=== PATIENT | female | born 1985 | race Caucasian/White ===

== ENCOUNTER 2022-09-01 15:04 | Outpatient (OUT) | payer OTHER, SELFPAY ==
[2022-09-01 15:33] LABS: Basophils Percent Auto 0.2 % (0.2-2.0); Eosinophils Absolute Auto 0.2 10^3/uL (0.0-0.7); Eosinophils Percent Auto 1.7 % (0.9-7.0); Hematocrit 41.4 % (36.0-48.0); Hemoglobin 13.9 g/dL (12.0-16.0); Immature Granulocytes Abs Auto 0.02 10^3/uL (0.00-0.03); Immature Granulocytes Pct Auto 0.2 % (0.0-0.5); Lymphocytes Absolute Auto 2.2 10^3/uL (1.2-3.8); Lymphocytes Percent Auto 23.6 % (20.5-60.0); Mean Corpuscular HGB Conc 33.6 g/dL (29.9-35.2); Mean Corpuscular Hemoglobin 27.9 pg (26.7-34.0); Mean Corpuscular Volume 83.1 fL (81.0-99.0); Mean Platelet Volume 9.6 fL (9.5-13.5); Monocytes Absolute Auto 0.4 10^3/uL (0.3-0.8); Monocytes Percent Auto 4.2 % (1.7-12.0); Neutrophils Absolute Auto 6.5 10^3/uL (1.4-6.5); Neutrophils Percent Auto 70.1 % (43.0-75.0); Platelet Count 330 10^3/uL (150-450); Red Blood Count 4.98 10^6/uL (4.20-5.40); White Blood Count 9.2 10^3/uL (4.0-11.0)
== END 2022-09-01 15:05 | disposition home or self-care (01) ==
LOC: LAB 15:05
PROVIDERS: PCP Nurse Practitioner; Visit Provider Nurse Practitioner
DX: D50.9 Iron deficiency anemia, unspecified (principal)
CPT/HCPCS: 36415; 82728; 83540; 85025

== ENCOUNTER 2022-11-22 20:25 | Outpatient (REF) | payer OTHER, SELFPAY ==
[2022-11-25 10:10] LABS: Age Gdln ACOG Testing Note (.); HPV Aptima Negative (Negative); IGP, Aptima HPV, rfx 16/18,45 Note (.)
== END 2022-11-22 20:26 | disposition home or self-care (01) ==
LOC: LAB 20:25
PROVIDERS: PCP Nurse Practitioner; Visit Provider Obstetrics & Gynecology
DX: Z01.419 Encounter for gynecological examination (general) (routine) without abnormal findings (principal)
CPT/HCPCS: 87624; G0145

== ENCOUNTER 2022-12-01 09:54 | Outpatient (OUT) | payer OTHER, SELFPAY ==
[2022-12-01 12:35] LABS: Basophils Percent Auto 0.1 % (0.2-2.0); Eosinophils Absolute Auto 0.1 10^3/uL (0.0-0.7); Eosinophils Percent Auto 1.7 % (0.9-7.0); Hematocrit 41.6 % (36.0-48.0); Hemoglobin 14.2 g/dL (12.0-16.0); Immature Granulocytes Abs Auto 0.02 10^3/uL (0.00-0.03); Immature Granulocytes Pct Auto 0.2 % (0.0-0.5); Lymphocytes Absolute Auto 1.9 10^3/uL (1.2-3.8); Lymphocytes Percent Auto 23.3 % (20.5-60.0); Mean Corpuscular HGB Conc 34.1 g/dL (29.9-35.2); Mean Corpuscular Hemoglobin 29.8 pg (26.7-34.0); Mean Corpuscular Volume 87.2 fL (81.0-99.0); Mean Platelet Volume 9.9 fL (9.5-13.5); Monocytes Absolute Auto 0.5 10^3/uL (0.3-0.8); Monocytes Percent Auto 5.4 % (1.7-12.0); Neutrophils Absolute Auto 5.7 10^3/uL (1.4-6.5); Neutrophils Percent Auto 69.3 % (43.0-75.0); Platelet Count 288 10^3/uL (150-450); Red Blood Count 4.77 10^6/uL (4.20-5.40); Red Cell Distribution Width 12.8 % (11.0-15.0); White Blood Count 8.3 10^3/uL (4.0-11.0)
[2022-12-01 12:53] LABS: Percent Iron Saturation 29.1 %
[2022-12-01 13:02] LABS: Thyroid Stimulating Hormone 0.549 uIU/mL (0.358-3.740)
== END 2022-12-01 09:55 | disposition home or self-care (01) ==
LOC: LAB 09:55
PROVIDERS: PCP Nurse Practitioner; Visit Provider Obstetrics & Gynecology
DX: N93.9 Abnormal uterine and vaginal bleeding, unspecified (principal)
CPT/HCPCS: 36415; 82728; 83540; 83550; 84443; 85025

== ENCOUNTER 2023-02-04 15:40 | Outpatient (OUT) | payer OTHER, SELFPAY ==
[2023-02-04 16:30] LABS: Free T4 0.97 ng/dL (0.76-1.46)
== END 2023-02-04 15:41 | disposition home or self-care (01) ==
LOC: LAB 15:40
PROVIDERS: PCP Nurse Practitioner; Visit Provider Obstetrics & Gynecology
DX: R79.89 Other specified abnormal findings of blood chemistry (principal)
CPT/HCPCS: 36415; 84439

== ENCOUNTER 2023-11-07 13:34 | Outpatient (REF) | payer OTHER, SELFPAY ==
--- OUTSIDE RECORDS SUMMARY | 2023-11-10 13:57 | XMS_ITS | CCD ---
Author Organization [facility] Care Team Providers Care Auto Cleaner Name Role Phone PHONG OSEI Attending Unavailable PHONG OSEI Consulting Unavailable PHONG OSEI Admitting Unavailable REQUEST, NONE LISTED Primary Care Unavaila ble AICHHOLZ, MAINTAINABILITY ENGINEER DANII Admitting Unavailable AICHHOLZ, MAINTAINABILITY ENGINEER DANII Attending Unavailable AICHHOLZ, MAINTAINABILITY ENGINEER DANII Consulting Unavailable AICHHOLZ, MAINTAINABILITY ENGINEER DANII Primary Care Unavailable AICHHOLZ, MAINTAINABILITY ENGINEER DANII Admitting Unavailable AICHHOLZ, MAINTAINABILITY ENGINEER DANII Attending Unavailable AICHHOLZ, MAINTAINABILITY ENGINEER DANII Consulting Unavailable AICHHOLZ, MAINTAINABILITY ENGINEER DANII Primary Care Unavailable AICHHOLZ, MAINTAINABILITY ENGINEER DANII Attending Unavailable AICHHOLZ, MAINTAINABILITY ENGINEER DANII Consulting Unavailable AICHHOLZ, MAINTAINABILITY ENGINEER DANII Primary Care Unavailable AICHHOLZ, MAINTAINABILITY ENGINEER DANII Admitting Unavailable AMILCAR STILL Attending Unavailable AMILCAR STILL Consulting Unavailable AMILCAR STILL Admitting Unavailable REQUEST, NONE LISTED Primary Care Unavaila ble Amilcar Still Attending Provider Danii Daly Primary Care Provider Danii Daly Referring Provider Amilcar Still Attending Provider [phone] Danii Daly Primary Care Provider Danii Daly Referring Provider [phone] AMILCAR STILL Attending Unavailable AMILCAR STILL Attending Unavailable Danii Daly Primary Care Provider [phone] Amilcar Still Attending Provider [phone] Amilcar Still Attending Unavailable Danii Daly Primary Care Unavailable Guy Amilcar Admitting Unavailable Amilcar Still Attending Unavailable Danii Daly Primary Care Unavailable Guy, Amilcar Admitting Unavailable Guy, Amilcar Admitting Unavailable Guy, Amilcar Attending Unavailable Danii Daly Primary Care Unavailable Danii Daly Referring Unavailable Problems Active Problems Problem Classification Problem Date Documented Da te Episodic/Chronic Deficiency and other anemia (4 sources) Anemia, unspecified; Translations: [ANEMIA UNSPECIFIED] Onset: 05-30-2022 Episodic Other female genital disorders (1 source) Abnormal uterine and vaginal bleeding, unspecified; Translations: [Abnormal uterine and vaginal bleeding, unspecified] Onset: 12-17-2022 Chronic Unclassified (1 source) Unspecified lump in the left breast, overlapping quadrants; Translations: [Unspecified lump in the left breast, overlapping quadrants] Onset: 12-10-2022 Past or Other Problems Problem Classification Problem Date Documented Date Episodic/Chronic Administrative/social admission (4 sources) Encounter for pre-employment examination; Translations: [ENCOUNTER FOR PRE-EMPLOYMENT EXAM] Onset: 02-03-2022 Episodic Immunizations and screening for infectious disease (1 source) Encounter for screening for human papillomavirus (HPV); Translations: [ENC SCREENING HUMAN PAPILLOMAVIRUS] Onset: 11-19-2021 Episodic Other screening for suspected conditions (not mental disorders or infectious disease) (4 sources) Encounter for screening for malignant neoplasm of cervix; Translations: [ENC SCREENING MALIG NEOPLASM CERV] Onset: 11-18-2021 Episodic Results Test Name Value Interpretation Reference Range Facility US transvaginalon 12-17-2022 US transvaginal [facility] [place] [address] Ultrasound Report Signed Patient: Briana Mason MR#: [id number] : 1985 Acct:[id number] Age/Sex: 37 / F ADM Date: 12/17/22 Loc: Room: [facility] Dr: Amilcar Still Ordering Provider: Amilcar Still DO Date of Service: 12/17/22 US/US transvaginal: N93.9 ([id number]) US/US pelvic complete: N93.9 Copies to: Amilcar Still DO TRANSABDOMINAL AND TRANSVAGINAL PELVIC ULTRASOUND HISTORY: Heavy bleeding during menstruation FINDINGS: The uterus measures 11.0 x 4.6 x 6.2 cm uterus is elongated and retroverted.. No uterine lesion identified. The endometrium has a total combined thickness of 13mm. The RIGHT ovary measures 3.3 x 1.7 x 1.5 cm LEFT ovary measures 3.0 x 3.3 x 2.2 cm Bilateral ovarian blood flow identified. No free fluid identified. There is no adnexal mass identified. Nonspecific hypoechoic tissue adjacent to the LEFT ovary. US/US pelvic complete IMPRESSION: Unremarkable transabdominal and transvaginal pelvic ultrasound Impression dictated by: Norman Concepcion M.D.12/17/2022 5:29 PM Dictation Location: [place] [address] Tech: Ana Hernesto Transcribed By: [facility] 12/17/221728 Dictated By: Norman Concepcion DO 12/17/221725 Signed By: 12/17/221728 Normal [facility] MM diagnostic mammo BI w/CAD on 12-10-2022 MM diagnostic mammo BI w/CAD [facility] [place] [address] Ultrasound Report Signed Patient: Briana Mason MR#: [id number] : 1985 Acct:[id number] Age/Sex: 37 / F ADM Date: 12/10/22 Loc: [place] Room: Type: [facility] Attending Dr: Amilcar Still Ordering Provider: Amilcar Still DO Date of Service: 12/10/22 MM/MM diagnostic mammo BI w/CAD: SEE ORDER ([id number]) US/US breast LT complete: SEE ORDER Copies to: Amilcar Still DO CLINICAL DATA: Lump left breast. BilateralDIAGNOSTIC MAMMOGRAM - WITH TOMOSYNTHESIS AND CAD , leftLIMITED BREAST ULTRASOUND COMPARISON:Baseline study Tomosynthesis imaging was obtained using low-dose digital technique. This examination was reviewed with the aid of CAD. Additional ultrasound imaging was also obtained. Mammogram: The breasts are composed of scattered fibroglandular densities. No mammographic abnormality is seen involving the area of lump at the 2:00 position of the left breast. Focal asymmetry is seen at the approximately 12:00 position of the left breast, middle depth which partially compresses on the spot compression view. Ultrasound: In the area palpable lump at the 2:00 position of the left breast approximately 4 to 5 cm from nipple, no solid mass or cyst is noted. In the area of focal asymmetry at the 12:00 position of the left breast approximately 6 cm from nipple, no solid mass or cyst is noted. Incidentally note is made of a intramammary lymph node at the 5:00 position of the left breast. US/US breast LT complete IMPRESSION: NO MAMMOGRAPHIC OR ULTRASOUND EVIDENCE OF MALIGNANCY. THE PATIENT'S PALPABLE LUMP SHOULD BE HANDLED ON A CLINICAL BASIS. ROUTINE FOLLOW-UP IS RECOMMENDED IN ONE YEAR. RESULT CODE: 1 Negative DENSITY CODE: 2 (approximately 25-50% glandular) FOLLOW UP: 1YR The false-negative rate of mammography is approximately 10-percent. Management of a palpable abnormality must be based on clinical grounds. Impression dictated by: Martin Conn Jr., D.O.12/10/2022 8:46 AM Dictation Location: [facility] Tech: Jing Braden Transcribed By: RAJ 12/10/22845 Dictated By: Martin Conn Jr, DO 12/10/2244 Signed By: 12/10/22845 Normal [facility] OCC BLD IMMUNO SCREENon 05-09 OCCULT BLOOD Negative Normal NEGATIVE [facility] Comment on above: Performed By: #### H EPBSRF #### [facility] [address] [address] [address] Yanely Nuñez FERRITINon 05-28-2022 Ferritin [Mass/Vol] 5.0 ng/mL Critically low 6.2-137.[address] [facility] Comment on above: Performed By: #### I NICHOLE, VITB12, FERR #### [facility] [address] [place], [place] [address] Dr. Yanely Nuñez IRONon 05-28-2022 Iron [Mass/Vol] 14.0 ug/dL Critically low 50.0-170.0 [facility] Comment on above: Performed By: #### I NICHOLE VITB12, FERR #### [facility] [address] [place] [address] Dr. Yanely Nuñez VITAMIN B12on 05-28-2022 Cobalamin (Vitamin B12) [Mass/Vol] 929.0 pg/mL Normal 193.0-986.0 [facility] Comment on above: Performed By: #### I NICHOLE VITB12, FERR #### [facility] [address] [place] [address] Dr. Yanely Nuñez CBC AUTO DIFFon 05-27-2022 BASO # 0.0 103/ul Normal 0.0-0.1 [facility] Comment on above: Performed By: #### C BC #### [facility] [address] [place] [address] Dr. Yanely Nuñez Basophils/100 WBC (Bld) 0.1 % Critically low 0.2-2.0 [facility] Comment on above: Performed By: #### C BC #### [facility] [address] [place] [address] Dr. Yanely Nuñez EO # 0.1 103/ul Normal 0.0-0.7 [facility] Comment on above: Performed By: #### C BC #### [facility] [address] [place] [address] Dr. Yanely Nuñez Eosinophils/100 WBC (Bld) 2.0 % Normal 0.9-7.0 [facility] Comment on above: Performed By: #### C BC #### [facility] [address] [place] [address] Dr. Yanely Nuñez Erythrocyte distribution width (RBC) [Ratio] 17.1 % Critically high 11.0-15.0 [facility] Comment on above: Performed By: #### C BC #### [facility] [address] [place] [address] Dr. Yanely Nuñez Hematocrit (Bld) [Volume fraction] 32.1 % Critically low 36.0-48.0 [facility] Comment on above: Performed By: #### C BC #### [facility] [address] [place] [address] Dr. Yanely Nuñez Hemoglobin (Bld) [Mass/Vol] 9.3 g/dL Critically low 12.0-16.0 [facility] Comment on above: Performed By: #### C BC #### [facility] [address] [place] [address] Dr. Yanely Nuñez IG # 0.02 10e3/ul Normal 0.00-0.03 [facility] Comment on above: Performed By: #### C BC #### [facility] [address] [place] [address] Dr. Yanely Nuñez IG % 0.3 % Normal 0.0-0.5 [facility] Comment on above: Performed By: #### C BC #### [facility] [address] [place] [address] Dr. Yanely Nuñez LYMPH # 1.5 103/ul Normal 1.2-3.8 [facility] Comment on above: Performed By: #### C BC #### [facility] [address] [place] [address] Dr. Yanely Nuñez Lymphocytes/100 WBC (Bld) 22.5 % Normal 20.5-60.0 [facility] Comment on above: Performed By: #### C BC #### [facility] [address] [place] [address] Dr. Yanely Nuñez MANUAL DIFF REQ NO Normal [facility] Comment on above: Performed By: #### C BC #### [facility] [address] [place] [address] Dr. Yanely Nuñez MCH (RBC) [Entitic mass] 20.3 pg Critically low 26.7-34.0 [facility] Comment on above: Performed By: #### C BC #### [facility] [address] [place] [address] Dr. Yanely Nuñez MCHC (RBC) [Mass/Vol] 29.0 g/dL Critically low 29.9-35.2 [facility] Comment on above: Performed By: #### C BC #### [facility] [address] [place] [address] Dr. Yanely Nuñez MCV (RBC) [Entitic vol] 70.1 fL Critically low 81.0-99.0 [facility] Comment on above: Performed By: #### C BC #### [facility] [address] [place] [address] Dr. Yanely Nuñez MONO # 0.5 103/ul Normal 0.3-0.8 [facility] Comment on above: Performed By: #### C BC #### [facility] [address] [address] [address] Yanely Nuñez Monocytes/100 WBC (Bld) 7.0 % Normal 1.7-12.0 [facility] Comment on above: Performed By: #### C BC #### [facility] [address] [place] [address] Dr. Yanely Nuñez NEUT # 4.7 103/ul Normal 1.4-6.5 [facility] Comment on above: Performed By: #### C BC #### [facility] [address] [place] [address] Dr. Yanely Nuñez Neutrophils/100 WBC (Bld) 68.1 % Normal 43.0-75.0 [facility] Comment on above: Performed By: #### C BC #### [facility] [address] [place] [address] Dr. Yanely Nuñez Platelet mean volume (Bld) [Entitic vol] 9.9 fL Normal 9.5-13.5 [facility] Comment on above: Performed By: #### C BC #### [facility] [address] [place] [address] Dr. Yanely Nuñez PLT 488 103/ul Critically high 150-450 [facility] Comment on above: Performed By: #### C BC #### [facility] [address] [place] [address] Dr. Yanely Nuñez RBC 4.58 106/ul Normal 4.20-5.40 [facility] Comment on above: Performed By: #### C BC #### [facility] [address] [place] [address] Dr. Yanely Nuñez WBC 6.9 103/ul Normal 4.0-11.0 [facility] Comment on above: Performed By: #### C BC #### [facility] [address] [place] [address] Dr. Yanely Nuñez GLYCOHEMOGLOBIN A1Con 2022 ADA RECOMMENDATION SEE BELOW Normal [facility] Comment on above: Result Comment: ADA RECOMMENDED LIMIT 4.0 - 6.0 ADA THERAPEUTIC TARGET < 7.0 ACTION SUGGESTED > 7.0 Performed By: #### A 1C #### [facility] [address] [place] [address] Dr. Yanely Nuñez Glucose [Mass/Vol] 114 mg/dL Normal [facility] Comment on above: Performed By: #### A 1C #### [facility] [address] [place] [address] Dr. Yanely Nuñez HbA1c (Bld) [Mass fraction] 5.6 % Normal 4.5-6.2 [facility] Comment on above: Performed By: #### A 1C #### [facility] [address] [place] [address] Dr. Yanely Nuñez LIPID PROFILEon 05-27-2022 CHOL-HDL RATIO NORM SEE BELOW Normal [facility] Comment on above: Result Comment: 3.3 - 4.4 LOW RISK 4.4 - 7.1 AVERAGE RISK 7.1 - 11.0 MODERATE RISK >11.0 HIGH RISK Performed By: #### C MP, LIPID, TSH #### [facility] [address] [place] [address] Dr. Yanely Nuñez Cholesterol [Mass/Vol] 207 mg/dL Critically high <=200 [facility] Comment on above: Performed By: #### C MP, LIPID, TSH #### [facility] [address] [address] [address] Yanely Nuñez Cholesterol in HDL [Mass/Vol] 54 mg/dL Normal 40-60 [facility] Comment on above: Performed By: #### C MP, LIPID, TSH #### [facility] [address] [address] [address] Yanely Nuñez Cholesterol in LDL [Mass/Vol] 141.0 mg/dL Normal [facility] Comment on above: Performed By: #### C MP, LIPID, TSH #### [facility] [address] [address] [address] Yanely Nuñez Cholesterol.total/Ch olesterol in HDL [Mass ratio] 3.8 {ratio} Normal [facility] Comment on above: Performed By: #### C MP, LIPID, TSH #### [facility] [address] [address] [address] Yanely Nuñez HDL NORMAL > or = 60 mg/dl - LO W CARDIOVASCULAR RISK <40 mg/dl - HIGH CARDIOVASCULAR RISK Normal [facility] Comment on above: Performed By: #### C MP, LIPID, TSH #### [facility] [address] [place] [address] Dr. Yanely Nuñez LDL CALC NORMAL SEE BELOW Normal [facility] Comment on above: Result Comment: <100 mg/dl OPTIMAL 100 - 129 mg/dl NEAR OR ABOVE OPTIMAL 130 - 159 mg/dl BORDERLINE HIGH 160 - 189 mg/dl HIGH >190 mg/dl VERY HIGH Performed By: #### C MP, LIPID, TSH #### [facility] [address] [address] [address] Yanely Nuñez Triglyceride [Mass/Vol] 60 mg/dL Normal <=150 [facility] Comment on above: Performed By: #### C MP, LIPID, TSH #### [facility] [address] [place] [address] Dr. Yanely Nuñez VLDL CALC 12.0 mg/dL Normal [facility] Comment on above: Performed By: #### C MP, LIPID, TSH #### [facility] [address] [address] [address] Yanely Nuñez PROF 14(COMP METB)on 023 Albumin [Mass/Vol] 4.0 g/dL Normal 3.4-5.0 [facility] Comment on above: Performed By: #### C MP, LIPID, TSH #### [facility] [address] [place] [address] Dr. Yanely Nuñez Albumin/Globulin [Mass ratio] 1.0 {ratio} Normal [facility] Comment on above: Performed By: #### C MP, LIPID, TSH #### [facility] [address] [address] [address] Yanely Nuñez ALP [Catalytic activity/Vol] 57 U/L Normal 46-116 [facility] Comment on above: Performed By: #### C MP, LIPID, TSH #### [facility] [address] [address] [address] Yanely Nuñez ALT [Catalytic activity/Vol] 111 U/L Critically high 14-59 [facility] Comment on above: Performed By: #### C MP, LIPID, TSH #### [facility] [address] [address] [address] Yanely Nuñez Anion gap [Moles/Vol] 13.1 mmol/L Normal [facility] Comment on above: Performed By: #### C MP, LIPID, TSH #### [facility] [address] [address] [address] Yanely Nuñez AST [Catalytic activity/Vol] 34 U/L Normal 15-37 [facility] Comment on above: Performed By: #### C MP, LIPID, TSH #### [facility] [address] [address] [address] Yanely Nuñez Bilirubin [Mass/Vol] 0.4 mg/dL Normal 0.2-1.0 [facility] Comment on above: Performed By: #### C MP, LIPID, TSH #### [facility] [address] [address] [address] Yanely Nuñez Calcium [Mass/Vol] 9.5 mg/dL Normal 8.5-10.1 [facility] Comment on above: Performed By: #### C MP, LIPID, TSH #### [facility] [address] [address] [address] Yanely Nuñez Chloride [Moles/Vol] 104 mmol/L Normal 98-107 [facility] Comment on above: Performed By: #### C MP, LIPID, TSH #### [facility] [address] [address] [address] Yanely Nuñez CO2 [Moles/Vol] 27.2 mmol/L Normal 21.0-32.0 [facility] Comment on above: Performed By: #### C MP, LIPID, TSH #### [facility] [address] [place] [address] Dr. Yanely Nuñez Creatinine [Mass/Vol] 0.76 mg/dL Normal 0.55-1.02 [facility] Comment on above: Performed By: #### C MP, LIPID, TSH #### [facility] [address] [address] [address] Yanely Nuñez EGFR-AF BANGLADESHI >60 Normal >=60 [facility] Comment on above: Performed By: #### C MP, LIPID, TSH #### [facility] [address] [place] [address] Dr. Yanely Nuñez EGFR-NON AF BANGLADESHI >60 Normal >=60 [facility] Comment on above: Performed By: #### C MP, LIPID, TSH #### [facility] [address] [place] [address] Dr. Yanely Nuñez Globulin (S) [Mass/Vol] 4.0 g/dL Normal [facility] Comment on above: Performed By: #### C MP, LIPID, TSH #### [facility] [address] [place] [address] Dr. Yanely Nuñez Glucose [Mass/Vol] 86 mg/dL Normal 74-106 [facility] Comment on above: Performed By: #### C MP, LIPID, TSH #### [facility] [address] [address] [address] Yanely Nuñez Potassium [Moles/Vol] 4.3 mmol/L Normal 3.5-5.1 [facility] Comment on above: Performed By: #### C MP, LIPID, TSH #### [facility] [address] [place] [address] Dr. Yanely Nuñez Protein [Mass/Vol] 8.0 g/dL Normal 6.4-8.2 [facility] Comment on above: Performed By: #### C MP, LIPID, TSH #### [facility] [address] [place] [address] Dr. Yanely Nuñez Sodium [Moles/Vol] 140 mmol/L Normal 136-145 [facility] Comment on above: Performed By: #### C MP, LIPID, TSH #### [facility] [address] [place] [address] Dr. Yanely Nuñez Urea nitrogen [Mass/Vol] 13.0 mg/dL Normal 7.0-18.0 [facility] Comment on above: Performed By: #### C MP, LIPID, TSH #### [facility] [address] [place] [address] Dr. Yanely Nuñez Urea nitrogen/Creatinine [Mass ratio] 17.1 mg/mg Normal [facility] Comment on above: Performed By: #### C MP, LIPID, TSH #### [facility] [address] [place] [address] Dr. Yanely Nuñez TSHon 05-27-2022 TSH 0.862 uIU/mL Normal 0.358-3.740 [facility] Comment on above: Performed By: #### C MP, LIPID, TSH #### [facility] [address] [place] [address] Dr. Yanely Nuñez QUANTIFERON TB GOLD PLUSon 1 QuantiFERON Criteria Comment [facility] Comment on above: Result Comment: Leoncio tiFERON-TB Gold Plus is a qualitative indirect test for M tuberculosis infection (including disease) and is intended for use in conjunction with risk assessment, radiography, and other medical and diagnostic evaluations. The QuantiFERON-TB Gold Plus result is determined by subtracting the Nil value from either TB antigen (Ag) value. The Mitogen tube serves as a control for the test. Performed By: #### H EPBSRF #### [facility] [address] [place] [address] Dr. Yanely Nuñez QuantiFERON Incubation Incubation performed. Normal [facility] Comment on above: Performed By: #### H EPBSRF #### [facility] [address] [place] [address] Dr. Yanely Nuñez QuantiFERON Mitogen Value >10.00 Normal [facility] Comment on above: Performed By: #### H EPBSRF #### [facility] [address] [address] [address] Yanely Nuñez QuantiFERON Nil Value 0.03 IU/mL Normal [facility] Comment on above: Performed By: #### H EPBSRF #### [facility] [address] [place] [address] Dr. Yanely Nuñez QuantiFERON TB1 Ag Value 0.04 IU/mL Normal [facility] Comment on above: Performed By: #### H EPBSRF #### [facility] [address] [address] [address] Yanely Nuñez QuantiFERON TB2 Ag Value 0.03 IU/mL Normal [facility] Comment on above: Performed By: #### H EPBSRF #### [facility] [address] [place] [address] Dr. Yanely Nuñez QuantiFERON-TB Gold Plus Negative Normal Negative [facility] Comment on above: Result Comment: No r esponse to M tuberculosis antigens detected. Infection with M tuberculosis is unlikely, but high risk individuals should be considered for additional testing (ATS/IDSA/CDC Clinical Practice Guidelines, 2017). The reference range is an Antigen minus Nil result of <0.35 IU/mL. Chemiluminescence immunoassay methodology Performed By: #### H EPBSRF #### [facility] [address] [place] [address] Dr. Yanely Nuñez HEPATITIS B SURFACE ANTIBODY , QUANTon 02-05-2022 Hepatitis B Surf AB Quant >1000.0 Normal Immunity>9.9 [facility] Comment on above: Result Comment: Stat us of Immunity Anti-HBs Level Inconsistent with Immunity 0.0 - 9.9 Consistent with Immunity >9.9 Performed By: #### H EPBSRF #### [facility] [address] [place] [address] Dr. Yanely Nuñez MMR IMMUNITYon 02-05-2022 Mumps Abs, IgG 56.4 AU/mL Normal Immune >10.9 [facility] Comment on above: Result Comment: Nega tive <9.0 Equivocal 9.0 - 10.9 Positive >10.9 A positive result generally indicates past exposure to Mumps virus or previous vaccination. Performed By: #### H EPBSRF #### [facility] [address] [place] [address] Dr. Yanely Nuñez Rubella Antibodies, IgG 2.90 index Normal Immune >0.99 [facility] Comment on above: Result Comment: Non- immune <0.90 Equivocal 0.90 - 0.99 Immune >0.99 Performed By: #### H EPBSRF #### [facility] [address] [place] [address] Dr. Yanely Nuñez Rubeola Ab, IgG 183.0 AU/mL Normal Immune >16.[address] [facility] Comment on above: Result Comment: Nega tive <13.5 Equivocal 13.5 - 16.4 Positive >16.4 Presence of antibodies to Rubeola is presumptive evidence of immunity except when acute infection is suspected. Performed By: #### H EPBSRF #### [facility] [address] [place] [address] Dr. Yanely Nuñez VARICELLA IGG ABon 2 Varicella Zoster IgG 483 index Normal Immune >165 [facility] Comment on above: Result Comment: Nega tive <135 Equivocal 135 - 165 Positive >165 A positive result generally indicates exposure to the pathogen or administration of specific immunoglobulins, but it is not indication of active infection or stage of disease. Performed By: #### H [id number] #### [facility] [address] [place] [address] Dr. Yanely Nuñez PAP ACOG PANEL 2: 30 to 65on 11-25-2021 . . Normal [facility] Comment on above: Result Comment: Perf ormed at: WB Performed By: #### [id number] #### [facility] [address] [place] [address] Dr. Yanely Nuñez Age Gdln ACOG Testing 30-65 [facility] Comment on above: Performed By: #### [id number] #### [facility] [address] [place] [address] Dr. Yanely Nuñez DIAGNOSIS: Comment Normal [facility] Comment on above: Result Comment: NEGA TIVE FOR INTRAEPITHELIAL LESION OR MALIGNANCY. Performed at: WB Performed By: #### [id number] #### [facility] [address] [place] [address] Dr. Yanely Nuñez HPV Aptima Negative Normal Negative [facility] Comment on above: Result Comment: This nucleic acid amplification test detects fourteen high-risk HPV types (16,18,31,33,35,39,45,51,52,56,58,59,66,68) without differentiation. Performed at: =G Performed By: #### [id number] #### [facility] [address] [address] [address] Yanely Nuñez Methodology: Comment Normal [facility] Comment on above: Result Comment: This liquid based ThinPrep(R) pap test was screened with the use of an image guided system. Performed at: WB Performed By: #### [id number] #### [facility] [address] [place] [address] Dr. Yanely Nuñez Note: Comment Normal [facility] Comment on above: Result Comment: The Pap smear is a screening test designed to aid in the detection of premalignant and malignant conditions of the uterine cervix. It is not a diagnostic procedure and should not be used as the sole means of detecting cervical cancer. Both false-positive and false-negative reports do occur. . Performed at: WB Performed By: #### [id number] #### [facility] [address] [place] [address] Dr. Yanely Nuñez Performed by: Comment Normal [facility] Comment on above: Result Comment: Darlin Cline, [employer] Management System Operator (ASCP) Performed at: WB Performed By: #### [id number] #### [facility] [address] [place] [address] Dr. Yanely Nuñez Specimen adequacy: Comment Normal [facility] Comment on above: Result Comment: Sati sfactory for evaluation. Endocervical and/or squamous metaplastic cells (endocervical component) are present. Performed at: WB Performed By: #### [id number] #### [facility] [address] [place] [address] Dr. Yanely Nuñez Encounters Encounter Date Encounter Type Care Provider Facility Start: 11-07-2023 End: 11-07-2023 ambulatory AMILCAR GUY Not Available Start: 11-07-2023 End: 11-07-2023 Departed Referred Danii Addy Work Phone: [facility] Path [facility] Start: 01-26-2023 End: 01-26-2023 ambulatory AMILCAR GUY Not Available Start: 12-17-2022 End: 12-17-2022 Patient encounter procedure Danii Addy Work Phone: [facility] Work Phone: Start: 12-17-2022 End: 12-17-2022 ambulatory Danii Valdez Salmat[place]abby Work Phone: [facility] Work Phone: Start: 12-10-2022 End: 12-10-2022 Patient encounter procedure Danii Urenagabby Work Phone: [facility] Work Phone: Start: 12-10-2022 End: 12-10-2022 ambulatory Danii Valdez [place] Work Phone: [facility] Work Phone: Start: 05-31-2022 Encounter for genera l adult medical examination without abnormal findings NAYELY DALY [facility] Start: 05-30-2022 End: 05-30-2022 ambulatory 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 Facility:[facility] Start: 05-28-2022 End: 05-29-2022 ambulatory NAYELY DALY Facility:[facility] Start: 05-27-2022 End: 05-28-2022 ambulatory NAYELY DALY Facility:[facility] Start: 05-27-2022 End: 05-28-2022 Encounter for general adult medical examination without abnormal findings NAYELY DALY Facility:[facility] Start: 02-03-2022 End: 02-04-2022 ambulatory PHONG SEA Facility:[facility] Start: 11-18-2021 End: 11-18-2021 ambulatory AMILCAR STILL Facility:[facility] Procedures Date Procedure Procedure Detail Performing Clinician Start: 12-17-2022 Pelvic echography Danii Daly Work Phone: Start: 12-17-2022 Transvaginal echography Danii Daly Work Phone: Start: 12-10-2022 Bilateral mammography L evelyn Daly Work Phone: Payers Date Payer Category Payer Unknown [id number] [id number] 1985 Unknown [id number] 2.16.84 [id number] 1985 Unknown [id number] 2.16.84 [id number] 1985 Unknown [id number] 2.16.84 [id number] 1985 Unknown [id number] 2.16.84 [id number] 1985 Unknown [id number] [id number] 1959 Private Health Insurance [id number] 1959 Private Health Insurance [id number] 1959 Self-pay Unknown [id number] 2.16.84 [id number] Unknown [id number] 2.16.8 [id number] Unknown [id number] 2.16.8 [id number] Unknown [id number] 2.16.8 [id number] Social History Date Type Detail Facility Tobacco smoking stat [facility] Unknown if ever smoked [facility] Work Phone: Start: 1985 Sex Assigned At Female F [facility] Evaluation note Note Date & Type Note Facility Evaluation note No assessment information availa chery [facility] Work Phone: Summary Purpose Family History No Family History Records FoundNo Family History Records FoundNo Family History Records Found Advance Directives No Advanced Directives Records Found Advance Directive Response Recorded Date/ Time Advance Directives No December 02, 2022 3:01pm Advance Directive Response Recorded Date/ Time Advance Directives No December 02, 2022 2:01pm Chief Complaint and Reason for Visit Chief Complaint Screening Chief Complaint Screening n93.9 Chief Complaint Unknown Additional Source Comments INFORMATION SOURCE (unrecogn ized section and content) DATE CREATED AUTHOR 06/04/2022 [facility] DATE CREATED AUTHOR AUTHOR'S ORGANIZ ATION 11/08/2023 [facility] EPIC DATE CREATED AUTHOR AUTHOR'S ORGANIZ ATION 11/10/2023 [facility] Care Teams (unrecognized sec tion and content) Team Status: Active Member Role Status Dates Danii Daly Primary Care Provider Active Team Status: Inactive Member Role Status Dates Amilcar Still Attending Provider Active Danii Daly Primary Care Provider, Referring Provi petty Active Team Status: Inactive Member Role Status Dates Danii Daly Primary Care Provider Active Amilcar Still Attending Provider Active Team Status: Inactive Member Role Status Dates Danii Daly Primary Care Provider Active Sta rt: November 07, 2023 End: November 07, 2023 Amilcar Still DO Attending Provider Active Start : November 07, 2023 End: November 07, 2023 Goals (unrecognized section and content) Goals may be documented in a n alternate sectionGoals may be documented in an alternate sectionGoals may be documented in an alternate section FOR RECORDS PERTAINING TO PATIENTS WHO ARE OR HAVE BEEN ENROLLED IN A CHEMICAL DEPENDENCY/SUBSTANCEABUSE PROGRAM, SOME INFORMATION MAY BE OMITTED. This clinical summary was aggregated from multiple sources. Caution should be exercised in using it in the provision of clinical care. This summary normalizes information from multiple sources, and as a consequence, information in this document may materially change the coding, format and clinical context of patient data. In addition, data may be omitted in some cases. CLINICAL DECISIONS SHOULD BE BASED ON THE PRIMARY CLINICAL RECORDS. [facility] [facility]. provides no warranty or guarantee of the accuracy or completeness of information in this document.
== END 2023-11-07 13:35 ==
LOC: LAB 13:34
PROVIDERS: PCP Nurse Practitioner; Visit Provider Obstetrics & Gynecology
DX: N92.0 Excessive and frequent menstruation with regular cycle (principal)
CPT/HCPCS: 88305

== ENCOUNTER 2023-11-14 11:09 | Outpatient (OUT) | payer OTHER, SELFPAY ==
--- OUTSIDE RECORDS SUMMARY | 2023-11-14 11:17 | XMS_ITS | CCD ---
Author Organization [facility] Care Team Providers Care Template Layout Worker Name Role Phone PHONG OSEI Attending Unavailable PHONG OSEI Consulting Unavailable PHONG OSEI Admitting Unavailable REQUEST, NONE LISTED Primary Care Unavaila ble AICHHOLZ, COMMODITY BUYER DANII Admitting Unavailable AICHHOLZ, COMMODITY BUYER DANII Attending Unavailable AICHHOLZ, COMMODITY BUYER DANII Consulting Unavailable AICHHOLZ, COMMODITY BUYER DANII Primary Care Unavailable AICHHOLZ, COMMODITY BUYER DANII Admitting Unavailable AICHHOLZ, COMMODITY BUYER DANII Attending Unavailable AICHHOLZ, COMMODITY BUYER DANII Consulting Unavailable AICHHOLZ, COMMODITY BUYER DANII Primary Care Unavailable AICHHOLZ, COMMODITY BUYER DANII Attending Unavailable AICHHOLZ, COMMODITY BUYER DANII Consulting Unavailable AICHHOLZ, COMMODITY BUYER DANII Primary Care Unavailable AICHHOLZ, COMMODITY BUYER DANII Admitting Unavailable AMILCAR STILL Attending Unavailable AMILCAR STILL Consulting Unavailable AMILCAR STILL Admitting Unavailable REQUEST, NONE LISTED Primary Care Unavaila ble Amilcar Still Attending Provider [phone] Danii Daly Primary Care Provider [phone] Danii Daly Referring Provider [phone] Amilcar Still Attending Provider [phone] Danii Daly Primary Care Provider Danii Daly Referring Provider AMILCAR STILL Attending Unavailable AMILCAR STILL Attending Unavailable Danii Daly Primary Care Provider DO Amilcar Still Attending Provider [phone] Amilcar Still Attending Unavailable Danii Daly Primary Care Unavailable Guy, Amilcar Admitting Unavailable Guy, Amilcar Attending Unavailable SalmatirsoLeila pierrea José Miguel Primary Care Unavailable Guy, Amilcar Admitting Unavailable Guy, Amilcar Admitting Unavailable Guy, Amilcar Attending Unavailable Salmatirsogabby Danii Valdez Primary Care Unavailable Leila Dalya José Miguel Referring Unavailable Problems Active Problems Problem Classification [...] Results Test Name Value Interpretation Reference Range [facility] 11-07-2023 L Specimen: [id number] Received: 11/08/23 Status: PATIENCE Alfredo Num: [id number] Spec Type: Surgical Subm Dr: Amilcar Still Tissues: A Endometrium - Biopsy (ENDOMETRIAL BX) Procedures: HE/2, Gross/Micro L4 Age/ Patient Sex Location Account Attending Physician Talha Gonzalez 38/F LABELL [id number] Amilcar Still SPEC NUM: [id number] RECD: 11/08/23 STATUS: PATIENCE ALFREDO NUM: [id number] SHARRI: 11/07/23- SUBM DR: Amiclar Still ENTERED: 11/08/[address] [facility] DR: Bhavya Best SPEC TYPE: Surgical DEPT: JUAN CARLOS MEEHAN ENTERED BY: [id number] RECV BY: [id number] ORDERED: HE/2, Gross/Micro L4 ORDERED: HE/2, Gross/Micro L4 Pathological Diagnosis Endometrial biopsy: -Multiple small strips of the slightly disordered proliferative endometrium of the early to mid phase type without hyperplasia or atypia identified Clinical Information Menorrhagia N92.0 Gross Description The specimen is received in formalin with the patient's name and endometrial biopsy and consists of multiple zhao-pink, mucoid, soft tissue fragments measuring 2.0 x 1.5 x 0.3 cm in aggregate. The specimen is filtered and entirely submitted in cassette A1. Microscopic Description Microscopic examinations are performed supporting the above interpretation -------- Specimen: [id number] Received: 11/08/23 Status: PATIENCE Alfredo Num: [id number] Spec Type: Surgical Subm Dr: Amilcar Still Tissues: A Endometrium - Biopsy (ENDOMETRIAL BX) Procedures: ARDEN/Burak, Gross/Micro L4 -------- Patient: Talha Gonzalez [id number] (Continued) -------- Specimen: [id number] Received: 11/08/23 (Continued) Signed (signature on file) Javon Nuñez MD 11/10/23 1053 -------- Specimen: [id number] Received: 11/08/23 Status: PATIENCE Alfredo Num: [id number] Spec Type: Surgical Subm Dr: Amilcar Still Tissues: A Endometrium - Biopsy (ENDOMETRIAL BX) Procedures: ARDEN/Allyssa Sumner/Cora L4 -------- Patient: Talha Gonzalez [id number] (Continued) -------- Specimen: [id number] Received: 11/08/23 (Continued) CPT Codes 16585 -------- -------- Specimen: [id number] Received: 11/08/23 Status: PATIENCE Juni Num: [id number] Spec Type: Surgical Subm Dr: Amilcar Still Tissues: A Endometrium - Biopsy (ENDOMETRIAL BX) Procedures: HE/Burak, Gross/Micro L4 -------- Patient: Talha Gonzalez [id number] (Continued) -------- Signed (signature on file) Javon Nuñez MD 11/10/23 1053 Normal [facility] US transvaginalon 12-17-2022 [place] [address] Ultrasound Report Signed Patient: Talha Gonzalez MR#: [id number] : 1985 Acct:[id number] Age/Sex: 37 / F ADM Date: 12/17/22 Loc: Room: Type: [facility] CLI Attending Dr: Amilcar Still Ordering Provider: Amilcar Still DO Date of Service: 12/17/22 US/US transvaginal: N93.9 ([id number]) US/US pelvic complete: N93.9 Copies to: Amilcar [...] Norman Concepcion M.D.12/17/2022 5:29 PM Dictation Location: [place] [address] Tech: Ana Eric Transcribed By: [facility] 12/17/221728 Dictated By: Norman Concepcion DO 12/17/221725 Signed By: 12/17/221728 Normal [facility] MM diagnostic mammo BI w/CAD on 12-10-2022 MM diagnostic mammo BI w/CAD [facility] [place] [address] Ultrasound Report Signed Patient: Talha Gonzalez MR#: [id number] : 1985 Acct:[id number] Age/Sex: 37 / F ADM Date: 12/10/22 Loc: [place] Room: Type: [facility] CLI Attending Dr: Amilcar Still Ordering Provider: Amilcar Still DO Date of Service: 12/10/22 MM/MM diagnostic mammo BI w/CAD: SEE ORDER ([id number]) US/US breast LT complete: SEE ORDER Copies [...] grounds. Impression dictated by: Martin Conn Jr., D.OJorge12/10/2022 8:46 AM Dictation Location: [facility] Tech: Jing Garciasa Sampson Transcribed By: RAJ 12/10/22845 Dictated By: Martin Conn Jr DO 12/10/2244 Signed By: 12/10/22845 Normal [facility] OCC BLD IMMUNO SCREENon 05-09 OCCULT BLOOD Negative Normal NEGATIVE [facility] Comment on above: Performed By: #### H EPBSRF #### [facility] [address] [place] [address] Dr. Yanely Nuñez FERRITINon 05-28-2022 Ferritin [Mass/Vol] 5.0 ng/mL Critically low 6.2-137.0 [facility] Comment on above: Performed By: #### I NICHOLE VITB12, FERR #### [facility] [address] [place] [address] Dr. Yanely Nuñez IRONon 05-28-2022 Iron [Mass/Vol] 14.0 ug/dL Critically low 50.0-170.0 [facility] Comment on above: Performed By: #### I NICHOLE VITB12, FERR #### [facility] [address] [place] [address] Dr. Yanely Nuñez VITAMIN B12on 05-28-2022 Cobalamin (Vitamin B12) [Mass/Vol] 929.0 pg/mL Normal 193.0-986.0 [facility] Comment on above: Performed By: #### I MICHEL VARELA2, FERR #### [facility] [address] [place] [address] Dr. Yanely Nuñez CBC AUTO DIFFon 05-27-2022 BASO # 0.0 103/ul Normal 0.0-0.1 [facility] Comment on above: Performed By: #### C BC #### [facility] [address] [place] [address] Dr. Yanely Nuñez Basophils/100 WBC (Bld) 0.1 % Critically low 0.2-2.0 [facility] Comment on above: Performed By: #### C BC #### [facility] [address] [place] [address] Dr. Yanely Nuñez EO # 0.1 103/ul Normal 0.0-0.7 [facility] Comment on above: Performed By: #### C BC #### [facility] [address] [place] [address] Dr. Yanely Nuñez Eosinophils/100 WBC (Bld) 2.0 % Normal 0.9-7.0 [facility] Comment on above: Performed By: #### C BC #### [facility] [address] [place] [address] Dr. Yanely Nuñez Erythrocyte distribution width (RBC) [Ratio] 17.1 % Critically high 11.0-15.0 [facility] Comment on above: Performed By: #### C BC #### [facility] [address] [place] [address] Dr. Yanely uNñez Hematocrit (Bld) [Volume fraction] 32.1 % Critically low 36.0-48.0 [facility] Comment on above: Performed By: #### C BC #### [facility] [address] [place] [address] Dr. Yanely Nuñez Hemoglobin (Bld) [Mass/Vol] 9.3 g/dL Critically low 12.0-16.0 [facility] Comment on above: Performed By: #### C BC #### [facility] [address] [place] [address] Dr. Yanely Nuñez IG # 0.02 10e3/ul Normal 0.00-0.03 [facility] Comment on above: Performed By: #### C BC #### [facility] [address] [place] [address] Dr. Yanely Nuñez IG % 0.3 % Normal 0.0-0.5 [facility] Comment on above: Performed By: #### C BC #### [facility] [address] [place] [address] Dr. Yanely Nuñez LYMPH # 1.5 103/ul Normal 1.2-3.8 [facility] Comment on above: Performed By: #### C BC #### [facility] [address] [place] [address] Dr. Yanely Nuñez Lymphocytes/100 WBC (Bld) 22.5 % Normal 20.5-60.0 [facility] Comment on above: Performed By: #### C BC #### [facility] [address] [place] [address] Dr. Yanely Nuñez MANUAL DIFF REQ NO Normal [facility] Comment on above: Performed By: #### C BC #### [facility] [address] [place] [address] Dr. Yanely Nuñez MCH (RBC) [Entitic mass] 20.3 pg Critically low 26.7-34.0 [facility] Comment on above: Performed By: #### C BC #### [facility] [address] [place] [address] [address] Yanely Nuñez MCHC (RBC) [Mass/Vol] 29.0 g/dL Critically low 29.9-35.2 [facility] Comment on above: Performed By: #### C BC #### [facility] [address] [place] [address] [address] Yanely Nuñez MCV (RBC) [Entitic vol] 70.1 fL Critically low 81.0-99.0 [facility] Comment on above: Performed By: #### C BC #### [facility] [address] [place] [address] [address] Yanely Nuñez MONO # 0.5 103/ul Normal 0.3-0.8 [facility] Comment on above: Performed By: #### C BC #### [facility] [address] [place] [address] [address] Yanely Nuñez Monocytes/100 WBC (Bld) 7.0 % Normal 1.7-12.0 [facility] Comment on above: Performed By: #### C BC #### [facility] [address] [place] [address] [address] Yanely Nuñez NEUT # 4.7 103/ul Normal 1.4-6.5 [facility] Comment on above: Performed By: #### C BC #### [facility] [address] [place] [address] [address] Yanely Nuñez Neutrophils/100 WBC (Bld) 68.1 % Normal 43.0-75.0 [facility] Comment on above: Performed By: #### C BC #### [facility] [address] [place] [address] [address] Yanely Nuñez Platelet mean volume (Bld) [Entitic vol] 9.9 fL Normal 9.5-13.5 [facility] Comment on above: Performed By: #### C BC #### [facility] [address] [place] [address] [address] Yanely Nuñez PLT 488 103/ul Critically high 150-450 [facility] Comment on above: Performed By: #### C BC #### [facility] [address] [place] [address] Dr. Yanely Nuñez RBC 4.58 106/ul Normal 4.20-5.40 [facility] Comment on above: Performed By: #### C BC #### [facility] [address] [place] [address] [address] Yanely Nuñez WBC 6.9 103/ul Normal 4.0-11.0 [facility] Comment on above: Performed By: #### C BC #### [facility] [address] [place] [address] Dr. Yanely Nuñez GLYCOHEMOGLOBIN A1Con 2022 ADA RECOMMENDATION SEE BELOW Normal [facility] Comment on above: Result Comment: ADA RECOMMENDED LIMIT 4.0 - 6.0 ADA THERAPEUTIC TARGET < 7.0 ACTION SUGGESTED > 7.0 Performed By: #### A 1C #### [facility] [address] [place] [address] Dr. Yanely Nuñez Glucose [Mass/Vol] 114 mg/dL Normal [facility] Comment on above: Performed By: #### A 1C #### [facility] [address] [place] [address] Dr. Yanely Nuñez HbA1c (Bld) [Mass fraction] 5.6 % Normal 4.5-6.2 [facility] Comment on above: Performed By: #### A 1C #### [facility] [address] [place] [address] Dr. Yanely Nuñez LIPID PROFILEon 05-27-2022 CHOL-HDL RATIO NORM SEE BELOW Normal [facility] Comment on above: Result Comment: 3.3 - 4.4 LOW RISK 4.4 - 7.1 AVERAGE RISK 7.1 - 11.0 MODERATE RISK >11.0 HIGH RISK Performed By: #### C MP, LIPID, TSH #### [facility] [address] [place] [address] Dr. Yanely Nuñez Cholesterol [Mass/Vol] 207 mg/dL Critically high <=200 [facility] Comment on above: Performed By: #### C MP, LIPID, TSH #### [facility] [address] [place] [address] [address] Yanely Nuñez Cholesterol in HDL [Mass/Vol] 54 mg/dL Normal 40-60 [facility] Comment on above: Performed By: #### C MP, LIPID, TSH #### [facility] [address] [place] [address] [address] Yanely Nuñez Cholesterol in LDL [Mass/Vol] 141.0 mg/dL Normal [facility] Comment on above: Performed By: #### C MP, LIPID, TSH #### [facility] [address] [place] [address] [address] Yanely Nuñez Cholesterol.total/Ch olesterol in HDL [Mass ratio] 3.8 {ratio} Normal [facility] Comment on above: Performed By: #### C MP, LIPID, TSH #### [facility] [address] [place] [address] [address] Yanely Nuñez HDL NORMAL > or = 60 mg/dl - LO W CARDIOVASCULAR RISK <40 mg/dl - HIGH CARDIOVASCULAR RISK Normal [facility] Comment on above: Performed By: #### C MP, LIPID, TSH #### [facility] [address] [place] [address] [address] Yanely Nuñez LDL CALC NORMAL SEE BELOW Normal [facility] Comment on above: Result Comment: <100 mg/dl OPTIMAL 100 - 129 mg/dl NEAR OR ABOVE OPTIMAL 130 - 159 mg/dl BORDERLINE HIGH 160 - 189 mg/dl HIGH >190 mg/dl VERY HIGH Performed By: #### C MP, LIPID, TSH #### [facility] [address] [place] [address] [address] Yanely Nuñez Triglyceride [Mass/Vol] 60 mg/dL Normal <=[address] [facility] Comment on above: Performed By: #### C MP, LIPID, TSH #### [facility] [address] [place] [address] [address] Yanely Nuñez VLDL CALC 12.0 mg/dL Normal [facility] Comment on above: Performed By: #### C MP, LIPID, TSH #### [facility] [address] [place] [address] [address] Yanely Nuñez PROF 14(COMP METB)on 023 Albumin [Mass/Vol] 4.0 g/dL Normal 3.4-5.0 [facility] Comment on above: Performed By: #### C MP, LIPID, TSH #### [facility] [address] [place] [address] [address] Yanely Nuñez Albumin/Globulin [Mass ratio] 1.0 {ratio} Normal [facility] Comment on above: Performed By: #### C MP, LIPID, TSH #### [facility] [address] [place] [address] [address] Yanely Nuñez ALP [Catalytic activity/Vol] 57 U/L Normal 46-116 [facility] Comment on above: Performed By: #### C MP, LIPID, TSH #### [facility] [address] [place] [address] [address] Yanely Nuñez ALT [Catalytic activity/Vol] 111 U/L Critically high 14-59 [facility] Comment on above: Performed By: #### C MP, LIPID, TSH #### [facility] [address] [place] [address] [address] Yanely Nuñez Anion gap [Moles/Vol] 13.1 mmol/L Normal [facility] Comment on above: Performed By: #### C MP, LIPID, TSH #### [facility] [address] [place] [address] [address] Yanely Nuñez AST [Catalytic activity/Vol] 34 U/L Normal 15-37 [facility] Comment on above: Performed By: #### C MP, LIPID, TSH #### [facility] [address] [place] [address] [address] Yanely Nuñez Bilirubin [Mass/Vol] 0.4 mg/dL Normal 0.2-1.0 [facility] Comment on above: Performed By: #### C MP, LIPID, TSH #### [facility] [address] [place] [address] [address] Yanely Nuñez Calcium [Mass/Vol] 9.5 mg/dL Normal 8.5-10.1 [facility] Comment on above: Performed By: #### C MP, LIPID, TSH #### [facility] [address] [place] [address] [address] Yanely Nuñez Chloride [Moles/Vol] 104 mmol/L Normal 98-[address] [facility] Comment on above: Performed By: #### C MP, LIPID, TSH #### [facility] [address] [place] [address] [address] Yanely Nuñez CO2 [Moles/Vol] 27.2 mmol/L Normal 21.0-32.0 [facility] Comment on above: Performed By: #### C MP, LIPID, TSH #### [facility] [address] [place] [address] [address] Yanely Nuñez Creatinine [Mass/Vol] 0.76 mg/dL Normal 0.55-1.02 [facility] Comment on above: Performed By: #### C MP, LIPID, TSH #### [facility] [address] [place] [address] Dr. Yanely Nuñez EGFR-AF CITIZEN [place] >60 Normal >=60 [facility] Comment on above: Performed By: #### C MP, LIPID, TSH #### [facility] [address] [place] [address] Dr. Yanely Nuñez EGFR-NON AF CITIZEN OF [place] >60 Normal >=60 [facility] Comment on above: Performed By: #### C MP, LIPID, TSH #### [facility] [address] [place] [address] Dr. Yanely Nuñez Globulin (S) [Mass/Vol] 4.0 g/dL Normal [facility] Comment on above: Performed By: #### C MP, LIPID, TSH #### [facility] [address] [place] [address] Dr. Yanely Nuñez Glucose [Mass/Vol] 86 mg/dL Normal 74-106 [facility] Comment on above: Performed By: #### C MP, LIPID, TSH #### [facility] [address] [place] [address] Dr. Yanely Nuñez Potassium [Moles/Vol] 4.3 mmol/L Normal 3.5-5.[address] [facility] Comment on above: Performed By: #### C MP, LIPID, TSH #### [facility] [address] [place] [address] [address] Yanely Nuñez Protein [Mass/Vol] 8.0 g/dL Normal 6.4-8.2 [facility] Comment on above: Performed By: #### C MP, LIPID, TSH #### [facility] [address] [place] [address] Dr. Yanely Nuñez Sodium [Moles/Vol] 140 mmol/L Normal 136-145 [facility] Comment on above: Performed By: #### C MP, LIPID, TSH #### [facility] [address] [place] [address] Dr. Yanely Nuñez Urea nitrogen [Mass/Vol] 13.0 mg/dL Normal 7.0-18.0 [facility] Comment on above: Performed By: #### C MP, LIPID, TSH #### [facility] [address] [place] [address] Dr. Yanely Nuñez Urea nitrogen/Creatinine [Mass ratio] 17.1 mg/mg Normal [facility] Comment on above: Performed By: #### C MP, LIPID, TSH #### [facility] [address] [place] [address] Dr. Yanely Nuñez TSHon 05-27-2022 TSH 0.862 uIU/mL Normal 0.358-3.740 [facility] Comment on above: Performed By: #### C MP, LIPID, TSH #### [facility] [address] [place] [address] Dr. Yanely Nuñez QUANTIFERON TB GOLD PLUSon 1 QuantiFERON Criteria Comment Normal [facility] Comment on above: Result Comment: Leoncio tiFERON-TB [...] test. Performed By: #### H EPBSRF #### [facility] [address] [place] [address] Dr. Yanely Nuñez QuantiFERON Incubation Incubation performed. Normal [facility] Comment on above: Performed By: #### H EPBSRF #### [facility] [address] [place] [address] Dr. Yanely Nuñez QuantiFERON Mitogen Value >10.[address] [facility] Comment on above: Performed By: #### H EPBSRF #### [facility] [address] [place] [address] [address] Yanely Nuñez QuantiFERON Nil Value 0.03 IU/mL Normal [facility] Comment on above: Performed By: #### H EPBSRF #### [facility] [address] [place] [address] Dr. Yanely Nuñez QuantiFERON TB1 Ag Value 0.04 IU/mL Normal [facility] Comment on above: Performed By: #### H EPBSRF #### [facility] [address] [place] [address] Dr. Yanely Nuñez QuantiFERON TB2 Ag Value 0.03 IU/mL Normal [facility] Comment on above: Performed By: #### H EPBSRF #### [facility] [address] [place] [address] Dr. Yanely Nuñez QuantiFERON-TB Gold Plus Negative Normal Negative [facility] Comment on above: Result Comment: No r esponse to M tuberculosis antigens detected. Infection with M tuberculosis is unlikely, but high risk individuals should be considered for additional testing (ATS/IDSA/CDC Clinical Practice Guidelines, 2017). The reference range is an Antigen minus Nil result of <0.35 IU/mL. Chemiluminescence immunoassay methodology Performed By: #### H EPBSRF #### [facility] [address] [place] [address] Dr. Yanely Nuñez HEPATITIS B SURFACE ANTIBODY , QUANTon 02-05-2022 Hepatitis B Surf AB Quant >1000.0 Normal Immunity>9.9 [facility] Comment on above: Result Comment: Stat us of Immunity Anti-HBs Level Inconsistent with Immunity 0.0 - 9.9 Consistent with Immunity >9.9 Performed By: #### H EPBSRF #### [facility] [address] [place] [address] Dr. Yaneyl Nuñez MMR IMMUNITYon 02-05-2022 Mumps Abs, IgG 56.4 AU/mL Normal Immune >10.9 [facility] Comment on above: Result Comment: Nega tive <9.0 Equivocal 9.0 - 10.9 Positive >10.9 A positive result generally indicates past exposure to Mumps virus or previous vaccination. Performed By: #### H EPBSRF #### [facility] [address] [place] [address] Dr. Yanely Nuñez Rubella Antibodies, IgG 2.90 index Normal Immune >0.99 [facility] Comment on above: Result Comment: Non- immune <0.90 Equivocal 0.90 - 0.99 Immune >0.99 Performed By: #### H EPBSRF #### [facility] [address] [place] [address] Dr. Yanely Nuñez Rubeola Ab, IgG 183.0 AU/mL Normal Immune >16.4 [facility] Comment on above: Result Comment: Nega tive <13.5 Equivocal 13.5 - 16.4 Positive >16.4 Presence of antibodies to Rubeola is presumptive evidence of immunity except when acute infection is suspected. Performed By: #### H EPBSRF #### [facility] [address] [place] [address] Dr. Yanely Nuñez VARICELLA IGG ABon Varicella Zoster IgG 483 index Normal Immune >165 [facility] Comment on above: Result Comment: Nega tive <135 Equivocal 135 - 165 Positive >165 A positive result generally indicates exposure to the pathogen or administration of specific immunoglobulins, but it is not indication of active infection or stage of disease. Performed By: #### H EPBSRF #### [facility] [address] [place] [address] Dr. Yanely Nuñez PAP ACOG PANEL 2: 30 to 65on 11-25-2021 . . Normal [facility] Comment on above: Result Comment: Perf ormed at: WB Performed By: #### [id number] #### [facility] [address] [place] [address] Dr. Yanely Nuñez Age Gdln ACOG Testing 30-[address] [facility] Comment on above: Performed By: #### [id number] #### [facility] [address] [place] [address] Dr. Yanely Nuñez DIAGNOSIS: Comment Normal [facility] Comment on above: Result Comment: NEGA TIVE FOR INTRAEPITHELIAL LESION OR MALIGNANCY. Performed at: WB Performed By: #### [id number] #### [facility] [address] [place] [address] Dr. Yanely Nuñez HPV Aptima Negative Normal Negative [facility] Comment on above: Result Comment: This nucleic acid amplification test detects fourteen high-risk HPV types (16,18,31,33,35,39,45,51,52,56,58,59,66,68) without differentiation. Performed at: =G Performed By: #### [id number] #### [facility] [address] [place] [address] Dr. Yanely Nuñez Methodology: Comment Normal [facility] Comment on above: Result Comment: This liquid based ThinPrep(R) pap test was screened with the use of an image guided system. Performed at: WB Performed By: #### [id number] #### [facility] [address] [place] [address] Dr. Yanely Nuñez Note: Comment Normal [facility] Comment on above: Result Comment: The Pap smear is a screening test designed to aid in the detection of premalignant and malignant conditions of the uterine cervix. It is not a diagnostic procedure and should not be used as the sole means of detecting cervical cancer. Both false-positive and false-negative reports do occur. . Performed at: WB Performed By: #### [id number] #### [facility] [address] [place] [address] Dr. Yanely Nuñez Performed by: Comment Normal [facility] Comment on above: Result Comment: Darlin Cline, Vacation Planner (ASCP) Performed at: WB Performed By: #### [id number] #### [facility] [address] [address] [address] Yanely Nuñez Specimen adequacy: Comment Normal [facility] Comment on above: Result Comment: Sati sfactory for evaluation. Endocervical and/or squamous metaplastic cells (endocervical component) are present. Performed at: WB Performed By: #### [id number] #### [facility] [address] [address] [address] Yanely Nuñez Encounters Encounter Date Encounter Type Care Provider Facility Start: 11-07-2023 End: 11-07-2023 ambulatory AMILCAR GUY Not Available Start: 11-07-2023 End: 11-07-2023 Departed Referred Danii Daly Work Phone: [facility] Start: 01-26-2023 End: 01-26-2023 ambulatory AMILCAR GUY Not Available Start: 12-17-2022 End: 12-17-2022 Patient encounter procedure Danii Daly Work Phone: [facility] Work Phone: Start: 12-17-2022 End: 12-17-2022 ambulatory Danii Daly Work Phone: [facility] Work Phone: Start: 12-10-2022 End: 12-10-2022 Patient encounter procedure Danii Daly Work Phone: [facility] Work Phone: Start: 12-10-2022 End: 12-10-2022 ambulatory Danii Daly Work Phone: [facility] Work Phone: Start: 05-31-2022 Encounter for genera l adult medical examination without abnormal findings NAYELY DALY [facility] Start: 05-30-2022 End: 05-30-2022 ambulatory NAYELY DALY Facility:[facility] Start: 05-28-2022 End: 05-29-2022 ambulatory NAYELY DALY Facility:[facility] Start: 05-27-2022 End: 05-28-2022 ambulatory NAYELY DALY Facility:[facility] Start: 05-27-2022 End: 05-28-2022 Encounter for general adult medical examination without abnormal findings NAYELY DALY Facility:[facility] Start: 02-03-2022 End: 02-04-2022 ambulatory PHONG OSEI Facility:[facility] Start: 11-18-2021 End: 11-18-2021 ambulatory AMILCAR STILL Facility:[facility] Procedures Date Procedure Procedure Detail Performing Clinician Start: 12-17-2022 Pelvic echography Danii Daly Work Phone: Start: 12-17-2022 Transvaginal echography Danii Daly Work Phone: Start: 12-10-2022 Bilateral mammography L evelyn Daly Work Phone: Payers Date Payer Category Payer Unknown [id number] 2.16.84 [id number] 1985 Unknown [id number] 2.16.84 [id number] 1985 Unknown [id number] 2.16.84 [id number] 1985 Unknown [id number] 2.16.84 [id number] 1985 Unknown [id number] 2.16.84 [id number] 1985 Unknown [id number] 2.16.840 [id number] 1959 Private Health Insurance [id number] 1959 Private Health Insurance [id number] 1959 Self-pay Unknown [id number] 2.16.84 [id number] Unknown [id number] 2.16.8 [id number] Unknown [id number] 2.16.8 [id number] Unknown [id number] 2.16.8 [id number] Social History Date Type Detail [facility] Work Phone: Start: 1985 Sex Assigned At Female F [facility] Evaluation note Note Date & Type Note Facility Evaluation note No assessment information availa ble [facility] Work Phone: Summary Purpose Family History No [...] DATE CREATED AUTHOR AUTHOR'S ORGANIZ ATION 11/08/2023 [facility] EPIC DATE CREATED AUTHOR AUTHOR'S ORGANIZ ATION 11/12/2023 [facility] Care Teams (unrecognized sec tion [...] BE BASED ON THE PRIMARY CLINICAL RECORDS. [facility] [employer] [facility] provides no warranty or guarantee of the accuracy or completeness of information in this document.
[2023-11-14 11:58] LABS: Basophils Percent Auto 0.3 % (0.2-2.0); Eosinophils Absolute Auto 0.3 10^3/uL (0.0-0.7); Eosinophils Percent Auto 4.5 % (0.9-7.0); Hematocrit 44.5 % (36.0-48.0); Hemoglobin 14.7 g/dL (12.0-16.0); Immature Granulocytes Abs Auto 0.02 10^3/uL (0.00-0.03); Immature Granulocytes Pct Auto 0.3 % (0.0-0.5); Lymphocytes Absolute Auto 1.9 10^3/uL (1.2-3.8); Lymphocytes Percent Auto 27.5 % (20.5-60.0); Mean Corpuscular Hemoglobin 29.3 pg (26.7-34.0); Mean Corpuscular Volume 88.6 fL (81.0-99.0); Mean Platelet Volume 9.6 fL (9.5-13.5); Monocytes Absolute Auto 0.5 10^3/uL (0.3-0.8); Monocytes Percent Auto 6.8 % (1.7-12.0); Neutrophils Absolute Auto 4.3 10^3/uL (1.4-6.5); Neutrophils Percent Auto 60.6 % (43.0-75.0); Platelet Count 327 10^3/uL (150-450); Red Blood Count 5.02 10^6/uL (4.20-5.40); Red Cell Distribution Width 12.6 % (11.0-15.0); White Blood Count 7.1 10^3/uL (4.0-11.0)
[2023-11-14 12:30] LABS: INR 0.98; Partial Thromboplastin Time 31.3 sec (22.3-36.2); Prothrombin Time 10.4 sec (9.0-11.6)
[2023-11-14 12:43] LABS: Alanine Aminotransferase 39 U/L (14-59); Albumin Globulin Ratio 1.2; Albumin Level 4.4 g/dL (3.4-5.0); Alkaline Phosphatase 61 U/L (46-116); Anion Gap 14.2; Aspartate Amino Transferase 22 U/L (15-37); BUN Creatinine Ratio 12.9; Bilirubin Direct 0.1 mg/dL (0.0-0.2); Bilirubin Total 0.3 mg/dL (0.2-1.0); Calcium 9.9 mg/dL (8.5-10.1); Carbon Dioxide 26.6 mmol/L (21.0-32.0); Chloride 101 mmol/L (98-107); Estimated GFR (African America >60 (>=60 mL/min/1.73m^2); Estimated GFR (Non-African Ame >60 (>=60 mL/min/1.73m^2); Globulin 3.7 g/dL; Glucose 105 mg/dL (74-106); Potassium 3.8 mmol/L (3.5-5.1); Sodium 138 mmol/L (136-145); Total Protein 8.1 g/dL (6.4-8.2)
== END 2023-11-14 11:10 | disposition home or self-care (01) ==
LOC: PST 11:11
PROVIDERS: PCP Nurse Practitioner; Visit Provider Obstetrics & Gynecology
DX: Z01.812 Encounter for preprocedural laboratory examination (principal); N92.0 Excessive and frequent menstruation with regular cycle; R10.2 Pelvic and perineal pain; N94.6 Dysmenorrhea, unspecified; N94.10 Unspecified dyspareunia
CPT/HCPCS: 80048; 80076; 85025; 85610; 85730; 86850; 86900; 86901

== ENCOUNTER 2023-12-14 16:03 | Outpatient (OUT) | payer OTHER, SELFPAY ==
--- OUTSIDE RECORDS SUMMARY | 2023-12-14 16:11 | XMS_ITS | CCD ---
Author Organization [facility] Care Team Providers Care Heater Room Helper Name Role Phone PHONG OSEI Attending Unavailable PHONG OSEI Consulting Unavailable PHONG OSEI Admitting Unavailable REQUEST, NONE LISTED Primary Care Unavaila ble AICHHOLZ, CAMPAIGN ANALYST DANII Admitting Unavailable AICHHOLZ, CAMPAIGN ANALYST DANII Attending Unavailable AICHHOLZ, CAMPAIGN ANALYST DANII Consulting Unavailable AICHHOLZ, CAMPAIGN ANALYST DANII Primary Care Unavailable AICHHOLZ, CAMPAIGN ANALYST DANII Admitting Unavailable AICHHOLZ, CAMPAIGN ANALYST DANII Attending Unavailable AICHHOLZ, CAMPAIGN ANALYST DANII Consulting Unavailable AICHHOLZ, CAMPAIGN ANALYST DANII Primary Care Unavailable AICHHOLZ, CAMPAIGN ANALYST DANII Attending Unavailable AICHHOLZ, CAMPAIGN ANALYST DANII Consulting Unavailable AICHHOLZ, CAMPAIGN ANALYST DANII Primary Care Unavailable AICHHOLZ, CAMPAIGN ANALYST DANII Admitting Unavailable AMILCAR STILL Attending Unavailable AMILCAR STILL Consulting Unavailable AMILCAR STILL Admitting Unavailable REQUEST, NONE LISTED Primary Care Unavaila ble Amilcar Still Attending Provider Danii Daly Primary Care Provider Danii Daly Referring Provider [phone] Amilcar Still Attending Provider Danii Daly Primary Care Provider [phone] Danii Daly Referring Provider Danii Daly Primary Care Provider DO Amilcar Still Attending Provider Amilcar Still Attending Unavailable Danii Daly Primary Care Unavailable Amilcar Still Admitting Unavailable Amilcar Still Attending Unavailable Danii Daly Primary Care Unavailable Amilcar Still Admitting Unavailable Amilcar Still Admitting Unavailable Amilcar Still Attending Unavailable Danii Daly Primary Care Unavailable Danii Daly Referring Unavailable Unavailable Primary Care Provider Unavailabl e AMILCAR STILL Attending Unavailable DANII DALY Attending Unavailable AMILCAR STILL Attending Unavailable John Alicia MD Primary Care Provider Addy PETIT, Danii Unavailable Medications Current Medications Medication Drug Class(es) Dates Sig (Normalized) Sig (Original) [id number] 200 actuat albuterol 0.09 mg/actuat metered dose inhaler (2 sources) beta2-Adrenergic Agonist Start: 11-21-2023 End: 12-21-2023 take 2 puff(s) by inhalation every six hours for wheezing albuterol HFA 90 mcg/act inhaler Indications: Acute bronchitis due to other specified organisms Inhale 2 puffs every 6 (six) hours if needed for wheezing or shortness of breath 18 g 11/21/2023 12/21/2023 Active amoxicillin 875 mg / clavulanate 125 mg oral tablet (2 sources) Penicillin-class Antibacterial Start: 11-21-2023 End: 12-01-2023 take 1 tablet by mouth in the morning amoxicillin-clavula pamela (Augmentin) 875-125 MG tablet Indications: Acute bronchitis due to other specified organisms Take 1 tablet (875 mg) by mouth in the morning and 1 tablet (875 mg) before bedtime. Do all this for 10 days. TAKE WITH FOOD. 20 tablet 11/21/2023 12/01/2023 Active ascorbic acid 250 mg chewable tablet (4 sources) Vitamin C ascorbic acid (Vitamin C) 250 MG chewable tablet Chew Active benzonatate 200 mg oral capsule (2 sources) Non-narcotic Antitussive Start: 11-21-2023 End: 11-28-2023 take 1 capsule by mouth three times daily as needed for cough benzonatate (Tessalon) 200 MG capsule Indications: Acute bronchitis due to other specified organisms Take 1 capsule (200 mg) by mouth 3 (three) times a day as needed for cough for up to 7 days Take with glass of water Do not crush or chew. 21 capsule 11/21/2023 11/28/2023 Active cholecalciferol 0.125 mg oral capsule (4 sources) Vitamin D cholecalciferol (Vitamin D-3) 125 MCG (5000 UT) capsule Active clobetasol propionate 0.5 mg/ml topical cream (2 sources) Corticosteroid Start: 11-19-2023 clobetasol (Temovate) 0.05 % cream 11/19/2023 Active ferrous sulfate 325 mg oral tablet (4 sources) Start: 02-08-2023 End: 02-08-2024 take 1 tablet by mouth in the morning ferrous sulfate (FerrouSul) 325 (65 Fe) MG tablet Indications: Iron deficiency anemia due to chronic blood loss Take 1 tablet (325 mg) by mouth in the morning and 1 tablet (325 mg) before bedtime. 60 tablet 11 02/08/2023 02/08/2024 Active loratadine 10 mg oral tablet (4 sources) take 1 tablet by mouth once daily loratadine (Claritin) 10 MG tablet Take 10 mg by mouth Daily Active Multiple Vitamins-Minerals (MULTI ADULT GUMMIES PO) (4 sources) Multiple Vitamins-Minerals (MULTI ADULT GUMMIES PO) Active predniSONE 20 mg oral tablet (2 sources) Start: 11-21-2023 End: 11-26-2023 take 1 tablet by mouth in the morning predniSONE (Deltasone) 20 MG tablet Indications: Acute bronchitis due to other specified organisms Take 1 tablet (20 mg) by mouth in the morning and 1 tablet (20 mg) in the evening. Take before meals. Do all this for 5 days. Take with food. 10 tablet 11/21/2023 11/26/2023 Active Problems Active Problems Problem Classification Problem Date Documented Da te Episodic/Chronic Acute bronchitis (4 sources) Acute infective bronchitis; Translations: [Acute bronchitis due to other specified organisms] Onset: 11-21-2023 11-21-2023 Episodic Deficiency and other anemia (4 sources) Anemia, unspecified; Translations: [ANEMIA UNSPECIFIED] Onset: 05-30-2022 Episodic Deficiency and other anemia (2 sources) Iron deficiency anemia; Translations: [Iron deficiency anemia, unspecified] Onset: 11-21-2023 11-21-2023 Episodic Other female genital disorders (1 source) [...] Test Name Value Interpretation Reference Range Facility ALL CBC WITH AUTO DIFFon BASOPHILS ABSOLUTE AUTO 0.0 [facility] Basophils/100 WBC (Bld) 0.3 % 0.2 - 2.0 % [facility] Eosinophils/100 WBC (Bld) 4.5 % 0.9 - 7.0 % [facility] Erythrocyte distribution width (RBC) [Ratio] 12.6 % 11.0 - 15.0 % [facility] Hematocrit (Bld) [Volume fraction] 44.5 % 36.0 - 48.0 % [facility] Hemoglobin (Bld) [Mass/Vol] 14.7 g/dL 12.0 - 16.0 g/dL [facility] IMMATURE GRANULOCYTES ABS AUTO 0.02 [facility] Immature granulocytes/100 WBC (Bld) 0.3 % 0.0 - 0.5 % [facility] LYMPHOCYTES ABSOLUTE AUTO 1.9 [facility] Lymphocytes/100 WBC (Bld) 27.5 % 20.5 - 60.0 % [facility] MCH (RBC) [Entitic mass] 29.3 pg 26.7 - 34.0 pg [facility] MCHC (RBC) [Mass/Vol] 33.0 g/dL 29.9 - 35.2 g/dL [facility] MCV (RBC) [Entitic vol] 88.6 fL 81.0 - 99.0 fL [facility] MONOCYTES ABSOLUTE AUTO 0.5 [facility] Monocytes/100 WBC (Bld) 6.8 % 1.7 - 12.0 % [facility] NEUTROPHILS ABSOLUTE AUTO 4.3 [facility] Neutrophils/100 WBC (Bld) 60.6 % 43.0 - 75.0 % [facility] Platelet mean volume (Bld) [Entitic vol] 9.6 fL 9.5 - [facility] PLT [address] [facility] RBC 5.02 [facility] WBC 7.1 [facility] 11-07-2023 L Specimen: [id number] Received: 11/08/23 Status: PATIENCE Alfredo Num: [id number] Spec Type: Surgical Subm Dr: Amilcar Still Tissues: A Endometrium - Biopsy (ENDOMETRIAL BX) Procedures: HE/2, Gross/Micro L4 Age/ Patient Sex Location Account Attending Physician Briana Mason 38/F LABELL [id number] Amilcar Still SPEC NUM: [id number] RECD: 11/08/23 STATUS: PATIENCE ALFREDO NUM: [id number] SHARRI: 11/07/23- SUBM DR: Amilcar Still ENTERED: 11/08/[address] [facility] [address]: Estephania,Lab SPEC TYPE: Surgical DEPT: JUAN CARLOS MEEHAN ENTERED BY: [id number] RECV BY: [id number] ORDERED: HE/2, Gross/Micro L4 ORDERED: HE/2, Gross/Micro [...] performed supporting the above interpretation -------- Specimen: [id number] Received: 11/08/23 Status: PATIENCE Alfredo Num: [id number] Spec Type: Surgical Subm Dr: Amilcar Still Tissues: A Endometrium - Biopsy (ENDOMETRIAL BX) Procedures: Allyssa BURGOS/Cora L4 -------- Patient: Briana Mason [id number] (Continued) -------- Specimen: [id number] Received: 11/08/23 (Continued) Signed (signature on file) Javon Nuñez MD 11/10/23 1053 -------- Specimen: [id number] Received: 11/08/23 Status: PATIENCE Alfredo Num: [id number] Spec Type: Surgical Subm Dr: Amilcar Still Tissues: A Endometrium - Biopsy (ENDOMETRIAL BX) Procedures: HE/2Allyssa/Cora L4 -------- Patient: Briana Mason [id number] (Continued) -------- Specimen: [id number] Received: 11/08/23 (Continued) CPT Codes 55171 -------- -------- Specimen: [id number] Received: 11/08/23 Status: PATIENCE Alfredo Num: [id number] Spec Type: Surgical Subm Dr: Amilcar Still Tissues: A Endometrium - Biopsy (ENDOMETRIAL BX) Procedures: Allyssa/Micro L4 -------- Patient: Briana Mason [id number] (Continued) -------- Signed (signature on file) Marcus-Solitario Nuñez MD 11/10/23 1053 Normal [facility] US transvaginalon 12-17-2022 [place] [address] Ultrasound Report Signed Patient: Briana Mason MR#: [id number] : 1985 Acct:[id number] Age/Sex: 37 / F ADM Date: 12/17/22 Loc: Room: Type: [facility] Attending Dr: Amilcar Still Ordering Provider: Amilcar Still DO Date of Service: 12/17/22 US/US transvaginal: N93.9 ([id number]) US/US pelvic complete: N93.9 Copies to: Amilcar [...] Norman Concepcion M.D.12/17/2022 5:29 PM Dictation Location: [place] [address] Tech: Ana Eric Transcribed By: RAJ 12/17/221728 Dictated By: Norman Concepcion DO 12/17/221725 Signed By: 12/17/221728 Normal [facility] MM diagnostic mammo BI w/CAD on 12-10-2022 MM diagnostic mammo BI w/CAD [facility] [place] [address] [place] [address] Ultrasound Report Signed Patient: Briana Mason MR#: [id number] : 1985 Acct:[id number] Age/Sex: 37 / F ADM Date: 12/10/22 Loc: [place] Room: Type: [facility] Attending Dr: Amilcar Still Ordering Provider: Amilcar Still DO Date of Service: 12/10/22 MM/MM diagnostic mammo BI w/CAD: SEE ORDER ([id number]) US/US breast LT complete: SEE ORDER Copies [...] grounds. Impression dictated by: Martin Conn Jr., SharathOJorge12/10/2022 8:46 AM Dictation Location: [facility] Tech: Jing Pham; Kiarra Braden Transcribed By: RAJ 12/10/22845 Dictated By: Martin Conn Jr, DO 12/10/2244 Signed By: 12/10/22845 Normal [facility] OCC BLD IMMUNO SCREENon 05-09 OCCULT BLOOD Negative Normal NEGATIVE [facility] Comment on above: Performed By: #### H EPBSRF #### [facility] [address] [place] [address] Dr. Yanely Nuñez FERRITINon 05-28-2022 Ferritin [Mass/Vol] 5.0 ng/mL Critically low 6.2-137.0 [facility] Comment on above: Performed By: #### I NICHOLE, VITB12, FERR #### [facility] [address] [place] [address] Dr. Yanely Nuñez IRONon 05-28-2022 Iron [Mass/Vol] 14.0 ug/dL Critically low 50.0-170.0 [facility] Comment on above: Performed By: #### I NICHOLE, VITB12, FERR #### [facility] [address] [place] [address] Dr. Yanely Nuñez VITAMIN B12on 05-28-2022 Cobalamin (Vitamin B12) [Mass/Vol] 929.0 pg/mL Normal 193.0-986.0 [facility] Comment on above: Performed By: #### I NICHOLE, VITB12, FERR #### [facility] [address] [place] [address] Dr. Yanely Nuñez CBC AUTO DIFFon 05-27-2022 BASO # 0.0 103/ul Normal 0.0-0.1 [facility] Comment on above: Performed By: #### C BC #### [facility] [address] [place] [address] Dr. Yanely Nuñez Basophils/100 WBC (Bld) 0.1 % Critically low 0.2-2.0 [facility] Comment on above: Performed By: #### C BC #### [facility] [address] [place] [address] Dr. Yanely Nuñez EO # 0.1 103/ul Normal 0.0-0.7 [facility] Comment on above: Performed By: #### C BC #### [facility] [address] [place] [address] Dr. Yanely Nuñez Eosinophils/100 WBC (Bld) 2.0 % Normal 0.9-7.0 [facility] Comment on above: Performed By: #### C BC #### [facility] [address] [place] [address] Dr. Yanely Nuñez Erythrocyte distribution width (RBC) [Ratio] 17.1 % Critically high 11.0-15.0 [facility] Comment on above: Performed By: #### C BC #### [facility] [address] [place] [address] Dr. Yanely Nuñez Hematocrit (Bld) [Volume fraction] 32.1 % Critically low 36.0-48.0 [facility] Comment on above: Performed By: #### C BC #### [facility] [address] [place] [address] Dr. Yanely Nuñez Hemoglobin (Bld) [Mass/Vol] 9.3 g/dL Critically low 12.0-16.0 [facility] Comment on above: Performed By: #### C BC #### [facility] [address] [place] [address] Dr. Yanely Nuñez IG # 0.02 10e3/ul Normal 0.00-0.[address] [facility] Comment on above: Performed By: #### C BC #### [facility] [address] [place] [address] Dr. Yanely Nuñez IG % 0.3 % Normal 0.0-0.5 [facility] Comment on above: Performed By: #### C BC #### [facility] [address] [place] [address] Dr. Yanely Nuñez LYMPH # 1.5 103/ul Normal 1.2-3.[address] [facility] Comment on above: Performed By: #### C BC #### [facility] [address] [place] [address] Dr. Yanely Nuñez Lymphocytes/100 WBC (Bld) 22.5 % Normal 20.5-60.0 [facility] Comment on above: Performed By: #### C BC #### [facility] [address] [place] [address] Dr. Yanely Nuñez MANUAL DIFF REQ NO Normal [facility] Comment on above: Performed By: #### C BC #### [facility] [address] [place] [address] Dr. Yanely Nuñez MCH (RBC) [Entitic mass] 20.3 pg Critically low 26.7-34.0 [facility] Comment on above: Performed By: #### C BC #### [facility] [address] [place] [address] Dr. Yanely Nuñez MCHC (RBC) [Mass/Vol] 29.0 g/dL Critically low 29.9-35.[address] [facility] Comment on above: Performed By: #### C BC #### [facility] [address] [place] [address] Dr. Yanely Nuñez MCV (RBC) [Entitic vol] 70.1 fL Critically low 81.0-99.0 [facility] Comment on above: Performed By: #### C BC #### [facility] [address] [place] [address] Dr. Yanely Nuñez MONO # 0.5 103/ul Normal 0.3-0.8 [facility] Comment on above: Performed By: #### C BC #### [facility] [address] [place] [address] [address] Yanely Nuñez Monocytes/100 WBC (Bld) 7.0 % Normal 1.7-12.0 [facility] Comment on above: Performed By: #### C BC #### [facility] [address] [place] [address] Dr. Yanely Nuñez NEUT # 4.7 103/ul Normal 1.4-6.5 [facility] Comment on above: Performed By: #### C BC #### [facility] [address] [place] [address] Dr. Yanely Nuñez Neutrophils/100 WBC (Bld) 68.1 % Normal 43.0-75.0 [facility] Comment on above: Performed By: #### C BC #### [facility] [address] [place] [address] Dr. Yanely Nuñez Platelet mean volume (Bld) [Entitic vol] 9.9 fL Normal 9.5-13.[address] [facility] Comment on above: Performed By: #### C BC #### [facility] [address] [place] [address] Dr. Yanely Nuñez PLT 488 103/ul Critically high 150-450 [facility] Comment on above: Performed By: #### C BC #### [facility] [address] [place] [address] Dr. Yanely Nuñez RBC 4.58 106/ul Normal 4.20-5.[address] [facility] Comment on above: Performed By: #### C BC #### [facility] [address] [place] [address] Dr. Yanely Nuñez WBC 6.9 103/ul Normal 4.0-11.0 [facility] Comment on above: Performed By: #### C BC #### [facility] [address] [place] [address] Dr. Yanely Nuñez GLYCOHEMOGLOBIN A1Con 2022 ADA RECOMMENDATION SEE BELOW Normal [facility] Comment on above: Result Comment: ADA RECOMMENDED LIMIT 4.0 - 6.0 ADA THERAPEUTIC TARGET < 7.0 ACTION SUGGESTED > 7.0 Performed By: #### A 1C #### [facility] [address] [place] [address] [address] Yanely Nuñez Glucose [Mass/Vol] 114 mg/dL Normal [facility] Comment on above: Performed By: #### A 1C #### [facility] [address] [place] [address] Dr. Yanely Nuñez HbA1c (Bld) [Mass fraction] 5.6 % Normal 4.5-6.2 [facility] Comment on above: Performed By: #### A 1C #### [facility] [address] [place] [address] Dr. Yanely Nuñez LIPID PROFILEon 05-27-2022 CHOL-HDL RATIO NORM SEE BELOW Normal [facility] Comment on above: Result Comment: 3.3 - 4.4 LOW RISK 4.4 - 7.1 AVERAGE RISK 7.1 - 11.0 MODERATE RISK >11.0 HIGH RISK Performed By: #### C MP, LIPID, TSH #### [facility] [address] [place] [address] Dr. Yanely Nuñez Cholesterol [Mass/Vol] 207 mg/dL Critically high <=200 [facility] Comment on above: Performed By: #### C MP, LIPID, TSH #### [facility] [address] [place] [address] Dr. Yanley Nuñez Cholesterol in HDL [Mass/Vol] 54 mg/dL Normal 40-60 [facility] Comment on above: Performed By: #### C MP, LIPID, TSH #### [facility] [address] [place] [address] Dr. Yanely Nuñez Cholesterol in LDL [Mass/Vol] 141.0 mg/dL Normal [facility] Comment on above: Performed By: #### C MP, LIPID, TSH #### [facility] [address] [place] [address] Dr. Yanely Nuñez Cholesterol.total/Ch olesterol in HDL [Mass ratio] 3.8 {ratio} Normal [facility] Comment on above: Performed By: #### C MP, LIPID, TSH #### [facility] [address] [place] [address] Dr. Yanely Nuñez HDL NORMAL > or = 60 mg/dl - LO W CARDIOVASCULAR RISK <40 mg/dl - HIGH CARDIOVASCULAR RISK Normal [facility] Comment on above: Performed By: #### C MP, LIPID, TSH #### [facility] [address] [place] [address] [address] Yanely Nuñez LDL CALC NORMAL SEE BELOW Normal [facility] Comment on above: Result Comment: <100 mg/dl OPTIMAL 100 - 129 mg/dl NEAR OR ABOVE OPTIMAL 130 - 159 mg/dl BORDERLINE HIGH 160 - 189 mg/dl HIGH >190 mg/dl VERY HIGH Performed By: #### C MP, LIPID, TSH #### [facility] [address] [place] [address] [address] Yanely Nuñez Triglyceride [Mass/Vol] 60 mg/dL Normal <=150 [facility] Comment on above: Performed By: #### C MP, LIPID, TSH #### [facility] [address] [place] [address] [address] Yanely Nuñez VLDL CALC 12.0 mg/dL Normal [facility] Comment on above: Performed By: #### C MP, LIPID, TSH #### [facility] [address] [place] [address] [address] Yanely Nuñez PROF 14(COMP METB)on 023 Albumin [Mass/Vol] 4.0 g/dL Normal 3.4-5.0 [facility] Comment on above: Performed By: #### C MP, LIPID, TSH #### [facility] [address] [place] [address] [address] Yanely Nuñez Albumin/Globulin [Mass ratio] 1.0 {ratio} Normal [facility] Comment on above: Performed By: #### C MP, LIPID, TSH #### [facility] [address] [place] [address] [address] Yanely Nuñez ALP [Catalytic activity/Vol] 57 U/L Normal 46-116 [facility] Comment on above: Performed By: #### C MP, LIPID, TSH #### [facility] [address] [place] [address] [address] Yanely Nuñez ALT [Catalytic activity/Vol] 111 U/L Critically high 14-59 [facility] Comment on above: Performed By: #### C MP, LIPID, TSH #### [facility] [address] [place] [address] [address] Yanely Nuñez Anion gap [Moles/Vol] 13.1 mmol/L Normal [facility] Comment on above: Performed By: #### C MP, LIPID, TSH #### [facility] [address] [place] [address] [address] Yanely Nuñez AST [Catalytic activity/Vol] 34 U/L Normal 15-37 [facility] Comment on above: Performed By: #### C MP, LIPID, TSH #### [facility] [address] [place] [address] Dr. Yanely Nuñez Bilirubin [Mass/Vol] 0.4 mg/dL Normal 0.2-1.0 [facility] Comment on above: Performed By: #### C MP, LIPID, TSH #### [facility] [address] [place] [address] Dr. Yanely Nuñez Calcium [Mass/Vol] 9.5 mg/dL Normal 8.5-10.1 [facility] Comment on above: Performed By: #### C MP, LIPID, TSH #### [facility] [address] [place] [address] Dr. Yanely Nuñez Chloride [Moles/Vol] 104 mmol/L Normal 98-107 [facility] Comment on above: Performed By: #### C MP, LIPID, TSH #### [facility] [address] [place] [address] Dr. Yanely Nuñez CO2 [Moles/Vol] 27.2 mmol/L Normal 21.0-32.0 [facility] Comment on above: Performed By: #### C MP, LIPID, TSH #### [facility] [address] [place] [address] Dr. Yanely Nuñez Creatinine [Mass/Vol] 0.76 mg/dL Normal 0.55-1.02 [facility] Comment on above: Performed By: #### C MP, LIPID, TSH #### [facility] [address] [place] [address] Dr. Yanely Nuñez EGFR-AF CITIZEN [place] >60 Normal >=60 [facility] Comment on above: Performed By: #### C MP, LIPID, TSH #### [facility] [address] [place] [address] Dr. Yanely Nuñez EGFR-NON AF CITIZEN [place] >60 Normal >=60 [facility] Comment on above: Performed By: #### C MP, LIPID, TSH #### [facility] [address] [place] [address] Dr. Yanely Nuñez Globulin (S) [Mass/Vol] 4.0 g/dL Normal [facility] Comment on above: Performed By: #### C MP, LIPID, TSH #### [facility] [address] [place] [address] Dr. Yanely Nuñez Glucose [Mass/Vol] 86 mg/dL Normal 74-106 [facility] Comment on above: Performed By: #### C MP, LIPID, TSH #### [facility] [address] [place] [address] Dr. Yanely Nuñez Potassium [Moles/Vol] 4.3 mmol/L Normal 3.5-5.1 [facility] Comment on above: Performed By: #### C MP, LIPID, TSH #### [facility] [address] [place] [address] Dr. Yanely Nuñez Protein [Mass/Vol] 8.0 g/dL Normal 6.4-8.2 [facility] Comment on above: Performed By: #### C MP, LIPID, TSH #### [facility] [address] [place] [address] Dr. Yanely Nuñez Sodium [Moles/Vol] 140 mmol/L Normal 136-145 [facility] Comment on above: Performed By: #### C MP, LIPID, TSH #### [facility] [address] [place] [address] Dr. Yanely Nuñez Urea nitrogen [Mass/Vol] 13.0 mg/dL Normal 7.0-18.0 [facility] Comment on above: Performed By: #### C MP, LIPID, TSH #### [facility] [address] [address] [address] Yanely Nuñez Urea nitrogen/Creatinine [Mass ratio] 17.1 mg/mg Normal [facility] Comment on above: Performed By: #### C MP, LIPID, TSH #### [facility] [address] [place] [address] Dr. Yanely Nuñez TSHon 05-27-2022 TSH 0.862 uIU/mL Normal 0.358-3.740 [facility] Comment on above: Performed By: #### C MP, LIPID, TSH #### [facility] [address] [address] [address] Yanely Nuñez QUANTIFERON TB GOLD PLUSon 1 QuantiFERON Criteria Comment Normal [facility] Comment on above: Result Comment: Leoncio tiFERON-TB [...] test. Performed By: #### H EPBSRF #### [facility] [address] [place] [address] Dr. Yanely Nuñez QuantiFERON Incubation Incubation performed. Normal [facility] Comment on above: Performed By: #### H EPBSRF #### [facility] [address] [place] [address] Dr. Yanely Nuñez QuantiFERON Mitogen Value >10.00 Normal [facility] Comment on above: Performed By: #### H EPBSRF #### [facility] [address] [place] [address] Dr. Yanely Nuñez QuantiFERON Nil Value 0.03 IU/mL Normal [facility] Comment on above: Performed By: #### H EPBSRF #### [facility] [address] [place] [address] Dr. Yanely Nuñez QuantiFERON TB1 Ag Value 0.04 IU/mL Normal [facility] Comment on above: Performed By: #### H EPBSRF #### [facility] [address] [place] [address] Dr. Yanely Nuñez QuantiFERON TB2 Ag Value 0.03 IU/mL Normal [facility] Comment on above: Performed By: #### H EPBSRF #### [facility] [address] [place] [address] Dr. Yanely Nuñez QuantiFERON-TB Gold Plus Negative Normal Negative [facility] Comment on above: Result Comment: No r esponse to M tuberculosis antigens detected. Infection with M tuberculosis is unlikely, but high risk individuals should be considered for additional testing (ATS/IDSA/CDC Clinical Practice Guidelines, 2017). The reference range is an Antigen minus Nil result of <0.35 IU/mL. Chemiluminescence immunoassay methodology Performed By: #### H EPBSRF #### [facility] [address] [place] [address] Dr. Yanely Nuñez HEPATITIS B SURFACE ANTIBODY , QUANTon 02-05-2022 Hepatitis B Surf AB Quant >1000.0 Normal Immunity>9.[address] [facility] Comment on above: Result Comment: Stat us of Immunity Anti-HBs Level Inconsistent with Immunity 0.0 - 9.9 Consistent with Immunity >9.9 Performed By: #### H EPBSRF #### [facility] [address] [place] [address] Dr. Yanely Nuñez MMR IMMUNITYon 02-05-2022 Mumps Abs, IgG 56.4 AU/mL Normal Immune >10.9 [facility] Comment on above: Result Comment: Nega tive <9.0 Equivocal 9.0 - 10.9 Positive >10.9 A positive result generally indicates past exposure to Mumps virus or previous vaccination. Performed By: #### H EPBSRF #### [facility] [address] [place] [address] Dr. Yanely Nuñez Rubella Antibodies, IgG 2.90 index Normal Immune >0.[address] [facility] Comment on above: Result Comment: Non- immune <0.90 Equivocal 0.90 - 0.99 Immune >0.99 Performed By: #### H EPBSRF #### [facility] [address] [place] [address] Dr. Yanely Nuñez Rubeola Ab, IgG 183.0 AU/mL Normal Immune >16.4 [facility] Comment on above: Result Comment: Nega tive <13.5 Equivocal 13.5 - 16.4 Positive >16.4 Presence of antibodies to Rubeola is presumptive evidence of immunity except when acute infection is suspected. Performed By: #### H EPBSRF #### [facility] [address] [place] [address] Dr. Yanely Nuñez VARICELLA IGG ABon 2 Varicella Zoster IgG 483 index Normal Immune >165 [facility] Comment on above: Result Comment: Nega tive <135 Equivocal 135 - 165 Positive >165 A positive result generally indicates exposure to the pathogen or administration of specific immunoglobulins, but it is not indication of active infection or stage of disease. Performed By: #### H EPBSRF #### [facility] [address] [place] [address] Dr. Yanely Nuñez PAP ACOG PANEL 2: 30 to 65on 11-25-2021 . . Normal [facility] Comment on above: Result Comment: Perf ormed at: WB Performed By: #### [id number] #### [facility] [address] [place] [address] Dr. Yanely Nuñez Age Gdln ACOG Testing 30-65 [facility] Comment on above: Performed By: #### [id number] #### [facility] [address] [place] [address] Dr. Yanely Nuñez DIAGNOSIS: Comment Normal [facility] Comment on above: Result Comment: NEGA TIVE FOR INTRAEPITHELIAL LESION OR MALIGNANCY. Performed at: WB Performed By: #### [id number] #### [facility] [address] [place] [address] Dr. Yanely Nuñez HPV Aptima Negative Normal Negative [facility] Comment on above: Result Comment: This nucleic acid amplification test detects fourteen high-risk HPV types (16,18,31,33,35,39,45,51,52,56,58,59,66,68) without differentiation. Performed at: =G Performed By: #### [id number] #### [facility] [address] [place] [address] Dr. Yanely Nuñez Methodology: Comment [facility] Comment on above: Result Comment: This liquid based ThinPrep(R) pap test was screened with the use of an image guided system. Performed at: WB Performed By: #### [id number] #### [facility] [address] [place] [address] Dr. Yanely Nuñez Note: Comment Normal [facility] Comment on above: Result Comment: The Pap smear is a screening test designed to aid in the detection of premalignant and malignant conditions of the uterine cervix. It is not a diagnostic procedure and should not be used as the sole means of detecting cervical cancer. Both false-positive and false-negative reports do occur. . Performed at: WB Performed By: #### [id number] #### [facility] [address] [place] [address] Dr. Yanely Nuñez Performed by: Comment Normal [facility] Comment on above: Result Comment: Darlin Cline, [employer] Teacher (ASCP) Performed at: WB Performed By: #### [id number] #### [facility] [address] [place] [address] Dr. Yanely Nuñez Specimen adequacy: Comment Normal [facility] Comment on above: Result Comment: Sati sfactory for evaluation. Endocervical and/or squamous metaplastic cells (endocervical component) are present. Performed at: WB Performed By: #### [id number] #### [facility] [address] [place] [address] Dr. Yanely Nuñez Vital Signs Date Time Vital Sign Value Performing Clinician Faci lity 11-21-2023 19:00-0400 Body height 162.6 cm Danii Daly CERTIFIED LACTATION EDUCATOR Work Phone: [facility] 11-21-2023 19:00-0400 Body mass index (BMI) [Ratio] 29.9 kg/m2 Danii Daly CERTIFIED LACTATION EDUCATOR Work Phone: [facility] 11-21-2023 19:00-0400 Body temperature 99.7 [degF] Danii Urenaraisaz CERTIFIED LACTATION EDUCATOR Work Phone: [facility] 11-21-2023 19:00-0400 Body weight 79.02 kg Danii Urenaholz CERTIFIED LACTATION EDUCATOR Work Phone: [facility] 11-21-2023 19:00-0400 Diastolic blood pressure 76 mm[Hg] Danii Salmahholz CERTIFIED LACTATION EDUCATOR Work Phone: [facility] 11-21-2023 19:00-0400 Heart rate 110 /min Danii Ayannaholz CERTIFIED LACTATION EDUCATOR Work Phone: [facility] 11-21-2023 19:00-0400 Respiratory rate 19 /min Danii Ayannaholz CERTIFIED LACTATION EDUCATOR Work Phone: [facility] 11-21-2023 19:00-0400 SaO2% (BldA) [Mass fraction] 96 % Danii Ayannaholz CERTIFIED LACTATION EDUCATOR Work Phone: [facility] 11-21-2023 19:00-0400 Systolic blood pressure 132 mm[Hg] Danii Urenaholz CERTIFIED LACTATION EDUCATOR Work Phone: [facility] Encounters Encounter Date Encounter Type Care Provider Facility Start: 11-21-2023 End: 11-21-2023 Office outpatient visit 15 minutes Danii Urenagabby CERTIFIED LACTATION EDUCATOR Work Phone: [facility] Comment on above: Acute bronchitis due to other specified organisms (Primary Dx) Start: 11-21-2023 End: 11-21-2023 ambulatory DANII ADDY Not Available Start: 11-21-2023 End: 11-21-2023 Bamboo flowsheet Danii Veroz CERTIFIED LACTATION EDUCATOR Work Phone: [facility] Start: 11-21-2023 End: 11-21-2023 Bamboo flowsheet Danii Ayannaholz CERTIFIED LACTATION EDUCATOR Work Phone: [facility] Start: 11-14-2023 End: 11-14-2023 Clinisync Result Encounter Generic External Data Provider [facility] Unsolicited Start: 11-14-2023 End: 11-14-2023 Clinisync Result Encounter Generic External Data Provider [facility] Unsolicited Start: 11-07-2023 End: 11-07-2023 ambulatory Danii Valdez Salmatirsogabby Work Phone: [facility] Work Phone: Start: 11-07-2023 End: 11-07-2023 Departed Referred Danii Salmatirsogabby Work Phone: [facility] Start: 01-26-2023 End: 01-26-2023 ambulatory AMILCAR VALDESO Not Available Start: 12-17-2022 End: 12-17-2022 Patient encounter procedure Danii Daly Work Phone: [facility] Work Phone: Start: 12-17-2022 End: 12-17-2022 ambulatory Danii Valdez Salmatirsogabby Work Phone: [facility] Work Phone: Start: 12-10-2022 End: 12-10-2022 Patient encounter procedure Danii Daly Work Phone: [facility] Work Phone: Start: 12-10-2022 End: 12-10-2022 ambulatory Danii Valdez Salmatirsoraisaderick Work Phone: [facility] Work Phone: Start: 05-31-2022 Encounter for genera l adult medical examination without abnormal findings NAYELY DALY [facility] Start: 05-30-2022 End: 05-30-2022 ambulatory CAMPAIGN ANALYST DANII DALY Facility:[facility] Start: 05-28-2022 End: 05-29-2022 ambulatory CAMPAIGN ANALYST DANII DALY Facility:[facility] Start: 05-27-2022 End: 05-28-2022 ambulatory NAYELY DALY Facility:[facility] Start: 05-27-2022 End: 05-28-2022 Encounter for general adult medical examination without abnormal findings CAMPAIGN ANALYST DANII ADDY Facility:[facility] Start: 02-03-2022 End: 02-04-2022 ambulatory PHONG OSEI Facility:[facility] Start: 11-18-2021 End: 11-18-2021 ambulatory AMILCAR STILL Facility:[facility] Procedures Date Procedure Procedure Detail Performing Clinician Start: 11-14-2023 ALL CBC WITH AUTO DIFF Amilcar Cheko DO Work Phone: Start: 12-17-2022 Pelvic echography Danii Urenagabby Work Phone: Start: 12-17-2022 Transvaginal echography Danii Addy Work Phone: Start: 12-10-2022 Bilateral mammography L evleyn Urenagabby Work Phone: Plan of Treatment Date Care Activity Detail Author Start: 11-24-2023 End: 11-24-2023 Patient encounter procedure 11/24/2023 1:00 PM EDT Procedure Visit [facility] Amilcar Still, DO [address] [place] [address] [place] [address] [facility] Start: 11-21-2023 End: 11-21-2023 Patient encounter procedure 11/21/2023 7:00 PM EDT Office Visit [facility] [address] [place] [id number] Danii Daly, DAMASO [address] [place] [address] Arrived [facility] Comment on above: Arrived Start: 10-09-2023 Influenza vaccination Influenza Vacc ine (#1) [facility] Start: 06-23-2015 Screening for malign ant neoplasm of cervix [facility] Start: 2006 Screening for malign ant neoplasm of cervix Pap Smear [facility] Payers Date Payer Category Payer [facility] Care O (unspecified) [id number] 1985 Unknown [id number] 2.16.84 [id number] 1985 Unknown [id number] 2.16.84 [id number] 1985 Unknown [id number] 2.16.84 [id number] 1985 Unknown [id number] 2.16.84 [id number] 1985 Unknown [id number] 1985 Unknown [id number] 1985 Unknown [id number] [id number] 1959 Private Health Insurance [id number] 1959 Private Health Insurance [id number] 1959 Self-pay Unknown [id number] 2.16.84 [id number] Unknown [id number] Unknown [id number] Unknown [id number] Social History Date Type Detail Facility Tobacco smoking stat [facility] Unknown if ever smoked [facility] Work Phone: Start: 1985 Sex Assigned At Female [facility] Tobacco smoking stat [facility] Tobacco smoking consumption unknown [facility] Start: 11-15-2022 Gender identity Identifies as female gender (finding) [facility] Start: 11-15-2022 Sexual orientation Heterosexual (finding) [facility] History of Present illness Narrative 11-21-2023 Danii Daly NP - 11/21/2023 8:01 PM EDKELVIN MULLER - 11/21/2023 7:00 PM EDEunice Daly NP - 11/21/2023 7:00 PM EDT Note Date & Type Note Facility 11-21-2023 History of Presen t illness Narrative Associated Problem(s): Acute bronchitis due to other specified organisms Atb, steroids, inhaler, tessalon Tested neg for covid Fluids, rest, fu if not better Pt started noticing symptoms on th, including cough and cold chills, headaches. Pt has been having barky cough, tightness in the chest, night swets, sob, burning when coughing, pt has crackling when breathing. 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 Briana Mason is a 38 y.o. female presents with chief complaint of No chief complaint on file. HPI: Child had pneumonia about 2 weeks ago, remainder of family ill Child and pt both tested neg for COVID URI This is a new problem. The current episode started in the past 7 days. The problem has been gradually worsening. The maximum temperature recorded prior to her arrival was 100.4 - 100.9 F. Associated symptoms include congestion, coughing, headaches (from cough) and rhinorrhea. Pertinent negatives include no abdominal pain, chest pain, diarrhea, dysuria, ear pain, joint swelling, nausea, neck pain, plugged ear sensation, rash, sinus pain, sneezing, sore throat, swollen glands, vomiting or wheezing. SUBJECTIVE: MEDICATIONS: Current Outpatient Medications Medication Instructions ascorbic acid (Vitamin C) 250 MG chewable tablet Oral cholecalciferol (Vitamin D-3) 125 MCG (5000 UT) capsule ferrous sulfate (FERROUSUL) 325 mg, Oral, 2 times daily loratadine (CLARITIN) 10 mg, Oral, Daily Multiple Vitamins-Minerals (MULTI ADULT GUMMIES PO) ALLERGIES: No Known Allergies REVIEW OF SYMPTOMS: Review of Systems Constitutional: Negative for appetite change, chills and fever. HENT: Positive for congestion and rhinorrhea. Negative for ear pain, sinus pain, sneezing and sore throat. Eyes: Negative for pain, discharge, redness and visual disturbance. Respiratory: Positive for cough. Negative for shortness of breath and wheezing. Cardiovascular: Negative for chest pain, palpitations and leg swelling. Gastrointestinal: Negative for abdominal pain, blood in stool, constipation, diarrhea, nausea and vomiting. Genitourinary: Negative for difficulty urinating, dysuria and frequency. Musculoskeletal: Negative for arthralgias, back pain, joint swelling, myalgias and neck pain. Skin: Negative for rash and wound. Neurological: Positive for headaches (from cough). Negative for dizziness, tremors, seizures and syncope. Psychiatric/Behavioral: Negative for behavioral problems, self-injury and suicidal ideas. The patient is not nervous/anxious. Hematological: Does not bruise/bleed easily. Endocrine: Negative for polydipsia, polyphagia and polyuria. Allergic/Immunologic: Negative for environmental allergies and food allergies. PAST MEDICAL HISTORY Past Medical History: Diagnosis Date Asthma (CMS/HCC) Past Surgical History: Procedure Laterality Date BREAST CYST EXCISION Right SECTION, LOW TRANSVERSE 11/26/2012 SECTION, LOW TRANSVERSE 09/22/2015 SECTION, LOW TRANSVERSE 01/20/2018 DENTAL SURGERY family history includes Cancer in her father, paternal grandfather, and paternal grandmother; Diabetes in her maternal grandfather and maternal grandmother. OBJECTIVE: Visit Vitals BP 132/76 (BP Location: Left arm, Patient Position: Sitting, BP Cuff Size: Adult long) Pulse 110 Temp 99.7 F (Temporal) Resp 19 Ht 5' 4 Wt 174 lb 3.2 oz SpO2 96% BMI 29.90 kg/m BSA 1.89 m Physical Exam Vitals and nursing note reviewed. Constitutional: General: She is not in acute distress. Appearance: Normal appearance. She is ill-appearing (mild). HENT: Head: Normocephalic and atraumatic. Right Ear: Tympanic membrane, ear canal and external ear normal. Left Ear: Tympanic membrane, ear canal and external ear normal. Nose: Congestion present. No rhinorrhea. Mouth/Throat: Mouth: Mucous membranes are moist. Pharynx: No oropharyngeal exudate or posterior oropharyngeal erythema. Eyes: Extraocular Movements: Extraocular movements intact. Conjunctiva/sclera: Conjunctivae normal. Cardiovascular: Rate and Rhythm: Normal rate and regular rhythm. Pulses: Normal pulses. Heart sounds: Normal heart sounds. Pulmonary: Effort: Pulmonary effort is normal. No respiratory distress. Breath sounds: Rhonchi present. Comments: Freq coughing Abdominal: General: Bowel sounds are normal. There is no distension. Palpations: Abdomen is soft. There is no mass. Tenderness: There is no abdominal tenderness. Musculoskeletal: General: Normal range of motion. Cervical back: Normal range of motion and neck supple. Right lower leg: No edema. Left lower leg: No edema. Lymphadenopathy: Cervical: No cervical adenopathy. Skin: General: Skin is warm and dry. Capillary Refill: Capillary refill takes 2 to 3 seconds. Findings: No rash. Neurological: General: No focal deficit present. Mental Status: She is alert and oriented to person, place, and time. Psychiatric: Mood and Affect: Mood normal. Behavior: Behavior normal. Thought Content: Thought content normal. Judgment: Judgment normal. ASSESSMENT AND PLAN: No follow-ups on file. Problem List Items Addressed This Visit Acute bronchitis due to other specified organisms - Primary Atb, steroids, inhaler, tessalon Tested neg for covid Fluids, rest, fu if not better Relevant Medications amoxicillin-clavulanate (Augmentin) 875-125 MG tablet predniSONE (Deltasone) 20 MG tablet albuterol HFA 90 mcg/act inhaler benzonatate (Tessalon) 200 MG capsule documented in this encounter [facility] Evaluation note Note Date & Type Note Facility Evaluation note No assessment information [facility] Work Phone: Evaluation note Note Date & Type Note Facility Evaluation note Diagnosis Acute bronchitis due to other specified organisms- Primary documented in this encounter [facility] Summary Purpose Family History No Family History Records FoundNo Family History Records FoundNo Family History Records Found Advance Directives Advance Directive Response Recorded Date/ Time Advance [...] pital DATE CREATED AUTHOR AUTHOR'S ORGANIZ ATION 11/12/2023 [facility] DATE CREATED AUTHOR AUTHOR'S ORGANIZ ATION 11/23/2023 [facility] d[facility] Special[facility] EPIC Care Teams (unrecognized sec tion and content) [...] November 07, 2023 End: November 07, 2023 Heater Room Helper Relationship Specialty Start Date End Date John Alicia MD [address] [place] [phone] PCP - General Family Medicine 11/21/23 Danii Daly NP [address] [place] [phone] Nurse Practitioner Family Medicine 11/21/23 Heater Room Helper Relationship Specialty Start Date End Date John Alicia MD [address] [place] [phone] PCP - General Family Medicine 11/21/23 Daini Daly NP [address] [place] [phone] Nurse Practitioner Family Medicine 11/21/23 Goals (unrecognized section and content) Goals may [...] BE BASED ON THE PRIMARY CLINICAL RECORDS. [facility]. provides no warranty or guarantee of the accuracy or completeness of information in this document.
== END 2023-12-14 16:04 | disposition home or self-care (01) ==
LOC: LAB 16:03
PROVIDERS: PCP Nurse Practitioner; Visit Provider Obstetrics & Gynecology
DX: Z01.810 Encounter for preprocedural cardiovascular examination (principal); N92.0 Excessive and frequent menstruation with regular cycle; R10.2 Pelvic and perineal pain; N94.6 Dysmenorrhea, unspecified
CPT/HCPCS: 36415; 86850; 86900; 86901

== ENCOUNTER 2023-12-20 11:40 | Inpatient (IN) | payer OTHER, SELFPAY ==
[2023-11-14 11:47] VITALS: BP 135/84; PULSE 84; TEMP 36.3; O2SAT 99; BMI 29.9
[2023-12-20] VITALS (14 sets, daily range): BP systolic 111–148; BP diastolic 57–92; PULSE 67–100; TEMP 36.5–36.8; O2SAT 81–99; BMI 29.6
--- OUTSIDE RECORDS SUMMARY | 2023-12-20 06:14 | XMS_ITS | CCD ---
Author Organization [facility] Care Team Providers Care Shuttlecock Assembler Name Role Phone PHONG OSEI Attending Unavailable PHONG OSEI Consulting Unavailable PHONG OSEI Admitting Unavailable REQUEST, NONE LISTED Primary Care Unavaila ble AICHHOLZ, HAND WOOD SANDER DANII Admitting Unavailable AICHHOLZ, HAND WOOD SANDER DANII Attending Unavailable AICHHOLZ, HAND WOOD SANDER DANII Consulting Unavailable AICHHOLZ, HAND WOOD SANDER DANII Primary Care Unavailable AICHHOLZ, HAND WOOD SANDER DANII Admitting Unavailable AICHHOLZ, HAND WOOD SANDER DANII Attending Unavailable AICHHOLZ, HAND WOOD SANDER DANII Consulting Unavailable AICHHOLZ, HAND WOOD SANDER DANII Primary Care Unavailable AICHHOLZ, HAND WOOD SANDER DANII Attending Unavailable AICHHOLZ, HAND WOOD SANDER DANII Consulting Unavailable AICHHOLZ, HAND WOOD SANDER DANII Primary Care Unavailable AICHHOLZ, HAND WOOD SANDER DAINI Admitting Unavailable AMILCAR STILL Attending Unavailable AMILCAR STILL Consulting Unavailable AMILCAR STILL Admitting Unavailable REQUEST, NONE LISTED Primary Care Unavaila ble Amilcar Still Attending Provider [phone] Danii Daly Primary Care Provider [phone] Danii Daly Referring Provider [phone] Amilcar Still Attending Provider Danii Daly Primary Care Provider Danii Daly Referring Provider Danii Daly Primary [...] Unavailable John Alicia MD Primary Care Provider [phone] Addy PETIT, Danii Unavailable Medications Current Medications Medication Drug Class(es) Dates Sig (Normalized) Sig (Original) [id number] 200 actuat albuterol 0.09 mg/actuat metered dose inhaler (3 sources) beta2-Adrenergic Agonist Start: 11-21-2023 End: 12-21-2023 [...] Active ascorbic acid 250 mg chewable tablet (5 sources) Vitamin C ascorbic acid (Vitamin C) [...] 11/28/2023 Active cholecalciferol 0.125 mg oral capsule (5 sources) Vitamin D cholecalciferol (Vitamin D-3) 125 MCG (5000 UT) capsule Active clobetasol propionate 0.5 mg/ml topical cream (3 sources) Corticosteroid Start: 11-19-2023 clobetasol (Temovate) 0.05 % cream 11/19/2023 Active ferrous sulfate 325 mg oral tablet (5 sources) Start: 02-08-2023 End: 02-08-2024 take 1 tablet by mouth in the morning ferrous sulfate (FerrouSul) 325 (65 Fe) MG tablet Indications: Iron deficiency anemia due to chronic blood loss Take 1 tablet (325 mg) by mouth in the morning and 1 tablet (325 mg) before bedtime. 60 tablet 11 02/08/2023 02/08/2024 Active loratadine 10 mg oral tablet (5 sources) take 1 tablet by mouth once daily loratadine (Claritin) 10 MG tablet Take 10 mg by mouth Daily Active Multiple Vitamins-Minerals (MULTI ADULT GUMMIES PO) (5 sources) Multiple Vitamins-Minerals (MULTI ADULT GUMMIES PO) [...] Date Documented Da te Episodic/Chronic Acute bronchitis (5 sources) Acute infective bronchitis; Translations: [Acute bronchitis due to other specified organisms] Onset: 11-21-2023 11-21-2023 Episodic Deficiency and other anemia (4 sources) Anemia, unspecified; Translations: [ANEMIA UNSPECIFIED] Onset: 05-30-2022 Episodic Deficiency and other anemia (3 sources) Iron deficiency anemia; Translations: [Iron deficiency [...] Name Value Interpretation Reference Range Facility ALL TYPE AND SCREENon 2023 ABO and Rh group Nom (Bld) Blood group O Rh(D) negative [facility] , [facility] ALL CBC WITH AUTO DIFFon BASOPHILS ABSOLUTE AUTO 0.0 [facility] Basophils/100 WBC (Bld) 0.3 % 0.2 - 2.0 % [facility] Eosinophils/100 WBC (Bld) 4.5 % 0.9 - 7.0 % [facility] Erythrocyte distribution width (RBC) [Ratio] 12.6 % 11.0 - 15.0 % [facility] Hematocrit (Bld) [Volume fraction] 44.5 % 36.0 - 48.0 % [facility] Hemoglobin (Bld) [Mass/Vol] 14.7 g/dL 12.0 - 16.0 g/dL [facility] IMMATURE GRANULOCYTES ABS AUTO 0.02 [facility] Immature granulocytes/100 WBC (Bld) 0.3 % 0.0 - 0.5 % [facility] LYMPHOCYTES ABSOLUTE AUTO 1.9 [facility] Lymphocytes/100 WBC (Bld) 27.5 % 20.5 - 60.0 % [facility] MCH (RBC) [Entitic mass] 29.3 pg 26.7 - 34.0 pg [facility] MCHC (RBC) [Mass/Vol] 33.0 g/dL 29.9 - 35.2 g/dL [facility] MCV (RBC) [Entitic vol] 88.6 fL 81.0 - 99.0 fL [facility] MONOCYTES ABSOLUTE AUTO 0.5 [facility] Monocytes/100 WBC (Bld) 6.8 % 1.7 - 12.0 % [facility] NEUTROPHILS ABSOLUTE AUTO 4.3 [facility] Neutrophils/100 WBC (Bld) 60.6 % 43.0 - 75.0 % [facility] Platelet mean volume (Bld) [Entitic vol] 9.6 fL 9.5 - 13.5 fL [facility] EO # 0.3 [facility] PLT 327 [facility] RBC 5.02 [facility] WBC 7.1 [facility] Apollo 11-07-2023 L Specimen: [id number] Received: 11/08/23 Status: PATIENCE Alfredo Num: [id number] Spec Type: Surgical Subm Dr: Amilcar Still Tissues: A Endometrium - Biopsy (ENDOMETRIAL BX) Procedures: HE/2, Gross/Micro L4 Age/ Patient Sex Location Account Attending Physician Briana Mason 38/F LABELL [id number] Amilcar Still SPEC NUM: [id number] RECD: 11/08/23 STATUS: PATIENCE ALFREDO NUM: [id number] SHARRI: 11/07/23- SUBM DR: Amilcar Still ENTERED: 11/08/[address] [facility] [address]: Estephania,Lab SPEC TYPE: Surgical DEPT: JUAN CARLOS MEEHAN ENTERED BY: [id number] RECV BY: [id number] ORDERED: HE/2, Gross/Micro L4 ORDERED: HE/2, Gross/Micro [...] performed supporting the above interpretation -------- Specimen: [id number] Received: 11/08/23 Status: PATIENCE Juni Num: [id number] Spec Type: Surgical Subm Dr: Amilcar Still Tissues: A Endometrium - Biopsy (ENDOMETRIAL BX) Procedures: /2, Allyssa/Micro L4 -------- Patient: Briana Mason [id number] (Continued) -------- Specimen: [id number] Received: 11/08/23 (Continued) Signed (signature on file) Javon Nuñez MD 11/10/23 1053 -------- Specimen: [id number] Received: 11/08/23 Status: PATIENCE Alfredo Num: [id number] Spec Type: Surgical Subm Dr: Amilcar Still Tissues: A Endometrium - Biopsy (ENDOMETRIAL BX) Procedures: HE/2, Gross/Micro L4 -------- Patient: Saad Masonelle Kristy [id number] (Continued) -------- Specimen: [id number] Received: 11/08/23 (Continued) CPT Codes 64642 -------- -------- Specimen: [id number] Received: 11/08/23 Status: PATIENCE Alfredo Num: [id number] Spec Type: Surgical Subm Dr: Amilcar Still Tissues: A Endometrium - Biopsy (ENDOMETRIAL BX) Procedures: HE/2, Gross/Micro L4 -------- Patient: Briana Mason [id number] (Continued) -------- Signed (signature on file) Marcus-Solitario Nuñez MD 11/10/23 1053 Normal [facility] US transvaginalon 12-17-2022 [place] [address] Ultrasound Report Signed Patient: Briana Mason MR#: [id number] : 1985 Acct:[id number] Age/Sex: 37 / F ADM Date: 12/17/22 Loc: Room: Type: [facility] Attending Dr: Amilcar Still Ordering Provider: Amilcar Still DO Date of Service: 12/17/22 US/US transvaginal: N93.9 ([id number]) US/US pelvic complete: N93.9 Copies to: Amilcar [...] Norman Concepcion M.D.12/17/2022 5:29 PM Dictation Location: [place] [address] Tech: Ana Eric Transcribed By: RAJ 12/17/221728 Dictated By: Norman Concepcion DO 12/17/221725 Signed By: 12/17/221728 Normal [facility] MM diagnostic mammo BI w/CAD on 12-10-2022 MM diagnostic mammo BI w/CAD [facility] [place] [address] Ultrasound Report Signed Patient: Briana Mason MR#: [id number] : 1985 Acct:[id number] Age/Sex: 37 / F ADM Date: 12/10/22 [place]: [facility] Room: Type: [facility] Attending Dr: Amilcar Still Ordering Provider: Amilcar Still DO Date of Service: 12/10/22 MM/MM diagnostic mammo BI w/CAD: SEE ORDER ([id number]) US/US breast LT complete: SEE ORDER Copies [...] grounds. Impression dictated by: Martin Conn Jr., Niko12/10/2022 8:46 AM Dictation Location: [facility] Tech: Jing Pham; Kiarra Braden Transcribed By: RAJ 12/10/22845 Dictated By: Martin Conn Jr, DO 12/10/2244 Signed By: 12/10/22845 Normal [facility] OCC BLD IMMUNO SCREENon 05-09 OCCULT BLOOD Negative Normal NEGATIVE [facility] Comment on above: Performed By: #### H EPBSRF #### [facility] [address] [place] [address] Dr. Yanely Nuñez FERRITINon 05-28-2022 Ferritin [Mass/Vol] 5.0 ng/mL Critically low 6.2-137.0 [facility] Comment on above: Performed By: #### I NICHOLE VITB12, FERR #### [facility] [address] [address] [address] Yanely Nuñez IRONon 05-28-2022 Iron [Mass/Vol] 14.0 ug/dL Critically low 50.0-170.0 [facility] Comment on above: Performed By: #### I NICHOLE VITB12, FERR #### [facility] [address] [address] [address] Yanely Nuñez VITAMIN B12on 05-28-2022 Cobalamin (Vitamin B12) [Mass/Vol] 929.0 pg/mL Normal 193.0-986.0 [facility] Comment on above: Performed By: #### I NICHOLE, VITB12, FERR #### [facility] [address] [place] [address] Dr. Yanely Nuñez CBC AUTO DIFFon 05-27-2022 BASO # 0.0 103/ul Normal 0.0-0.1 [facility] Comment on above: Performed By: #### C BC #### [facility] [address] [place] [address] Dr. Yanely Nuñez Basophils/100 WBC (Bld) 0.1 % Critically low 0.2-2.0 [facility] Comment on above: Performed By: #### C BC #### [facility] [address] [place] [address] Dr. Yanely Nuñez EO # 0.1 103/ul Normal 0.0-0.7 [facility] Comment on above: Performed By: #### C BC #### [facility] [address] [place] [address] Dr. Yanely Nuñez Eosinophils/100 WBC (Bld) 2.0 % Normal 0.9-7.0 [facility] Comment on above: Performed By: #### C BC #### [facility] [address] [place] [address] Dr. Yanely Nuñez Erythrocyte distribution width (RBC) [Ratio] 17.1 % Critically high 11.0-15.0 [facility] Comment on above: Performed By: #### C BC #### [facility] [address] [place] [address] Dr. Yanely Nuñez Hematocrit (Bld) [Volume fraction] 32.1 % Critically low 36.0-48.0 [facility] Comment on above: Performed By: #### C BC #### [facility] [address] [place] [address] Dr. Yanely Nuñez Hemoglobin (Bld) [Mass/Vol] 9.3 g/dL Critically low 12.0-16.0 [facility] Comment on above: Performed By: #### C BC #### [facility] [address] [place] [address] Dr. Yanely Nuñez IG # 0.02 10e3/ul Normal 0.00-0.03 [facility] Comment on above: Performed By: #### C BC #### [facility] [address] [place] [address] Dr. Yanely Nuñez IG % 0.3 % Normal 0.0-0.5 [facility] Comment on above: Performed By: #### C BC #### [facility] [address] [place] [address] Dr. Yanely Nuñez LYMPH # 1.5 103/ul Normal 1.2-3.8 [facility] Comment on above: Performed By: #### C BC #### [facility] [address] [place] [address] Dr. Yanely Nuñez Lymphocytes/100 WBC (Bld) 22.5 % Normal 20.5-60.0 [facility] Comment on above: Performed By: #### C BC #### [facility] [address] [place] [address] Dr. Yanely Nuñez MANUAL DIFF REQ NO Normal [facility] Comment on above: Performed By: #### C BC #### [facility] [address] [place] [address] Dr. Yanely Nuñez MCH (RBC) [Entitic mass] 20.3 pg Critically low 26.7-34.0 [facility] Comment on above: Performed By: #### C BC #### [facility] [address] [place] [address] Dr. Yanely Nuñez MCHC (RBC) [Mass/Vol] 29.0 g/dL Critically low 29.9-35.2 [facility] Comment on above: Performed By: #### C BC #### [facility] [address] [place] [address] Dr. Yanely Nuñez MCV (RBC) [Entitic vol] 70.1 fL Critically low 81.0-99.0 [facility] Comment on above: Performed By: #### C BC #### [facility] [address] [place] [address] Dr. Yanely Nuñez MONO # 0.5 103/ul Normal 0.3-0.8 [facility] Comment on above: Performed By: #### C BC #### [facility] [address] [place] [address] Dr. Yanely Nuñez Monocytes/100 WBC (Bld) 7.0 % Normal 1.7-12.0 [facility] Comment on above: Performed By: #### C BC #### [facility] [address] [place] [address] Dr. Yanely Nuñez NEUT # 4.7 103/ul Normal 1.4-6.5 [facility] Comment on above: Performed By: #### C BC #### [facility] [address] [place] [address] Dr. Yanely Nuñez Neutrophils/100 WBC (Bld) 68.1 % Normal 43.0-75.0 [facility] Comment on above: Performed By: #### C BC #### [facility] [address] [place] [address] Dr. Yanely Nuñez Platelet mean volume (Bld) [Entitic vol] 9.9 fL Normal 9.5-13.5 [facility] Comment on above: Performed By: #### C BC #### [facility] [address] [place] [address] Dr. Yanely Nuñez PLT 488 103/ul Critically high 150-450 [facility] Comment on above: Performed By: #### C BC #### [facility] [address] [place] [address] Dr. Yanely Nuñez RBC 4.58 106/ul Normal 4.20-5.40 [facility] Comment on above: Performed By: #### C BC #### [facility] [address] [place] [address] Dr. Yanely Nuñez WBC 6.9 103/ul Normal 4.0-11.0 [facility] Comment on above: Performed By: #### C BC #### [facility] [address] [place] [address] Dr. Yanely Nuñez GLYCOHEMOGLOBIN A1Con 2022 ADA RECOMMENDATION SEE BELOW Normal [facility] Comment on above: Result Comment: ADA RECOMMENDED LIMIT 4.0 - 6.0 ADA THERAPEUTIC TARGET < 7.0 ACTION SUGGESTED > 7.0 Performed By: #### A 1C #### [facility] [address] [address] [address] Yanely Nuñez Glucose [Mass/Vol] 114 mg/dL Normal [facility] Comment on above: Performed By: #### A 1C #### [facility] [address] [address] [address] Yanely Nuñez HbA1c (Bld) [Mass fraction] 5.6 % Normal 4.5-6.2 [facility] Comment on above: Performed By: #### A 1C #### [facility] [address] [place] [address] Dr. Yanely Nuñez LIPID PROFILEon 05-27-2022 CHOL-HDL RATIO NORM SEE BELOW Normal [facility] Comment on above: Result Comment: 3.3 - 4.4 LOW RISK 4.4 - 7.1 AVERAGE RISK 7.1 - 11.0 MODERATE RISK >11.0 HIGH RISK Performed By: #### C MP, LIPID, TSH #### [facility] [address] [address] [address] Yanely Nuñez Cholesterol [Mass/Vol] 207 mg/dL Critically high <=200 [facility] Comment on above: Performed By: #### C MP, LIPID, TSH #### [facility] [address] [address] [address] Yanely Nuñez Cholesterol in HDL [Mass/Vol] 54 mg/dL Normal 40-60 [facility] Comment on above: Performed By: #### C MP, LIPID, TSH #### [facility] [address] [address] [address] Yanely Nuñez Cholesterol in LDL [Mass/Vol] 141.0 mg/dL Normal [facility] Comment on above: Performed By: #### C MP, LIPID, TSH #### [facility] [address] [place] [address] Dr. Yanely Nuñez Cholesterol.total/Ch olesterol in HDL [Mass ratio] 3.8 {ratio} Normal [facility] Comment on above: Performed By: #### C MP, LIPID, TSH #### [facility] [address] [address] [address] Yanely Nuñez HDL NORMAL > or = 60 mg/dl - LO W CARDIOVASCULAR RISK <40 mg/dl - HIGH CARDIOVASCULAR RISK Normal [facility] Comment on above: Performed By: #### C MP, LIPID, TSH #### [facility] [address] [address] [address] Yanely Nuñez LDL CALC NORMAL SEE BELOW Normal [facility] Comment on above: Result Comment: <100 mg/dl OPTIMAL 100 - 129 mg/dl NEAR OR ABOVE OPTIMAL 130 - 159 mg/dl BORDERLINE HIGH 160 - 189 mg/dl HIGH >190 mg/dl VERY HIGH Performed By: #### C MP, LIPID, TSH #### [facility] [address] [address] [address] Yanely Nuñez Triglyceride [Mass/Vol] 60 mg/dL Normal <=150 [facility] Comment on above: Performed By: #### C MP, LIPID, TSH #### [facility] [address] [address] [address] Yanely Nuñez VLDL CALC 12.0 mg/dL Normal [facility] Comment on above: Performed By: #### C MP, LIPID, TSH #### [facility] [address] [address] [address] Yanely Nuñez PROF 14(COMP METB)on 023 Albumin [Mass/Vol] 4.0 g/dL Normal 3.4-5.0 [facility] Comment on above: Performed By: #### C MP, LIPID, TSH #### [facility] [address] [address] [address] Yanely Nuñez Albumin/Globulin [Mass ratio] 1.0 {ratio} Normal [facility] Comment on above: Performed By: #### C MP, LIPID, TSH #### [facility] [address] [address] [address] Yanely Nuñez ALP [Catalytic activity/Vol] 57 U/L Normal 46-116 [facility] Comment on above: Performed By: #### C MP, LIPID, TSH #### [facility] [address] [address] [address] Yanely Nuñez ALT [Catalytic activity/Vol] 111 U/L Critically high 14-59 [facility] Comment on above: Performed By: #### C MP, LIPID, TSH #### [facility] [address] [address] [address] Yanely Nuñez Anion gap [Moles/Vol] 13.1 mmol/L Normal [facility] Comment on above: Performed By: #### C MP, LIPID, TSH #### [facility] [address] [address] [address] Yanely Nuñez AST [Catalytic activity/Vol] 34 U/L Normal 15-37 [facility] Comment on above: Performed By: #### C MP, LIPID, TSH #### [facility] [address] [address] [address] Yanely Nuñez Bilirubin [Mass/Vol] 0.4 mg/dL Normal 0.2-1.0 [facility] Comment on above: Performed By: #### C MP, LIPID, TSH #### [facility] [address] [address] [address] Yanely Nuñez Calcium [Mass/Vol] 9.5 mg/dL Normal 8.5-10.1 [facility] Comment on above: Performed By: #### C MP, LIPID, TSH #### [facility] [address] [address] [address] Yanely Nuñez Chloride [Moles/Vol] 104 mmol/L Normal 98-107 [facility] Comment on above: Performed By: #### C MP, LIPID, TSH #### [facility] [address] [address] [address] Yanely Nuñez CO2 [Moles/Vol] 27.2 mmol/L Normal 21.0-32.0 [facility] Comment on above: Performed By: #### C MP, LIPID, TSH #### [facility] [address] [address] [address] Yanely Nuñez Creatinine [Mass/Vol] 0.76 mg/dL Normal 0.55-1.02 [facility] Comment on above: Performed By: #### C MP, LIPID, TSH #### [facility] [address] [address] [address] Yanely Nuñez EGFR-AF POLISH >60 Normal >=60 [facility] Comment on above: Performed By: #### C MP, LIPID, TSH #### [facility] [address] [address] [address] Yanely Nuñez EGFR-NON AF POLISH >60 Normal >=60 [facility] Comment on above: Performed By: #### C MP, LIPID, TSH #### [facility] [address] [address] [address] Yanely Nuñez Globulin (S) [Mass/Vol] 4.0 g/dL Normal [facility] Comment on above: Performed By: #### C MP, LIPID, TSH #### [facility] [address] [address] [address] Yanely Nuñez Glucose [Mass/Vol] 86 mg/dL Normal 74-106 [facility] Comment on above: Performed By: #### C MP, LIPID, TSH #### [facility] [address] [address] [address] Yanely Nuñez Potassium [Moles/Vol] 4.3 mmol/L Normal 3.5-5.1 [facility] Comment on above: Performed By: #### C MP, LIPID, TSH #### [facility] [address] [address] [address] Yanely Nuñez Protein [Mass/Vol] 8.0 g/dL Normal 6.4-8.2 [facility] Comment on above: Performed By: #### C MP, LIPID, TSH #### [facility] [address] [address] [address] Yanely Nuñez Sodium [Moles/Vol] 140 mmol/L Normal 136-145 [facility] Comment on above: Performed By: #### C MP, LIPID, TSH #### [facility] [address] [address] [address] Yanely Nuñez Urea nitrogen [Mass/Vol] 13.0 mg/dL Normal 7.0-18.0 [facility] Comment on above: Performed By: #### C MP, LIPID, TSH #### [facility] [address] [place] [address] Dr. Yanely Nuñez Urea nitrogen/Creatinine [Mass ratio] 17.1 mg/mg Normal [facility] Comment on above: Performed By: #### C MP, LIPID, TSH #### [facility] [address] [place] [address] Dr. Yanely Nuñez TSHon 05-27-2022 TSH 0.862 uIU/mL Normal 0.358-3.740 [facility] Comment on above: Performed By: #### C MP, LIPID, TSH #### [facility] [address] [place] [address] Dr. Yanely Nuñez QUANTIFERON TB GOLD PLUSon 1 QuantiFERON Criteria Comment Normal [facility] Comment on above: Result Comment: Leoncio [...] test. Performed By: #### H EPBSRF #### [facility] [address] [place] [address] Dr. Yanely Nuñez QuantiFERON Incubation Incubation performed. Normal [facility] Comment on above: Performed By: #### H EPBSRF #### [facility] [address] [place] [address] Dr. Yanely Nuñez QuantiFERON Mitogen Value >10.00 Normal [facility] Comment on above: Performed By: #### H EPBSRF #### [facility] [address] [place] [address] Dr. Yanely Nuñez QuantiFERON Nil Value 0.03 IU/mL [facility] Comment on above: Performed By: #### H EPBSRF #### [facility] [address] [place] [address] Dr. Yanely Nuñez QuantiFERON TB1 Ag Value 0.04 IU/mL Normal [facility] Comment on above: Performed By: #### H EPBSRF #### [facility] [address] [place] [address] Dr. Yanely Nuñez QuantiFERON TB2 Ag Value 0.03 IU/mL Normal [facility] Comment on above: Performed By: #### H EPBSRF #### [facility] [address] [place] [address] Dr. Yanely Nuñez QuantiFERON-TB Gold Plus Negative Normal Negative [facility] Comment on above: Result Comment: No r esponse to M tuberculosis antigens detected. Infection with M tuberculosis is unlikely, but high risk individuals should be considered for additional testing (ATS/IDSA/CDC Clinical Practice Guidelines, 2017). The reference range is an Antigen minus Nil result of <0.35 IU/mL. Chemiluminescence immunoassay methodology Performed By: #### H EPBSRF #### [facility] [address] [place] [address] Dr. Yanely Nuñez HEPATITIS B SURFACE ANTIBODY , QUANTon 02-05-2022 Hepatitis B Surf AB Quant >1000.0 Normal Immunity>9.9 The [facility] Comment on above: Result Comment: Stat us of Immunity Anti-HBs Level Inconsistent with Immunity 0.0 - 9.9 Consistent with Immunity >9.9 Performed By: #### H EPBSRF #### [facility] [address] [place] [address] Dr. Yanely Nuñez MMR IMMUNITYon 02-05-2022 Mumps Abs, IgG 56.4 AU/mL Normal Immune >10.[address] [facility] Comment on above: Result Comment: Nega tive <9.0 Equivocal 9.0 - 10.9 Positive >10.9 A positive result generally indicates past exposure to Mumps virus or previous vaccination. Performed By: #### H EPBSRF #### [facility] [address] [place] [address] Dr. Yanely Nuñez Rubella Antibodies, IgG 2.90 index Normal Immune >0.99 [facility] Comment on above: Result Comment: Non- immune <0.90 Equivocal 0.90 - 0.99 Immune >0.99 Performed By: #### H EPBSRF #### [facility] [address] [place] [address] Dr. Yanely Nuñez Rubeola Ab, IgG 183.0 AU/mL Normal Immune >16.4 The [facility] Comment on above: Result Comment: Nega tive <13.5 Equivocal 13.5 - 16.4 Positive >16.4 Presence of antibodies to Rubeola is presumptive evidence of immunity except when acute infection is suspected. Performed By: #### H EPBSRF #### [facility] [address] [place] [address] Dr. Yanely Nuñez VARICELLA IGG ABon 2 Varicella Zoster IgG 483 index Normal Immune >165 [facility] Comment on above: Result Comment: Nega tive <135 Equivocal 135 - 165 Positive >165 A positive result generally indicates exposure to the pathogen or administration of specific immunoglobulins, but it is not indication of active infection or stage of disease. Performed By: #### H EPBSRF #### [facility] [address] [place] [address] Dr. Yanely Nuñez PAP ACOG PANEL 2: 30 to 65on 11-25-2021 . . Normal [facility] Comment on above: Result Comment: Perf ormed at: WB Performed By: #### [id number] #### [facility] [address] [place] [address] Dr. Yanely Nuñez Age Gdln ACOG Testing Normal [facility] Comment on above: Performed By: #### [id number] #### [facility] [address] [place] [address] Dr. Yanely Nuñez DIAGNOSIS: Comment Normal [facility] Comment on above: Result Comment: NEGA TIVE FOR INTRAEPITHELIAL LESION OR MALIGNANCY. Performed at: WB Performed By: #### [id number] #### [facility] [address] [place] [address] Dr. Yanely Nuñez HPV Aptima Negative Normal Negative [facility] Comment on above: Result Comment: This nucleic acid amplification test detects fourteen high-risk HPV types (16,18,31,33,35,39,45,51,52,56,58,59,66,68) without differentiation. Performed at: =G Performed By: #### [id number] #### [facility] [address] [place] [address] Dr. Yanely Nuñez Methodology: Comment Normal [facility] Comment on above: Result Comment: This liquid based ThinPrep(R) pap test was screened with the use of an image guided system. Performed at: WB Performed By: #### [id number] #### [facility] [address] [place] [address] Dr. Yanely Nuñez Note: Comment Normal [facility] Comment on above: Result Comment: The Pap smear is a screening test designed to aid in the detection of premalignant and malignant conditions of the uterine cervix. It is not a diagnostic procedure and should not be used as the sole means of detecting cervical cancer. Both false-positive and false-negative reports do occur. . Performed at: WB Performed By: #### [id number] #### [facility] [address] [place] [address] Dr. Yanely Nuñez Performed by: Comment Normal [facility] Comment on above: Result Comment: Darlin Cline, Candy Dipper Hand (ASCP) Performed at: WB Performed By: #### [id number] #### [facility] [address] [place] [address] Dr. Yanely Nuñez Specimen adequacy: Comment Normal [facility] Comment on above: Result Comment: Sati sfactory for evaluation. Endocervical and/or squamous metaplastic cells (endocervical component) are present. Performed at: WB Performed By: #### [id number] #### [facility] [address] [place] [address] Dr. Yanely Nuñez Vital Signs Date Time Vital Sign Value Performing Clinician Yajaira bradley 11-21-2023 19:00-0400 Body height 162.6 cm Danii Daly NP Work Phone: [facility] 11-21-2023 19:00-0400 Body mass index (BMI) [Ratio] 29.9 kg/m2 Danii Marshbridget CAMERA TUNING ENGINEER Work Phone: [facility] 11-21-2023 19:00-0400 Body temperature 99.7 [degF] Danii Urenagabby CAMERA TUNING ENGINEER Work Phone: [facility] 11-21-2023 19:00-0400 Body weight 79.02 kg Danii Addy CAMERA TUNING ENGINEER Work Phone: [facility] 11-21-2023 19:00-0400 Diastolic blood pressure 76 mm[Hg] Danii Addy CAMERA TUNING ENGINEER Work Phone: [facility] 11-21-2023 19:00-0400 Heart rate 110 /min Danii Addy CAMERA TUNING ENGINEER Work Phone: [facility] 11-21-2023 19:00-0400 Respiratory rate 19 /min Danii Addy CAMERA TUNING ENGINEER Work Phone: [facility] 11-21-2023 19:00-0400 SaO2% (BldA) [Mass fraction] 96 % Danii Urenagabby CAMERA TUNING ENGINEER Work Phone: [facility] 11-21-2023 19:00-0400 Systolic blood pressure 132 mm[Hg] Danii Urenagabby CAMERA TUNING ENGINEER Work Phone: [facility] Encounters Encounter Date Encounter Type Care Provider Facility Start: 12-14-2023 End: 12-14-2023 Clinisync Result Encounter Amilcar Guy DO Work Phone: [facility] External Department Unsolicited Start: 12-14-2023 End: 12-14-2023 Clinisync Result Encounter Amilcar Guy DO Work Phone: [facility] External Department Unsolicited Start: 11-21-2023 End: 11-21-2023 Office outpatient visit 15 minutes Danii Addy CAMERA TUNING ENGINEER Work Phone: [facility] Comment on above: Acute bronchitis due to other specified organisms (Primary Dx) Start: 11-21-2023 End: 11-21-2023 ambulatory DANIINasrin DALY Not Available Start: 11-21-2023 End: 11-21-2023 Bamboo flowsheet Danii Addy CAMERA TUNING ENGINEER Work Phone: [facility] Start: 11-21-2023 End: 11-21-2023 Bamboo flowsheet Danii Addy CAMERA TUNING ENGINEER Work Phone: [facility] Start: 11-14-2023 End: 11-14-2023 Clinisync Result Encounter Generic External Data Provider [facility] Unsolicited Start: 11-14-2023 End: 11-14-2023 Clinisync Result Encounter Generic External Data Provider [facility] Unsolicited Start: 11-07-2023 End: 11-07-2023 ambulatory Danii Valdez Addy Work Phone: [facility] Work Phone: Start: 11-07-2023 End: 11-07-2023 Departed Referred Danii Addy Work Phone: [facility] [place] [facility] Start: 01-26-2023 End: 01-26-2023 ambulatory AMILCAR GUY Not Available Start: 12-17-2022 End: 12-17-2022 Patient encounter procedure Danii Addy Work Phone: [facility] [place] Work Phone: Start: 12-17-2022 End: 12-17-2022 ambulatory Danii Valdez Addy Work Phone: [facility] Work Phone: Start: 12-10-2022 End: 12-10-2022 Patient encounter procedure Danii Addy Work Phone: [facility] Work Phone: Start: 12-10-2022 End: 12-10-2022 ambulatory Danii Valdez Addy Work Phone: [facility] Work Phone: Start: 05-31-2022 Encounter for genera l adult medical examination without abnormal findings NAYELY DALY [facility] Start: 05-30-2022 End: 05-30-2022 ambulatory NAYELY DALY Facility:[facility] Start: 05-28-2022 End: 05-29-2022 ambulatory NAYELY DALY Facility:[facility] Start: 05-27-2022 End: 05-28-2022 ambulatory HAND WOOD SANDER DANII DALY Facility:[facility] Start: 05-27-2022 End: 05-28-2022 Encounter for general adult medical examination without abnormal findings NAYELY DALY Facility:[facility] Start: 02-03-2022 End: 02-04-2022 ambulatory PHONGKELSEY OSEI Facility:[facility] Start: 11-18-2021 End: 11-18-2021 ambulatory AMILCAR STILL Facility:[facility] Procedures Date Procedure Procedure Detail Performing Clinician Start: 12-14-2023 Antibody screen Amilcar F azio DO Work Phone: Start: 12-14-2023 ALL TYPE AND SCREEN Gen isreal External Data Provider Start: 11-14-2023 ALL CBC WITH AUTO DIFF Amilcar Still DO Work Phone: Start: 12-17-2022 Pelvic echography Danii Urenaraisaderick Work Phone: Start: 12-17-2022 Transvaginal echography Danii Urenaraisaderick Work Phone: Start: 12-10-2022 Bilateral mammography L evelyn Ayannariasaderick Work Phone: Plan of Treatment Date Care Activity Detail Author Start: 12-20-2023 End: 12-20-2023 Patient encounter procedure 12/20/2023 6:00 AM EST Procedure Visit [facility] Amilcar Still, [address] [place] [address] [facility] Start: 11-24-2023 End: 11-24-2023 Patient encounter procedure 11/24/2023 1:00 PM EDT Procedure Visit [facility] Amilcar Still, DO [address] [place] [address] [place] [address] [facility] Start: 11-21-2023 End: 11-21-2023 Patient encounter procedure 11/21/2023 7:00 PM EDT Office Visit [facility] [address] [place] [address] Danii Daly, DAMASO [address] [place] [phone] Arrived [facility] Comment on above: Arrived Start: 10-09-2023 Influenza vaccination Influenza Vacc ine (#1) [facility] Start: 06-23-2015 Screening for malign ant neoplasm of cervix [facility] Start: 2006 Screening for malign ant neoplasm of cervix Pap Smear [facility] Payers Date Payer Category Payer [facility] Care [facility] (unspecified) [id number] 1985 Unknown [id number] 2.16.84 [id number] 1985 Unknown [id number] 2.16.84 [id number] 1985 Unknown [id number] 2.16.84 [id number] 1985 Unknown [id number] 2.16.84 [id number] 1985 Unknown [id number] 1985 Unknown [id number] 1985 Unknown [id number] [id number] .[id number] 1959 Private Health Insurance [id number] 1959 Private Health Insurance [id number] 1959 Self-pay Unknown [id number] 2.16.84 [id number] Unknown [id number] Unknown [id number] Unknown [id number] Social History Date Type Detail Facility Tobacco smoking stat [facility] Unknown if ever smoked [facility] Work Phone: Start: 1985 Sex Assigned At Female [facility] Tobacco smoking stat [place] [facility] Tobacco smoking consumption unknown [facility] Start: 11-15-2022 Gender identity Identifies as female gender (finding) [facility] Start: 11-15-2022 Sexual orientation Heterosexual (finding) [facility] History of Present illness Narrative 11-21-2023 [...] not better Pt started noticing symptoms on thurs, including cough and cold chills, headaches. Pt has been having barky cough, tightness in the chest, night swets, sob, burning when coughing, pt has crackling when breathing. 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 and suggested bronchitis [...] 200 MG capsule documented in this encounter [facility] Evaluation note Note Date & Type Note Facility Evaluation note [facility]: Evaluation note Note Date [...] CREATED AUTHOR AUTHOR'S ORGANIZ ATION 11/12/2023 [facility] DATE CREATED AUTHOR AUTHOR'S ORGANIZ ATION 11/23/2023 [facility] Care Teams (unrecognized sec tion and content) [...] November 07, 2023 End: November 07, 2023 Shuttlecock Assembler Relationship Specialty Start Date End Date John Alicia MD [address] [place] [phone] PCP - General Family Medicine 11/21/23 Danii Daly NP [address] [place] [phone] Nurse Practitioner Family Medicine 11/21/23 Shuttlecock Assembler Relationship Specialty Start Date End Date John Alicia MD [address] [place] [phone] PCP - General Family Medicine 11/21/23 Danii Daly NP [address] [place] [phone] Nurse Practitioner Family Medicine 11/21/23 Shuttlecock Assembler Relationship Specialty Start Date End Date John Alicia MD [address] [place] [phone] PCP - General Family Medicine 11/21/23 Danii Daly NP [address] [place] [phone] Nurse Practitioner Family Medicine 11/21/23 Goals (unrecognized [...] BE BASED ON THE PRIMARY CLINICAL RECORDS. [facility]. provides no warranty or guarantee of the accuracy or completeness of information in this document.
[2023-12-20 06:22] LABS: Basophils Percent Auto 0.1 % (0.2-2.0); Eosinophils Absolute Auto 0.2 10^3/uL (0.0-0.7); Hematocrit 39.5 % (36.0-48.0); Hemoglobin 13.3 g/dL (12.0-16.0); Immature Granulocytes Abs Auto 0.02 10^3/uL (0.00-0.03); Immature Granulocytes Pct Auto 0.3 % (0.0-0.5); Lymphocytes Absolute Auto 1.9 10^3/uL (1.2-3.8); Lymphocytes Percent Auto 26.5 % (20.5-60.0); Mean Corpuscular HGB Conc 33.7 g/dL (29.9-35.2); Mean Corpuscular Volume 86.2 fL (81.0-99.0); Mean Platelet Volume 9.5 fL (9.5-13.5); Monocytes Absolute Auto 0.5 10^3/uL (0.3-0.8); Monocytes Percent Auto 6.5 % (1.7-12.0); Neutrophils Absolute Auto 4.5 10^3/uL (1.4-6.5); Neutrophils Percent Auto 63.6 % (43.0-75.0); Platelet Count 316 10^3/uL (150-450); Red Blood Count 4.58 10^6/uL (4.20-5.40); Red Cell Distribution Width 12.8 % (11.0-15.0)
[2023-12-20 06:41] LABS: HCG Quantitative <1 mIU/mL
[2023-12-20] MEDS: LACTATED RINGER'S SOLUTION 1,000 ML 50 ML IV ×2 (06:49→09:04)
[2023-12-20] MEDS: SCOPOLAMINE 1 MG/3 DAYS TRANSDERM PATCH 1 PATCH TD (06:52)
[2023-12-20] MEDS: CEFAZOLIN SODIUM 1 GM/50 ML D5W PREMIX IV (07:37)
--- NOTE | 2023-12-20 10:45 | PM.ONB ---
Brief Operative Note Date of procedure: 12/20/23 Pre-op diagnosis general: menorrhagia, dysmenorrhea, dyspareunia Post-op diagnosis: same as pre-op Procedure: NAME OF PROCEDURE: ? Robotic assisted laparoscopic hysterectomy with cystoscopy, bilateral salpingectomy converted to total abdominal hysterectomy conversion was based on the significant amount of scar tissue of the uterus to the anterior abdominal wall and well as significant amount of scar tissue of the bladder to the uterus and anterior wall PROCEDURE:? The patient was taken back to the operating room, where she was prepped and draped in the normal sterile fashion after being placed in the dorsal lithotomy position.? Patient?s anesthesia was found to be adequate.? Surgical timeout was performed using two patient identifiers.? SCDs were on and in place.? Two grams of Ancef were given prior to the surgery.? Sterile Mo catheter was inserted.? Standard size VCare was secured to the uterine cervix and the surgeon changed gloves.? Attention then was turned to the patient's abdomen, where a supraumbilical incision was then made.? Two S retractors were used to identify the patient?s fascia.? The fascia was then tented up using Bessy clamps and the patient?s fascia was incised sharply.? Patient?s abdomen was identified and entered bluntly.? The patient had the trocar placed and a pneumoperitoneum was obtained.? Approximately 4 liters of CO2 gas was used.? The camera was then placed through the trocar.? At this time, two robot trocars were placed in the patient?s left and right side, two hand widths from the midline, and this was placed under direct visualization.? The patient?s tube on the right side was tented up and the vessel sealer was then used to come across the mesosalpinx, and this was carried down to the uterine ovarian ligament. A Pfannenstiel skin incision was then made 2 cm above the symphysis and pubis and carried down to underlying rectus fascia using a Bovie. The fascia was incised in the midline and extended bilaterally using Funes scissors. Two Bessy clamps were placed on the superior aspect of the fascia and dissected off the underlying rectus muscle. The same was performed on the inferior aspect as well. The muscle was then in the midline. The peritoneum was identified and entered bluntly. Peritoneum was then extended superiorly and inferiorly with good visualization of the bladder. An O'Rtmdocdn-I-Ydsqib retractor was placed into the patient's abdomen. The bowel was packed away with moist laparotomy sponges and the bladder blade was inserted. A Leahey tenaculum was placed on the patient's uterus and used for retraction. The ligasure apparatus was used to come across the uterine ovarian ligament and this was carried down serially through the broad ligament and across the round ligament. The bladder flap was then created using the Metzenbaum scissors, and the bladder was easily dissected off the patient's lower uterine segment. A curved Jose was placed across the uterine artery on the right side which was clamped, transected, and suture ligated using #0 Monocryl. This was performed on the contralateral side as well. The bladder was further dissected and a Zeppelin clamp was then placed across the uterosacral and cardinal ligaments. This was transected and suture ligated using #0 Monocryl. This was performed on the contralateral side as well. The uterus was then amputated using Estuardo scissors. The patient's cuff was closed using #0 PDS in a running locked fashion and this was transfixed to the ipsilateral uterosacral and cardinal ligaments. Excellent hemostasis was assured. The patient's abdomen wascopiously irrigated using warm saline. Cystoscopy was performed. Bladder was intact. Efflux was noted from both ostia. Cystoscope was removed.After excellent hemostasis was assured, all instruments were removed from the patient's abdomen. The patient's peritoneum was closed using 3-0 Vicryl in a running fashion. The patient's fascia was closed using #0 Vicryl in a running fashion. The patient's skin was closed using 4-0 vicryl on a mary needle. The patient tolerated the procedure well. Sponge, lap, and needle counts were correct times two. Patient taken to the Recovery Room in stable condition Anesthesia: JUDY Surgeon: Piter Still Die Maker Trim: [address] Estimated blood loss (mL): 300 Pathology: other (uterus cervix and tubes) Condition: stable Disposition: PACU Urinary Catheter Management Urinary Catheter Management Urethral: Cath placed during this visit: no
[2023-12-20] MEDS: LACTATED RINGER'S SOLUTION 1,000 ML 125 ML IV ×2 (12:40→21:06)
[2023-12-20] MEDS: CEFAZOLIN SODIUM/DEXTROSE,ISO 2 GM/50 ML PIGGYBACK IV ×2 (14:00→20:09)
[2023-12-20] MEDS: ONDANSETRON PF 4 MG/2 ML VIAL IV ×2 (14:57→21:07)
[2023-12-20] MEDS: KETOROLAC TROMETHAMINE 30 MG/ML VIAL IVP ×2 (14:57→23:15)
[2023-12-20] MEDS: OXYCODONE HCL/ACETAMINOPHEN 5MG/325MG 2 TAB PO (18:13)
[2023-12-20] MEDS: SIMETHICONE 80 MG TAB.CHEW PO (20:05)
[2023-12-20] MEDS: IBUPROFEN 400 MG TABLET 800 MG PO (20:08)
[2023-12-20] MEDS: TEMAZEPAM 15 MG CAPSULE 30 MG PO (21:07)
[2023-12-20] MEDS: PROMETHAZINE HCL 25 MG in 0.9 % SODIUM CHLORIDE 50 ML 204 MG IV (21:07)
[2023-12-20] MEDS: HYDROMORPHONE HCL 0.5 MG/0.5 ML SYRINGE IV (21:07)
[2023-12-21] VITALS (7 sets, daily range): BP systolic 112–160; BP diastolic 72–95; PULSE 76–882; TEMP 36.6–36.8; O2SAT 95–97
[2023-12-21] MEDS: OXYCODONE HCL/ACETAMINOPHEN 5MG/325MG 2 TAB PO (04:15)
[2023-12-21 06:58] LABS: Basophils Percent Auto 0.1 % (0.2-2.0); Eosinophils Percent Auto 0.2 % (0.9-7.0); Hematocrit 33.5 % (36.0-48.0); Hemoglobin 11.2 g/dL (12.0-16.0); Immature Granulocytes Abs Auto 0.03 10^3/uL (0.00-0.03); Immature Granulocytes Pct Auto 0.3 % (0.0-0.5); Lymphocytes Percent Auto 17.7 % (20.5-60.0); Mean Corpuscular HGB Conc 33.4 g/dL (29.9-35.2); Mean Corpuscular Hemoglobin 29.2 pg (26.7-34.0); Mean Corpuscular Volume 87.2 fL (81.0-99.0); Mean Platelet Volume 9.8 fL (9.5-13.5); Monocytes Absolute Auto 0.9 10^3/uL (0.3-0.8); Monocytes Percent Auto 7.8 % (1.7-12.0); Neutrophils Absolute Auto 8.4 10^3/uL (1.4-6.5); Neutrophils Percent Auto 73.9 % (43.0-75.0); Platelet Count 320 10^3/uL (150-450); Red Blood Count 3.84 10^6/uL (4.20-5.40); Red Cell Distribution Width 13.3 % (11.0-15.0); White Blood Count 11.3 10^3/uL (4.0-11.0)
[2023-12-21] MEDS: ENOXAPARIN SODIUM 40 MG/0.4 ML SYRINGE SUBQ (08:34)
[2023-12-21] MEDS: MAGNESIUM HYDROXIDE 2,400 MG/10 ML ORAL.SUSP 2400 MG PO (08:34)
[2023-12-21] MEDS: DOCUSATE SODIUM 100 MG CAPSULE PO ×2 (08:34→22:44)
[2023-12-21] MEDS: OXYCODONE HCL/ACETAMINOPHEN 5MG/325MG 1 TAB PO ×2 (10:11→17:39)
--- NOTE | 2023-12-21 10:43 | PM.GYNPN2 ---
PORTFOLIO MANAGER - PN: Subj Post-Op Subjective: patient reports feeling better, patient has no complaints, patient desires discharge, pain is well controlled and patient is tolerating oral intake Exam Narrative Exam Narrative: denies flatus, denies n.v.df..c. denies cp sob ct Constitutional Vital Signs, click to edit/add: Last Vital Signs Temp 97.8 F 12/21/23 08:38 Pulse 80 12/21/23 08:38 Resp 16 12/21/23 08:38 BP 126/76 12/21/23 08:38 Pulse Ox 95 12/21/23 08:38 O2 Del Method Room Air 12/21/23 08:38 Documenting provider has reviewed patient's vital signs: yes Common normals: no apparent distress Respiratory Common normals: normal respiratory effort and clear to auscultation bilaterally Cardio Common normals: regular rate and regular rhythm GI Common normals: Normal to inspection, nondistended, normoactive bowel sounds present Extremity Common normals: no calf tenderness Results Labs Labs: Short CBC 12/21/23 Range/Units 06:36 WBC 11.3 H (4.0-11.0) 10^3/uL Hgb 11.2 L (12.0-16.0) g/dL Hct 33.5 L (36.0-48.0) % Plt Count 320 (150-450) 10^3/uL PORTFOLIO MANAGER - A/P Postoperative Procedures: Procedures Operation Date: 12/20/23 07:30 Actual Procedure Side Surgeon p Attempted Davinci Assisted Laparoscopic Hysterectomy converted to total abdominal hysterectomy, bilateral salpingectomy ,Cysto Not Applicable Piter Still DO Postoperative day: 1 Postoperative status PORTFOLIO MANAGER: doing well Post-operative plan PORTFOLIO MANAGER: routine post-op care and discharge Fall Risk Details Muhammad fall scale risk level: Low Fall Risk Current medications: Current Medications Docusate Sodium (Docusate Sodium 100 Mg Capsule) 100 mg PO BID PRN PRN Reason: Constipation Last Admin: 12/21/23 08:34 Dose: 100 mg Enoxaparin Sodium (Enoxaparin Sodium 40 Mg/0.4 Ml Syringe) 40 mg SUBQ Q24H MAGDALENA Last Admin: 12/21/23 08:34 Dose: 40 mg Hydromorphone HCl (Hydromorphone Hcl 0.5 Mg/0.5 Ml Syringe) 0.5 mg IV Q6H PRN PRN Reason: Pain Scale 7-10 Last Admin: 12/20/23 21:07 Dose: 0.5 mg Lactated Ringer's (Lactated Ringers) 1,000 mls @ 125 mls/hr IV .Q8H MAGDALENA Last Admin: 12/21/23 05:32 Dose: Not Given Promethazine HCl 25 mg/ Sodium (Chloride) 51 mls @ 204 mls/hr IV Q6H PRN PRN Reason: Nausea And Vomiting Last Infusion: 12/20/23 21:22 Dose: Infused Ibuprofen (Ibuprofen 400 Mg Tablet) 800 mg PO Q6H PRN PRN Reason: Pain Last Admin: 12/20/23 20:08 Dose: 800 mg Ketorolac Tromethamine (Ketorolac Tromethamine 30 Mg/Ml Vial) 30 mg IVP Q6H PRN PRN Reason: Pain Last Admin: 12/20/23 23:15 Dose: 30 mg Ondansetron HCl (Ondansetron Pf 4 Mg/2 Ml Vial) 4 mg IV Q6H PRN PRN Reason: Nausea Last Admin: 12/20/23 21:07 Dose: 4 mg Oxycodone/Acetaminophen (Oxycodone Hcl/Acetaminophen 5mg/325mg) 1 tab PO Q6H PRN PRN Reason: Pain Last Admin: 12/21/23 10:11 Dose: 1 tab Oxycodone/Acetaminophen (Oxycodone Hcl/Acetaminophen 5mg/325mg) 2 tab PO Q6H PRN PRN Reason: Pain Last Admin: 12/21/23 04:15 Dose: 2 tab Simethicone (Simethicone 80 Mg Tab.Chew) 80 mg PO PCHS PRN PRN Reason: Abdominal Distention Last Admin: 12/20/23 20:05 Dose: 80 mg Temazepam (Temazepam 15 Mg Capsule) 30 mg PO QHS PRN PRN Reason: Sleep Last Admin: 12/20/23 21:07 Dose: 30 mg Time Spent With Patient Time: Total time spent is greater than 50% in coordination of care (as documented) at patient's floor/unit and/or counseling patient: Time with patient: less than 15 minutes Urinary Catheter Management Urinary Catheter Management Urethral: Cath placed during this visit: yes, but has since been removed by the nurse Removal date: 12/21/23 Removal time: 05:21
[2023-12-21] MEDS: IBUPROFEN 400 MG TABLET 800 MG PO (14:38)
[2023-12-21] MEDS: KETOROLAC TROMETHAMINE 30 MG/ML VIAL IVP (22:43)
[2023-12-21] MEDS: ONDANSETRON PF 4 MG/2 ML VIAL IV (22:44)
[2023-12-22 00:40] VITALS: BP 119/72; PULSE 81; TEMP 36.7; O2SAT 95
[2023-12-22 04:00] VITALS: BP 121/76; PULSE 79; TEMP 36.8; O2SAT 94
[2023-12-22] MEDS: OXYCODONE HCL/ACETAMINOPHEN 5MG/325MG 2 TAB PO (04:08)
--- OUTSIDE RECORDS SUMMARY | 2023-12-22 07:30 | XMS_ITS | CCD ---
Author Organization [facility] Care Team Providers Care Applied Psychology Teacher Name Role Phone PHONG OSEI Attending Unavailable PHONG OSEI Consulting Unavailable PHONG OSEI Admitting Unavailable REQUEST, NONE LISTED Primary Care Unavaila ble AICHHOLZ, MOVIE CRITIC DANII Admitting Unavailable AICHHOLZ, MOVIE CRITIC DANII Attending Unavailable AICHHOLZ, MOVIE CRITIC DANII Consulting Unavailable AICHHOLZ, MOVIE CRITIC DANII Primary Care Unavailable AICHHOLZ, MOVIE CRITIC DANII Admitting Unavailable AICHHOLZ, MOVIE CRITIC DANII Attending Unavailable AICHHOLZ, MOVIE CRITIC DANII Consulting Unavailable AICHHOLZ, MOVIE CRITIC DANII Primary Care Unavailable AICHHOLZ, MOVIE CRITIC DANII Attending Unavailable AICHHOLZ, MOVIE CRITIC DANII Consulting Unavailable AICHHOLZ, MOVIE CRITIC DANII Primary Care Unavailable AICHHOLZ, MOVIE CRITIC DANII Admitting Unavailable AMILCAR STILL Attending Unavailable AMILCAR STILL Consulting Unavailable AMILCAR STILL Admitting Unavailable REQUEST, NONE LISTED Primary Care Unavaila ble Amilcar Still Attending Provider Danii Daly Primary Care Provider Danii Daly Referring Provider [phone] Amilcar Still Attending Provider Danii Daly Primary Care Provider [phone] Danii Daly Referring Provider Danii Daly Primary Care Provider [phone] DO Amilcar Still Attending Provider Amilcar Still [...] Unavailable John Alicia MD Primary Care Provider [phone] Addy PETIT, Danii Unavailable Medications Current Medications Medication Drug Class(es) Dates Sig (Normalized) Sig (Original) [id number] 200 actuat albuterol 0.09 mg/actuat metered dose [...] Nom (Bld) Blood group O Rh(D) negative [facility] , [facility] ALL CBC WITH AUTO DIFFon BASOPHILS ABSOLUTE AUTO 0.0 [facility] Basophils/100 WBC (Bld) 0.3 % 0.2 - 2.0 % [facility] Eosinophils/100 WBC (Bld) 4.5 % 0.9 - 7.0 % [facility] Erythrocyte distribution width (RBC) [Ratio] 12.6 % 11.0 - 15.0 % [facility] Hematocrit (Bld) [Volume fraction] 44.5 % 36.0 - 48.0 % [facility] Hemoglobin (Bld) [Mass/Vol] 14.7 g/dL 12.0 - 16.0 g/dL [facility] IMMATURE GRANULOCYTES ABS AUTO 0.02 [facility] Immature granulocytes/100 WBC (Bld) 0.3 % 0.0 - 0.5 % [facility] LYMPHOCYTES ABSOLUTE AUTO 1.9 [facility] Lymphocytes/100 WBC (Bld) 27.5 % 20.5 - 60.0 % [facility] MCH (RBC) [Entitic mass] 29.3 pg 26.7 - 34.0 pg [facility] MCHC (RBC) [Mass/Vol] 33.0 g/dL 29.9 - 35.2 g/dL [facility] MCV (RBC) [Entitic vol] 88.6 fL 81.0 - 99.0 fL [facility] MONOCYTES ABSOLUTE AUTO 0.5 [facility] Monocytes/100 WBC (Bld) 6.8 % 1.7 - 12.0 % [facility] NEUTROPHILS ABSOLUTE AUTO 4.3 [facility] Neutrophils/100 WBC (Bld) 60.6 % 43.0 - 75.0 % [facility] Platelet mean volume (Bld) [Entitic vol] 9.6 fL 9.5 - 13.5 fL [facility] EO # 0.3 [facility] PLT 327 [facility] RBC 5.02 [facility] WBC 7.1 [facility] Apollo 11-07-2023 L Specimen: [id number] Received: 11/08/23 Status: PATIENCE Alfredo Num: [id number] Spec Type: Surgical Subm Dr: Amilcar Still Tissues: A Endometrium - Biopsy (ENDOMETRIAL BX) Procedures: HE/2, Gross/Micro L4 Age/ Patient Sex Location Account Attending Physician Briana Mason 38/F LABELL [id number] Amilcar Still SPEC NUM: [id number] RECD: 11/08/23 STATUS: PATIENCE ALFREDO NUM: [id number] SHARRI: 11/07/23- SUBM DR: Amilcar Still ENTERED: 11/08/[address] [facility] [address]: Estephania,Lab SPEC TYPE: Surgical DEPT: JUAN CARLOS MEEHAN ENTERED BY: [id number] RECV BY: [id number] ORDERED: HE/2, Gross/Micro L4 ORDERED: HE/2, Gross/Micro [...] performed supporting the above interpretation -------- Specimen: [id number] Received: 11/08/23 Status: PATIENCE Juni Num: [id number] Spec Type: Surgical Subm Dr: Amilcar Still Tissues: A Endometrium - Biopsy (ENDOMETRIAL BX) Procedures: /2, Allyssa/Micro L4 -------- Patient: Briana Mason [id number] (Continued) -------- Specimen: [id number] Received: 11/08/23 (Continued) Signed (signature on file) Javon Nuñez MD 11/10/23 1053 -------- Specimen: [id number] Received: 11/08/23 Status: PATIENCE Alfredo Num: [id number] Spec Type: Surgical Subm Dr: Amilcar Still Tissues: A Endometrium - Biopsy (ENDOMETRIAL BX) Procedures: HE/2, Gross/Micro L4 -------- Patient: Saad Masonelle Kristy [id number] (Continued) -------- Specimen: [id number] Received: 11/08/23 (Continued) CPT Codes 62660 -------- -------- Specimen: [id number] Received: 11/08/23 Status: PATIENCE Alfredo Num: [id number] Spec Type: Surgical Subm Dr: Amilcar Still Tissues: A Endometrium - Biopsy (ENDOMETRIAL BX) Procedures: HE/2, Gross/Micro L4 -------- Patient: Briana Mason [id number] (Continued) -------- Signed (signature on file) Marcus-Solitario Nuñez MD 11/10/23 1053 Normal [facility] US transvaginalon 12-17-2022 [place] [address] Ultrasound Report Signed Patient: Briana Mason MR#: [id number] : 1985 Acct:[id number] Age/Sex: 37 / F ADM Date: 12/17/22 Loc: Room: Type: [facility] Attending Dr: Amilcar Still Ordering Provider: Amilcar Still DO Date of Service: 12/17/22 US/US transvaginal: N93.9 ([id number]) US/US pelvic complete: N93.9 Copies to: Amilcar [...] Norman Concepcion M.D.12/17/2022 5:29 PM Dictation Location: [place] [address] Tech: Ana Eric Transcribed By: RAJ 12/17/221728 Dictated By: Norman Concepcion DO 12/17/221725 Signed By: 12/17/221728 Normal [facility] MM diagnostic mammo BI w/CAD on 12-10-2022 MM diagnostic mammo BI w/CAD [facility] [place] [address] Ultrasound Report Signed Patient: Briana Mason MR#: [id number] : 1985 Acct:[id number] Age/Sex: 37 / F ADM Date: 12/10/22 Loc: [place] Room: Type: [facility] Attending Dr: Amilcar Still Ordering Provider: Amilcar Still DO Date of Service: 12/10/22 MM/MM diagnostic mammo BI w/CAD: SEE ORDER ([id number]) US/US breast LT complete: SEE ORDER Copies [...] Conn Jr., Niko12/10/2022 8:46 AM Dictation Location: [facility] Tech: Jing Pham; Kiarra Braden Transcribed By: RAJ 12/10/22845 Dictated By: Martin Conn Jr, DO 12/10/2244 Signed By: 12/10/22845 Normal [facility] OCC BLD IMMUNO SCREENon 05-09 OCCULT BLOOD Negative Normal NEGATIVE [facility] Comment on above: Performed By: #### H EPBSRF #### [facility] [address] [place] [address] Dr. Yanely Nuñez FERRITINon 05-28-2022 Ferritin [Mass/Vol] 5.0 ng/mL Critically low 6.2-137.0 [facility] Comment on above: Performed By: #### I NICHOLE VITB12, FERR #### [facility] [address] [place] [address] [address] Yanely Nuñez IRONon 05-28-2022 Iron [Mass/Vol] 14.0 ug/dL Critically low 50.0-170.0 [facility] Comment on above: Performed By: #### I NICHOLE VITB12, FERR #### [facility] [address] [place] [address] [address] Yanely Nuñez VITAMIN B12on 05-28-2022 Cobalamin (Vitamin B12) [Mass/Vol] 929.0 pg/mL Normal 193.0-986.0 [facility] Comment on above: Performed By: #### I NICHOLE, VITB12, FERR #### [facility] [address] [place] [address] Dr. Yanely Nuñez CBC AUTO DIFFon 05-27-2022 BASO # 0.0 103/ul Normal 0.0-0.1 [facility] Comment on above: Performed By: #### C BC #### [facility] [address] [place] [address] Dr. Yanely Nuñez Basophils/100 WBC (Bld) 0.1 % Critically low 0.2-2.0 [facility] Comment on above: Performed By: #### C BC #### [facility] [address] [place] [address] Dr. Yanely Nuñez EO # 0.1 103/ul Normal 0.0-0.7 [facility] Comment on above: Performed By: #### C BC #### [facility] [address] [place] [address] Dr. Yanely Nuñez Eosinophils/100 WBC (Bld) 2.0 % Normal 0.9-7.0 [facility] Comment on above: Performed By: #### C BC #### [facility] [address] [place] [address] Dr. Yanely Nuñez Erythrocyte distribution width (RBC) [Ratio] 17.1 % Critically high 11.0-15.0 [facility] Comment on above: Performed By: #### C BC #### [facility] [address] [place] [address] Dr. Yanely Nuñez Hematocrit (Bld) [Volume fraction] 32.1 % Critically low 36.0-48.0 [facility] Comment on above: Performed By: #### C BC #### [facility] [address] [place] [address] Dr. Yanely Nuñez Hemoglobin (Bld) [Mass/Vol] 9.3 g/dL Critically low 12.0-16.0 [facility] Comment on above: Performed By: #### C BC #### [facility] [address] [place] [address] Dr. Yanely Nuñez IG # 0.02 10e3/ul Normal 0.00-0.03 [facility] Comment on above: Performed By: #### C BC #### [facility] [address] [place] [address] Dr. Yanely Nuñez IG % 0.3 % Normal 0.0-0.5 [facility] Comment on above: Performed By: #### C BC #### [facility] [address] [place] [address] Dr. Yanely Nuñez LYMPH # 1.5 103/ul Normal 1.2-3.8 [facility] Comment on above: Performed By: #### C BC #### [facility] [address] [place] [address] Dr. Yanely Nuñez Lymphocytes/100 WBC (Bld) 22.5 % Normal 20.5-60.0 [facility] Comment on above: Performed By: #### C BC #### [facility] [address] [place] [address] Dr. Yanely Nuñez MANUAL DIFF REQ NO Normal [facility] Comment on above: Performed By: #### C BC #### [facility] [address] [place] [address] Dr. Yanely Nuñez MCH (RBC) [Entitic mass] 20.3 pg Critically low 26.7-34.0 [facility] Comment on above: Performed By: #### C BC #### [facility] [address] [place] [address] Dr. Yanely Nuñez MCHC (RBC) [Mass/Vol] 29.0 g/dL Critically low 29.9-35.2 [facility] Comment on above: Performed By: #### C BC #### [facility] [address] [place] [address] Dr. Yanely Nuñez MCV (RBC) [Entitic vol] 70.1 fL Critically low 81.0-99.0 [facility] Comment on above: Performed By: #### C BC #### [facility] [address] [place] [address] Dr. Yanely Nuñez MONO # 0.5 103/ul Normal 0.3-0.8 [facility] Comment on above: Performed By: #### C BC #### [facility] [address] [place] [address] Dr. Yanely Nuñez Monocytes/100 WBC (Bld) 7.0 % Normal 1.7-12.0 [facility] Comment on above: Performed By: #### C BC #### [facility] [address] [place] [address] Dr. Yanely Nuñez NEUT # 4.7 103/ul Normal 1.4-6.5 [facility] Comment on above: Performed By: #### C BC #### [facility] [address] [place] [address] Dr. Yanely Nuñez Neutrophils/100 WBC (Bld) 68.1 % Normal 43.0-75.0 [facility] Comment on above: Performed By: #### C BC #### [facility] [address] [place] [address] Dr. Yanely Nuñez Platelet mean volume (Bld) [Entitic vol] 9.9 fL Normal 9.5-13.[address] [facility] Comment on above: Performed By: #### C BC #### [facility] [address] [place] [address] Dr. Yanely Nuñez PLT 488 103/ul Critically high 150-450 [facility] Comment on above: Performed By: #### C BC #### [facility] [address] [place] [address] Dr. Yanely Nuñez RBC 4.58 106/ul Normal 4.20-5.[address] [facility] Comment on above: Performed By: #### C BC #### [facility] [address] [place] [address] Dr. Yanely Nuñze WBC 6.9 103/ul Normal 4.0-11.0 [facility] Comment on above: Performed By: #### C BC #### [facility] [address] [place] [address] Dr. Yanely Nuñez GLYCOHEMOGLOBIN A1Con 2022 ADA RECOMMENDATION SEE BELOW Normal [facility] Comment on above: Result Comment: ADA RECOMMENDED LIMIT 4.0 - 6.0 ADA THERAPEUTIC TARGET < 7.0 ACTION SUGGESTED > 7.0 Performed By: #### A 1C #### [facility] [address] [place] [address] [address] Yanely Nuñez Glucose [Mass/Vol] 114 mg/dL Normal [facility] Comment on above: Performed By: #### A 1C #### [facility] [address] [place] [address] [address] Yanely Nuñez HbA1c (Bld) [Mass fraction] 5.6 % Normal 4.5-6.2 [facility] Comment on above: Performed By: #### A 1C #### [facility] [address] [place] [address] Dr. Yanely Nuñez LIPID PROFILEon 05-27-2022 CHOL-HDL RATIO NORM SEE BELOW Normal [facility] Comment on above: Result Comment: 3.3 - 4.4 LOW RISK 4.4 - 7.1 AVERAGE RISK 7.1 - 11.0 MODERATE RISK >11.0 HIGH RISK Performed By: #### C MP, LIPID, TSH #### [facility] [address] [place] [address] [address] Yanely Nñuez Cholesterol [Mass/Vol] 207 mg/dL Critically high <=200 [facility] Comment on above: Performed By: #### C MP, LIPID, TSH #### [facility] [address] [place] [address] [address] Yanely Nuñez Cholesterol in HDL [Mass/Vol] 54 mg/dL Normal 40-60 [facility] Comment on above: Performed By: #### C MP, LIPID, TSH #### [facility] [address] [place] [address] [address] Yanely Nuñez Cholesterol in LDL [Mass/Vol] 141.0 mg/dL Normal [facility] Comment on above: Performed By: #### C MP, LIPID, TSH #### [facility] [address] [place] [address] Dr. Yanely Nuñez Cholesterol.total/Ch olesterol in HDL [Mass ratio] 3.8 {ratio} Normal [facility] Comment on above: Performed By: #### C MP, LIPID, TSH #### [facility] [address] [place] [address] [address] Yanely Nuñez HDL NORMAL > or = 60 mg/dl - LO W CARDIOVASCULAR RISK <40 mg/dl - HIGH CARDIOVASCULAR RISK Normal [facility] Comment on above: Performed By: #### C MP, LIPID, TSH #### [facility] [address] [place] [address] [address] Yanely Nuñez LDL CALC NORMAL SEE BELOW Normal [facility] Comment on above: Result Comment: <100 mg/dl OPTIMAL 100 - 129 mg/dl NEAR OR ABOVE OPTIMAL 130 - 159 mg/dl BORDERLINE HIGH 160 - 189 mg/dl HIGH >190 mg/dl VERY HIGH Performed By: #### C MP, LIPID, TSH #### [facility] [address] [place] [address] [address] Yanely Nuñez Triglyceride [Mass/Vol] 60 mg/dL Normal <=150 [facility] Comment on above: Performed By: #### C MP, LIPID, TSH #### [facility] [address] [place] [address] [address] Yanely Nuñez VLDL CALC 12.0 mg/dL Normal [facility] Comment on above: Performed By: #### C MP, LIPID, TSH #### [facility] [address] [address] [address] Yanely Nuñez PROF 14(COMP METB)on 023 Albumin [Mass/Vol] 4.0 g/dL Normal 3.4-5.0 [facility] Comment on above: Performed By: #### C MP, LIPID, TSH #### [facility] [address] [place] [address] [address] Yanely Nuñez Albumin/Globulin [Mass ratio] 1.0 {ratio} Normal [facility] Comment on above: Performed By: #### C MP, LIPID, TSH #### [facility] [address] [place] [address] [address] Yanely Nuñez ALP [Catalytic activity/Vol] 57 U/L Normal 46-116 [facility] Comment on above: Performed By: #### C MP, LIPID, TSH #### [facility] [address] [place] [address] [address] Yanely Nuñez ALT [Catalytic activity/Vol] 111 U/L Critically high 14-59 [facility] Comment on above: Performed By: #### C MP, LIPID, TSH #### [facility] [address] [place] [address] [address] Yanely Nuñez Anion gap [Moles/Vol] 13.1 mmol/L Normal [facility] Comment on above: Performed By: #### C MP, LIPID, TSH #### [facility] [address] [place] [address] [address] Yanely Nuñez AST [Catalytic activity/Vol] 34 U/L Normal 15-37 [facility] Comment on above: Performed By: #### C MP, LIPID, TSH #### [facility] [address] [place] [address] [address] Yanely Nuñez Bilirubin [Mass/Vol] 0.4 mg/dL Normal 0.2-1.0 [facility] Comment on above: Performed By: #### C MP, LIPID, TSH #### [facility] [address] [place] [address] [address] Yanely Nuñez Calcium [Mass/Vol] 9.5 mg/dL Normal 8.5-10.1 [facility] Comment on above: Performed By: #### C MP, LIPID, TSH #### [facility] [address] [place] [address] [address] Yanely Nuñez Chloride [Moles/Vol] 104 mmol/L Normal 98-107 [facility] Comment on above: Performed By: #### C MP, LIPID, TSH #### [facility] [address] [address] [address] Yanely Nuñez CO2 [Moles/Vol] 27.2 mmol/L Normal 21.0-32.0 [facility] Comment on above: Performed By: #### C MP, LIPID, TSH #### [facility] [address] [place] [address] [address] Yanely Nuñez Creatinine [Mass/Vol] 0.76 mg/dL Normal 0.55-1.02 [facility] Comment on above: Performed By: #### C MP, LIPID, TSH #### [facility] [address] [place] [address] [address] Yanely Nuñez EGFR-AF PRYDEINIG >60 Normal >=60 [facility] Comment on above: Performed By: #### C MP, LIPID, TSH #### [facility] [address] [place] [address] [address] Yanely Nuñez EGFR-NON AF PRYDEINIG >60 Normal >=60 [facility] Comment on above: Performed By: #### C MP, LIPID, TSH #### [facility] [address] [place] [address] [address] Yanely Nuñez Globulin (S) [Mass/Vol] 4.0 g/dL Normal [facility] Comment on above: Performed By: #### C MP, LIPID, TSH #### [facility] [address] [address] [address] Yanely Nuñez Glucose [Mass/Vol] 86 mg/dL Normal 74-106 [facility] Comment on above: Performed By: #### C MP, LIPID, TSH #### [facility] [address] [address] [address] Yanely Nuñez Potassium [Moles/Vol] 4.3 mmol/L Normal 3.5-5.1 [facility] Comment on above: Performed By: #### C MP, LIPID, TSH #### [facility] [address] [address] [address] Yanely Nuñez Protein [Mass/Vol] 8.0 g/dL Normal 6.4-8.2 [facility] Comment on above: Performed By: #### C MP, LIPID, TSH #### [facility] [address] [address] [address] Yanely Nuñez Sodium [Moles/Vol] 140 mmol/L Normal 136-145 [facility] Comment on above: Performed By: #### C MP, LIPID, TSH #### [facility] [address] [address] [address] Yaneyl Nuñez Urea nitrogen [Mass/Vol] 13.0 mg/dL Normal 7.0-18.0 [facility] Comment on above: Performed By: #### C MP, LIPID, TSH #### [facility] [address] [place] [address] Dr. Yanely Nuñez Urea nitrogen/Creatinine [Mass ratio] 17.1 mg/mg Normal [facility] Comment on above: Performed By: #### C MP, LIPID, TSH #### [facility] [address] [place] [address] Dr. Yanely Nuñez TSHon 05-27-2022 TSH 0.862 uIU/mL Normal 0.358-3.740 [facility] Comment on above: Performed By: #### C MP, LIPID, TSH #### [facility] [address] [place] [address] Dr. Yanely Nuñez QUANTIFERON TB GOLD PLUSon 1 QuantiFERON Criteria Comment Normal [facility] Comment on above: Result Comment: Leoncio tiFERON-TB [...] #### H EPBSRF #### [facility] [address] [place] [address] Dr. Yanely Nuñez QuantiFERON Incubation Incubation performed. Normal [facility] Comment on above: Performed By: #### H EPBSRF #### [facility] [address] [place] [address] Dr. Yanely Nuñez QuantiFERON Mitogen Value >10.00 Normal [facility] Comment on above: Performed By: #### H EPBSRF #### [facility] [address] [place] [address] Dr. Yanely Nuñez QuantiFERON Nil Value 0.03 IU/mL [facility] Comment on above: Performed By: #### H EPBSRF #### [facility] [address] [place] [address] Dr. Yanely Nuñez QuantiFERON TB1 Ag Value 0.04 IU/mL Normal [facility] Comment on above: Performed By: #### H EPBSRF #### [facility] [address] [place] [address] Dr. Yanely Nuñez QuantiFERON TB2 Ag Value 0.03 IU/mL Normal [facility] Comment on above: Performed By: #### H EPBSRF #### [facility] [address] [place] [address] Dr. Yanely Nuñez QuantiFERON-TB Gold Plus Negative Normal Negative [facility] Comment on above: Result Comment: No r esponse to M tuberculosis antigens detected. Infection with M tuberculosis is unlikely, but high risk individuals should be considered for additional testing (ATS/IDSA/CDC Clinical Practice Guidelines, 2017). The reference range is an Antigen minus Nil result of <0.35 IU/mL. Chemiluminescence immunoassay methodology Performed By: #### H EPBSRF #### [facility] [address] [place] [address] Dr. Yanely Nuñez HEPATITIS B SURFACE ANTIBODY , QUANTon 02-05-2022 Hepatitis B Surf AB Quant >1000.0 Normal Immunity>9.[address] [facility] Comment on above: Result Comment: Stat us of Immunity Anti-HBs Level Inconsistent with Immunity 0.0 - 9.9 Consistent with Immunity >9.9 Performed By: #### H EPBSRF #### [facility] [address] [place] [address] Dr. Yanely Nuñez MMR IMMUNITYon 02-05-2022 Mumps Abs, IgG 56.4 AU/mL Normal Immune >10.9 [facility] Comment on above: Result Comment: Nega tive <9.0 Equivocal 9.0 - 10.9 Positive >10.9 A positive result generally indicates past exposure to Mumps virus or previous vaccination. Performed By: #### H EPBSRF #### [facility] [address] [place] [address] Dr. Yanely Nuñez Rubella Antibodies, IgG 2.90 index Normal Immune >0.99 [facility] Comment on above: Result Comment: Non- immune <0.90 Equivocal 0.90 - 0.99 Immune >0.99 Performed By: #### H EPBSRF #### [facility] [address] [place] [address] Dr. Yanely Nuñez Rubeola Ab, IgG 183.0 AU/mL Normal Immune >16.4 [facility] Comment on above: Result Comment: Nega tive <13.5 Equivocal 13.5 - 16.4 Positive >16.4 Presence of antibodies to Rubeola is presumptive evidence of immunity except when acute infection is suspected. Performed By: #### H EPBSRF #### [facility] [address] [place] [address] Dr. Yanely Nuñez VARICELLA IGG ABon 2 Varicella Zoster IgG 483 index Normal Immune >165 [facility] Comment on above: Result Comment: Nega tive <135 Equivocal 135 - 165 Positive >165 A positive result generally indicates exposure to the pathogen or administration of specific immunoglobulins, but it is not indication of active infection or stage of disease. Performed By: #### H EPBSRF #### [facility] [address] [place] [address] Dr. Yanely Nuñez PAP ACOG PANEL 2: 30 to 65on 11-25-2021 . . Normal [facility] Comment on above: Result Comment: Perf ormed at: WB Performed By: #### [id number] #### [facility] [address] [place] [address] Dr. Yanely Nuñez Age Gdln ACOG Testing Normal [facility] Comment on above: Performed By: #### [id number] #### [facility] [address] [place] [address] Dr. Yanely Nuñez DIAGNOSIS: Comment Normal [facility] Comment on above: Result Comment: NEGA TIVE FOR INTRAEPITHELIAL LESION OR MALIGNANCY. Performed at: WB Performed By: #### [id number] #### [facility] [address] [place] [address] Dr. Yanely Nuñez HPV Aptima Negative Normal Negative [facility] Comment on above: Result Comment: This nucleic acid amplification test detects fourteen high-risk HPV types (16,18,31,33,35,39,45,51,52,56,58,59,66,68) without differentiation. Performed at: =G Performed By: #### [id number] #### [facility] [address] [place] [address] Dr. Yanely Nuñez Methodology: Comment Normal [facility] Comment on above: Result Comment: This liquid based ThinPrep(R) pap test was screened with the use of an image guided system. Performed at: WB Performed By: #### [id number] #### [facility] [address] [place] [address] Dr. Yanely Nuñez Note: Comment Normal [facility] Comment on above: Result Comment: The Pap smear is a screening test designed to aid in the detection of premalignant and malignant conditions of the uterine cervix. It is not a diagnostic procedure and should not be used as the sole means of detecting cervical cancer. Both false-positive and false-negative reports do occur. . Performed at: WB Performed By: #### [id number] #### [facility] [address] [place] [address] Dr. Yanely Nuñez Performed by: Comment Normal [facility] Comment on above: Result Comment: Darlin Cline, Arm Rest Builder (ASCP) Performed at: WB Performed By: #### [id number] #### [facility] [address] [place] [address] Dr. Yanely Nuñez Specimen adequacy: Comment Normal [facility] Comment on above: Result Comment: Sati sfactory for evaluation. Endocervical and/or squamous metaplastic cells (endocervical component) are present. Performed at: WB Performed By: #### [id number] #### [facility] [address] [place] [address] Dr. Yanely Nuñez Vital Signs Date Time Vital Sign Value Performing Clinician Yajaira bradley 11-21-2023 19:00-0400 Body height 162.6 cm Danii Daly NP Work Phone: [facility] 11-21-2023 19:00-0400 Body mass index (BMI) [Ratio] 29.9 kg/m2 Danii Marshbridget RAIL 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: [facility] 11-21-2023 19:00-0400 Body temperature 99.7 [degF] Danii Urenagabby RAIL 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: [facility] 11-21-2023 19:00-0400 Body weight 79.02 kg Danii Addy RAIL 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: [facility] 11-21-2023 19:00-0400 Diastolic blood pressure 76 mm[Hg] Danii Addy RAIL 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: [facility] 11-21-2023 19:00-0400 Heart rate 110 /min Danii Addy RAIL 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: [facility] 11-21-2023 19:00-0400 Respiratory rate 19 /min Danii Addy RAIL 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: [facility] 11-21-2023 19:00-0400 SaO2% (BldA) [Mass fraction] 96 % Danii Urenagabby RAIL 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: [facility] 11-21-2023 19:00-0400 Systolic blood pressure 132 mm[Hg] Danii Urenagabby RAIL 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: [facility] Healthcare Encounters Encounter Date Encounter Type Care Provider Facility Start: 12-14-2023 End: 12-14-2023 Clinisync Result Encounter Amilcar Guy DO Work Phone: [facility] External Department Unsolicited Start: 12-14-2023 End: 12-14-2023 Clinisync Result Encounter Amilcar Guy DO Work Phone: [facility] External Department Unsolicited Start: 11-21-2023 End: 11-21-2023 Office outpatient visit 15 minutes Danii Addy RAIL 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: [facility] Comment on above: Acute bronchitis due to other specified organisms (Primary Dx) Start: 11-21-2023 End: 11-21-2023 ambulatory DANIINasrin DALY Not Available Start: 11-21-2023 End: 11-21-2023 Bamboo flowsheet Danii Addy RAIL 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: [facility] Start: 11-21-2023 End: 11-21-2023 Bamboo flowsheet Danii Addy RAIL 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: [facility] Start: 11-14-2023 End: 11-14-2023 Clinisync Result Encounter Generic External Data Provider [facility] External Department Unsolicited Start: 11-14-2023 End: 11-14-2023 Clinisync Result Encounter Generic External Data Provider [facility] External Department Unsolicited Start: 11-07-2023 End: 11-07-2023 ambulatory Danii Valdez Addy Work Phone: [facility] Work Phone: Start: 11-07-2023 End: 11-07-2023 Departed Referred Danii Addy Work Phone: [facility]-LAB [facility] [place] [facility] Start: 01-26-2023 End: 01-26-2023 ambulatory AMILCAR GUY Not Available Start: 12-17-2022 End: 12-17-2022 Patient encounter procedure Danii Addy Work Phone: [facility]-Ultrasound [facility] [place] Work Phone: Start: 12-17-2022 End: 12-17-2022 ambulatory Danii Valdez Addy Work Phone: [facility] Work Phone: Start: 12-10-2022 End: 12-10-2022 Patient encounter procedure Danii Addy Work Phone: [facility] Work Phone: Start: 12-10-2022 End: 12-10-2022 ambulatory Danii Valdez Addy Work Phone: [facility] Work Phone: Start: 05-31-2022 Encounter for genera l adult medical examination without abnormal findings NAYELY DALY [facility] Start: 05-30-2022 End: 05-30-2022 ambulatory NAYELY DALY Facility:[facility] Start: 05-28-2022 End: 05-29-2022 ambulatory NAYELY DALY Facility:[facility] Start: 05-27-2022 End: 05-28-2022 ambulatory MOVIE CRITIC DANII DALY Facility:[facility] Start: 05-27-2022 End: 05-28-2022 [...] Phone: Start: 12-10-2022 Bilateral mammography L evelyn Ayannaraisaderick Work Phone: Plan of Treatment Date Care Activity Detail Author Start: 12-20-2023 End: 12-20-2023 Patient encounter procedure 12/20/2023 6:00 AM EST Procedure Visit [facility] Amilcar Still, [address] [place] [address] [facility] Start: 11-24-2023 End: 11-24-2023 Patient encounter procedure 11/24/2023 1:00 PM EDT Procedure Visit [facility] Amilcar Still, DO [address] [place] [address] [place] [address] [facility] Start: 11-21-2023 End: 11-21-2023 Patient encounter procedure 11/21/2023 7:00 PM EDT Office Visit [facility] [address] [place] [address] Danii Daly, DAMASO [address] [place] [id number] Arrived [facility] Comment on above: Arrived Start: 10-09-2023 Influenza vaccination Influenza Vacc ine (#1) [facility] Start: 06-23-2015 Screening for malign ant neoplasm of cervix [facility] Healthcare Start: 2006 Screening for malign ant neoplasm of cervix Pap Smear [facility] Payers Date Payer Category Payer [facility] [place] [id number] 1985 Unknown [id number] 2.16.84 [id number] 1985 Unknown [id number] 2.16.84 [id number] 1985 Unknown [id number] 2.16.84 [id number] 1985 Unknown [id number] 2.16.84 [id number] 1985 Unknown [id number] [id number] 1985 Unknown [id number] [id number] 1985 Unknown [id number] [id number] .[id number] 02-07-1959 Private Health Insurance [id number] 02-07-1959 Private Health Insurance [id number] 02-07-1959 Self-pay Unknown [id number] 2.16.84 [id number] Unknown [id number] [id number] Unknown [id number] [id number] Unknown [id number] Social History Date Type Detail Facility Tobacco smoking stat [facility] Unknown if ever smoked [facility] Work Phone: Start: 1985 Sex Assigned At Female [facility] Tobacco smoking stat [facility] Tobacco smoking consumption unknown [facility] Start: 11-15-2022 Gender identity Identifies as female gender (finding) [facility] Start: 11-15-2022 Sexual orientation Heterosexual (finding) [facility] Healthcare History of Present illness Narrative [...] when breathing. 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 Start Date End Date John Alicia MD [address] [place] [id number] PCP - General Family Medicine 11/21/23 Danii Daly NP [address] [place] [phone] Nurse Practitioner Family Medicine 11/21/23 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 [facility]. provides no warranty or guarantee of the accuracy or completeness of information in this document.
[2023-12-22 07:31] VITALS: BP 117/68; PULSE 96; TEMP 36.7; O2SAT 92
[2023-12-22] MEDS: DOCUSATE SODIUM 100 MG CAPSULE PO (08:15)
[2023-12-22] MEDS: ENOXAPARIN SODIUM 40 MG/0.4 ML SYRINGE SUBQ (08:15)
--- OUTSIDE RECORDS SUMMARY | 2023-12-22 09:14 | XMS_ITS | CCD ---
Author Organization [facility] Care Team Providers Care Food Writer Name Role Phone PHONG OSEI Attending Unavailable PHONG OSEI Consulting Unavailable PHONG OSEI Admitting Unavailable REQUEST, NONE LISTED Primary Care Unavaila ble AICHHOLZ, BEAN DUMPER DANII Admitting Unavailable AICHHOLZ, BEAN DUMPER DANII Attending Unavailable AICHHOLZ, BEAN DUMPER DANII Consulting Unavailable AICHHOLZ, BEAN DUMPER DANII Primary Care Unavailable AICHHOLZ, BEAN DUMPER DANII Admitting Unavailable AICHHOLZ, BEAN DUMPER DANII Attending Unavailable AICHHOLZ, BEAN DUMPER DANII Consulting Unavailable AICHHOLZ, BEAN DUMPER DANII Primary Care Unavailable AICHHOLZ, BEAN DUMPER DANII Attending Unavailable AICHHOLZ, BEAN DUMPER DANII Consulting Unavailable AICHHOLZ, BEAN DUMPER DANII Primary Care Unavailable AICHHOLZ, BEAN DUMPER DANII Admitting Unavailable AMILCAR STILL Attending Unavailable AMILCAR STILL Consulting Unavailable AMILCAR STILL Admitting Unavailable REQUEST, NONE LISTED Primary Care Unavaila ble Amilcar Still Attending Provider [phone] Danii Daly Primary Care Provider [phone] Danii Daly Referring Provider Amilcar Still Attending Provider Danii Daly Primary Care Provider [phone] Danii Daly Referring Provider Danii Daly Primary [...] Drug Class(es) Dates Sig (Normalized) Sig (Original) [id number] 200 actuat albuterol 0.09 mg/actuat metered dose [...] Nom (Bld) Blood group O Rh(D) negative [facility] , [facility] ALL CBC WITH AUTO DIFFon BASOPHILS ABSOLUTE AUTO 0.0 [facility] Basophils/100 WBC (Bld) 0.3 % 0.2 - 2.0 % [facility] Eosinophils/100 WBC (Bld) 4.5 % 0.9 - 7.0 % [facility] Erythrocyte distribution width (RBC) [Ratio] 12.6 % 11.0 - 15.0 % [facility] Hematocrit (Bld) [Volume fraction] 44.5 % 36.0 - 48.0 % [facility] Hemoglobin (Bld) [Mass/Vol] 14.7 g/dL 12.0 - 16.0 g/dL [facility] IMMATURE GRANULOCYTES ABS AUTO 0.02 [facility] Immature granulocytes/100 WBC (Bld) 0.3 % 0.0 - 0.5 % [facility] LYMPHOCYTES ABSOLUTE AUTO 1.9 [facility] Lymphocytes/100 WBC (Bld) 27.5 % 20.5 - 60.0 % [facility] MCH (RBC) [Entitic mass] 29.3 pg 26.7 - 34.0 pg [facility] MCHC (RBC) [Mass/Vol] 33.0 g/dL 29.9 - 35.2 g/dL [facility] MCV (RBC) [Entitic vol] 88.6 fL 81.0 - 99.0 fL [facility] MONOCYTES ABSOLUTE AUTO 0.5 [facility] Monocytes/100 WBC (Bld) 6.8 % 1.7 - 12.0 % [facility] NEUTROPHILS ABSOLUTE AUTO 4.3 [facility] Neutrophils/100 WBC (Bld) 60.6 % 43.0 - 75.0 % [facility] Platelet mean volume (Bld) [Entitic vol] 9.6 fL 9.5 - 13.5 fL [facility] EO # 0.3 [facility] PLT 327 [facility] RBC 5.02 [facility] WBC 7.1 [facility] Apollo 11-07-2023 L Specimen: [id number] Received: 11/08/23 Status: PATIENCE Alfredo Num: [id number] Spec Type: Surgical Subm Dr: Amilcar Still Tissues: A Endometrium - Biopsy (ENDOMETRIAL BX) Procedures: HE/2, Gross/Micro L4 Age/ Patient Sex Location Account Attending Physician Briana Mason 38/F LABELL [id number] Amilcar Still SPEC NUM: [id number] RECD: 11/08/23 STATUS: PATIENCE ALFREDO NUM: [id number] SHARRI: 11/07/23- SUBM DR: Amilcar Still ENTERED: 11/08/[address] [facility] DR: Estephania,Lab SPEC TYPE: Surgical DEPT: JUAN CARLOS MEEHAN ENTERED BY: [id number] RECV BY: [id number] ORDERED: HE/2, Gross/Micro L4 ORDERED: HE/2, Gross/Micro [...] performed supporting the above interpretation -------- Specimen: [id number] Received: 11/08/23 Status: PATIENCE Juni Num: [id number] Spec Type: Surgical Subm Dr: Amilcar Still Tissues: A Endometrium - Biopsy (ENDOMETRIAL BX) Procedures: /2, Allyssa/Micro L4 -------- Patient: Briana Mason [id number] (Continued) -------- Specimen: [id number] Received: 11/08/23 (Continued) Signed (signature on file) Javon Nuñez MD 11/10/23 1053 -------- Specimen: [id number] Received: 11/08/23 Status: PATIENCE Alfredo Num: [id number] Spec Type: Surgical Subm Dr: Amilcar Still Tissues: A Endometrium - Biopsy (ENDOMETRIAL BX) Procedures: HE/2, Gross/Micro L4 -------- Patient: Saad Masonelle Kristy [id number] (Continued) -------- Specimen: [id number] Received: 11/08/23 (Continued) CPT Codes 06052 -------- -------- Specimen: [id number] Received: 11/08/23 Status: PATIENCE Alfredo Num: [id number] Spec Type: Surgical Subm Dr: Amilcar Still Tissues: A Endometrium - Biopsy (ENDOMETRIAL BX) Procedures: HE/2, Gross/Micro L4 -------- Patient: Briana Mason [id number] (Continued) -------- Signed (signature on file) Marcus-Solitario Nuñez MD 11/10/23 1053 Normal [facility] US transvaginalon 12-17-2022 [place] [address] Ultrasound Report Signed Patient: Briana Mason MR#: [id number] : 1985 Acct:[id number] Age/Sex: 37 / F ADM Date: 12/17/22 Loc: Room: Type: [facility] Attending Dr: Amilcar Still Ordering Provider: Amilcar Still DO Date of Service: 12/17/22 US/US transvaginal: N93.9 ([id number]) US/US pelvic complete: N93.9 Copies to: Amilcar [...] Norman Concepcion M.D.12/17/2022 5:29 PM Dictation Location: [place] [address] Tech: Ana Eric Transcribed By: RAJ 12/17/221728 Dictated By: Norman Concepcion DO 12/17/221725 Signed By: 12/17/221728 Normal [facility] MM diagnostic mammo BI w/CAD on 12-10-2022 MM diagnostic mammo BI w/CAD [facility] [place] [address] Ultrasound Report Signed Patient: Briana Mason MR#: [id number] : 1985 Acct:[id number] Age/Sex: 37 / F ADM Date: 12/10/22 Loc: IN Room: Type: [facility] Attending Dr: Amilcar Still Ordering Provider: Amilcar Still DO Date of Service: 12/10/22 MM/MM diagnostic mammo BI w/CAD: SEE ORDER ([id number]) US/US breast LT complete: SEE ORDER Copies [...] Conn Jr., Niko12/10/2022 8:46 AM Dictation Location: [facility] Tech: Jing Pham; Kiarra Braden Transcribed By: RAJ 12/10/22845 Dictated By: Martin Conn Jr, DO 12/10/2244 Signed By: 12/10/22845 Normal [facility] OCC BLD IMMUNO SCREENon 05-09 OCCULT BLOOD Negative Normal NEGATIVE [facility] Comment on above: Performed By: #### H EPBSRF #### [facility] [address] [place] [address] Dr. Yanely Nuñez FERRITINon 05-28-2022 Ferritin [Mass/Vol] 5.0 ng/mL Critically low 6.2-137.0 [facility] Comment on above: Performed By: #### I NICHOLE VITB12, FERR #### [facility] [address] [address] [address] Yanely Nuñez IRONon 05-28-2022 Iron [Mass/Vol] 14.0 ug/dL Critically low 50.0-170.0 [facility] Comment on above: Performed By: #### I NICHOLE VITB12, FERR #### [facility] [address] [address] [address] Yanely Nuñez VITAMIN B12on 05-28-2022 Cobalamin (Vitamin B12) [Mass/Vol] 929.0 pg/mL Normal 193.0-986.0 [facility] Comment on above: Performed By: #### I NICHOLE, VITB12, FERR #### [facility] [address] [place] [address] Dr. Yanely Nuñez CBC AUTO DIFFon 05-27-2022 BASO # 0.0 103/ul Normal 0.0-0.1 [facility] Comment on above: Performed By: #### C BC #### [facility] [address] [place] [address] Dr. Yanely Nuñez Basophils/100 WBC (Bld) 0.1 % Critically low 0.2-2.0 [facility] Comment on above: Performed By: #### C BC #### [facility] [address] [place] [address] Dr. Yanely Nuñez EO # 0.1 103/ul Normal 0.0-0.7 [facility] Comment on above: Performed By: #### C BC #### [facility] [address] [place] [address] Dr. Yanely Nuñez Eosinophils/100 WBC (Bld) 2.0 % Normal 0.9-7.0 [facility] Comment on above: Performed By: #### C BC #### [facility] [address] [place] [address] Dr. Yanely Nuñez Erythrocyte distribution width (RBC) [Ratio] 17.1 % Critically high 11.0-15.0 [facility] Comment on above: Performed By: #### C BC #### [facility] [address] [place] [address] Dr. Yanely Nuñez Hematocrit (Bld) [Volume fraction] 32.1 % Critically low 36.0-48.0 [facility] Comment on above: Performed By: #### C BC #### [facility] [address] [place] [address] Dr. Yanely Nuñez Hemoglobin (Bld) [Mass/Vol] 9.3 g/dL Critically low 12.0-16.0 [facility] Comment on above: Performed By: #### C BC #### [facility] [address] [place] [address] Dr. Yanely Nuñez IG # 0.02 10e3/ul Normal 0.00-0.03 [facility] Comment on above: Performed By: #### C BC #### [facility] [address] [place] [address] Dr. Yanely Nuñez IG % 0.3 % Normal 0.0-0.5 [facility] Comment on above: Performed By: #### C BC #### [facility] [address] [place] [address] Dr. Yanely Nuñez LYMPH # 1.5 103/ul Normal 1.2-3.8 [facility] Comment on above: Performed By: #### C BC #### [facility] [address] [place] [address] Dr. Yanely Nuñez Lymphocytes/100 WBC (Bld) 22.5 % Normal 20.5-60.0 [facility] Comment on above: Performed By: #### C BC #### [facility] [address] [place] [address] Dr. Yanely Nuñez MANUAL DIFF REQ NO Normal [facility] Comment on above: Performed By: #### C BC #### [facility] [address] [place] [address] Dr. Yanely Nuñez MCH (RBC) [Entitic mass] 20.3 pg Critically low 26.7-34.0 [facility] Comment on above: Performed By: #### C BC #### [facility] [address] [place] [address] Dr. Yanely Nuñez MCHC (RBC) [Mass/Vol] 29.0 g/dL Critically low 29.9-35.2 [facility] Comment on above: Performed By: #### C BC #### [facility] [address] [place] [address] Dr. Yanely Nuñez MCV (RBC) [Entitic vol] 70.1 fL Critically low 81.0-99.0 [facility] Comment on above: Performed By: #### C BC #### [facility] [address] [place] [address] Dr. Yanely Nuñez MONO # 0.5 103/ul Normal 0.3-0.8 [facility] Comment on above: Performed By: #### C BC #### [facility] [address] [place] [address] Dr. Yanely Nuñez Monocytes/100 WBC (Bld) 7.0 % Normal 1.7-12.0 [facility] Comment on above: Performed By: #### C BC #### [facility] [address] [place] [address] Dr. Yanely Nuñez NEUT # 4.7 103/ul Normal 1.4-6.5 [facility] Comment on above: Performed By: #### C BC #### [facility] [address] [place] [address] Dr. Yanely Nuñez Neutrophils/100 WBC (Bld) 68.1 % Normal 43.0-75.0 [facility] Comment on above: Performed By: #### C BC #### [facility] [address] [place] [address] Dr. Yanely Nuñez Platelet mean volume (Bld) [Entitic vol] 9.9 fL Normal 9.5-13.5 [facility] Comment on above: Performed By: #### C BC #### [facility] [address] [place] [address] Dr. Yanely Nuñez PLT 488 103/ul Critically high 150-450 [facility] Comment on above: Performed By: #### C BC #### [facility] [address] [place] [address] Dr. Yanely Nuñez RBC 4.58 106/ul Normal 4.20-5.40 [facility] Comment on above: Performed By: #### C BC #### [facility] [address] [place] [address] Dr. Yanely Nuñez WBC 6.9 103/ul Normal 4.0-11.0 [facility] Comment on above: Performed By: #### C BC #### [facility] [address] [place] [address] Dr. Yanely Nuñez GLYCOHEMOGLOBIN A1Con 2022 ADA RECOMMENDATION SEE BELOW Normal [facility] Comment on above: Result Comment: ADA RECOMMENDED LIMIT 4.0 - 6.0 ADA THERAPEUTIC TARGET < 7.0 ACTION SUGGESTED > 7.0 Performed By: #### A 1C #### [facility] [address] [address] [address] Yanely Nuñez Glucose [Mass/Vol] 114 mg/dL Normal [facility] Comment on above: Performed By: #### A 1C #### [facility] [address] [address] [address] Yanely Nuñez HbA1c (Bld) [Mass fraction] 5.6 % Normal 4.5-6.2 [facility] Comment on above: Performed By: #### A 1C #### [facility] [address] [place] [address] Dr. Yanely Nuñez LIPID PROFILEon 05-27-2022 CHOL-HDL RATIO NORM SEE BELOW Normal [facility] Comment on above: Result Comment: 3.3 - 4.4 LOW RISK 4.4 - 7.1 AVERAGE RISK 7.1 - 11.0 MODERATE RISK >11.0 HIGH RISK Performed By: #### C MP, LIPID, TSH #### [facility] [address] [address] [address] Yanely Nuñez Cholesterol [Mass/Vol] 207 mg/dL Critically high <=200 [facility] Comment on above: Performed By: #### C MP, LIPID, TSH #### [facility] [address] [address] [address] Yanely Nuñez Cholesterol in HDL [Mass/Vol] 54 mg/dL Normal 40-60 [facility] Comment on above: Performed By: #### C MP, LIPID, TSH #### [facility] [address] [address] [address] Yanely Nuñez Cholesterol in LDL [Mass/Vol] 141.0 mg/dL Normal [facility] Comment on above: Performed By: #### C MP, LIPID, TSH #### [facility] [address] [place] [address] Dr. Yanely Nuñez Cholesterol.total/Ch olesterol in HDL [Mass ratio] 3.8 {ratio} Normal [facility] Comment on above: Performed By: #### C MP, LIPID, TSH #### [facility] [address] [address] [address] Yanely Nuñez HDL NORMAL > or = 60 mg/dl - LO W CARDIOVASCULAR RISK <40 mg/dl - HIGH CARDIOVASCULAR RISK Normal [facility] Comment on above: Performed By: #### C MP, LIPID, TSH #### [facility] [address] [address] [address] Yanely Nuñez LDL CALC NORMAL SEE BELOW Normal [facility] Comment on above: Result Comment: <100 mg/dl OPTIMAL 100 - 129 mg/dl NEAR OR ABOVE OPTIMAL 130 - 159 mg/dl BORDERLINE HIGH 160 - 189 mg/dl HIGH >190 mg/dl VERY HIGH Performed By: #### C MP, LIPID, TSH #### [facility] [address] [address] [address] Yanely Nuñez Triglyceride [Mass/Vol] 60 mg/dL Normal <=150 [facility] Comment on above: Performed By: #### C MP, LIPID, TSH #### [facility] [address] [address] [address] Yanely Nuñez VLDL CALC 12.0 mg/dL Normal [facility] Comment on above: Performed By: #### C MP, LIPID, TSH #### [facility] [address] [address] [address] Yanely Nuñez PROF 14(COMP METB)on 023 Albumin [Mass/Vol] 4.0 g/dL Normal 3.4-5.0 [facility] Comment on above: Performed By: #### C MP, LIPID, TSH #### [facility] [address] [address] [address] Yanely Nuñez Albumin/Globulin [Mass ratio] 1.0 {ratio} Normal [facility] Comment on above: Performed By: #### C MP, LIPID, TSH #### [facility] [address] [address] [address] Yanely Nuñez ALP [Catalytic activity/Vol] 57 U/L Normal 46-116 [facility] Comment on above: Performed By: #### C MP, LIPID, TSH #### [facility] [address] [address] [address] Yanely Nuñez ALT [Catalytic activity/Vol] 111 U/L Critically high 14-59 [facility] Comment on above: Performed By: #### C MP, LIPID, TSH #### [facility] [address] [address] [address] Yanely Nuñez Anion gap [Moles/Vol] 13.1 mmol/L Normal [facility] Comment on above: Performed By: #### C MP, LIPID, TSH #### [facility] [address] [address] [address] Yanely Nuñez AST [Catalytic activity/Vol] 34 U/L Normal 15-37 [facility] Comment on above: Performed By: #### C MP, LIPID, TSH #### [facility] [address] [address] [address] Yanely Nuñez Bilirubin [Mass/Vol] 0.4 mg/dL Normal 0.2-1.0 [facility] Comment on above: Performed By: #### C MP, LIPID, TSH #### [facility] [address] [address] [address] Yanely Nuñez Calcium [Mass/Vol] 9.5 mg/dL Normal 8.5-10.1 [facility] Comment on above: Performed By: #### C MP, LIPID, TSH #### [facility] [address] [address] [address] Yanely Nuñez Chloride [Moles/Vol] 104 mmol/L Normal 98-107 [facility] Comment on above: Performed By: #### C MP, LIPID, TSH #### [facility] [address] [address] [address] Yanely Nuñez CO2 [Moles/Vol] 27.2 mmol/L Normal 21.0-32.0 [facility] Comment on above: Performed By: #### C MP, LIPID, TSH #### [facility] [address] [address] [address] Yanely Nuñez Creatinine [Mass/Vol] 0.76 mg/dL Normal 0.55-1.02 [facility] Comment on above: Performed By: #### C MP, LIPID, TSH #### [facility] [address] [address] [address] Yanely Nuñez EGFR-AF BOLIVIAN >60 Normal >=60 [facility] Comment on above: Performed By: #### C MP, LIPID, TSH #### [facility] [address] [address] [address] Yanely Nuñez EGFR-NON AF BOLIVIAN >60 Normal >=60 [facility] Comment on above: Performed By: #### C MP, LIPID, TSH #### [facility] [address] [address] [address] Yanely Nuñez Globulin (S) [Mass/Vol] 4.0 g/dL Normal [facility] Comment on above: Performed By: #### C MP, LIPID, TSH #### [facility] [address] [address] [address] Yanely Nuñez Glucose [Mass/Vol] 86 mg/dL Normal 74-106 [facility] Comment on above: Performed By: #### C MP, LIPID, TSH #### [facility] [address] [address] [address] Yanely Nuñez Potassium [Moles/Vol] 4.3 mmol/L Normal 3.5-5.1 [facility] Comment on above: Performed By: #### C MP, LIPID, TSH #### [facility] [address] [address] [address] Yanely Nuñez Protein [Mass/Vol] 8.0 g/dL Normal 6.4-8.2 [facility] Comment on above: Performed By: #### C MP, LIPID, TSH #### [facility] [address] [address] [address] Yanely Nuñez Sodium [Moles/Vol] 140 mmol/L Normal 136-145 [facility] Comment on above: Performed By: #### C MP, LIPID, TSH #### [facility] [address] [address] [address] Yanely Nuñez Urea nitrogen [Mass/Vol] 13.0 mg/dL Normal 7.0-18.0 [facility] Comment on above: Performed By: #### C MP, LIPID, TSH #### [facility] [address] [place] [address] Dr. Yanely Nuñez Urea nitrogen/Creatinine [Mass ratio] 17.1 mg/mg Normal [facility] Comment on above: Performed By: #### C MP, LIPID, TSH #### [facility] [address] [place] [address] Dr. Yanely Nuñez TSHon 05-27-2022 TSH 0.862 uIU/mL Normal 0.358-3.740 [facility] Comment on above: Performed By: #### C MP, LIPID, TSH #### [facility] [address] [place] [address] Dr. Yanely Nuñez QUANTIFERON TB GOLD PLUSon 1 QuantiFERON Criteria Comment Normal [facility] Comment on above: Result Comment: Leoncio tiFERON-TB [...] test. Performed By: #### H EPBSRF #### [facility] [address] [place] [address] Dr. Yanely Nuñez QuantiFERON Incubation Incubation performed. Normal [facility] Comment on above: Performed By: #### H EPBSRF #### [facility] [address] [place] [address] Dr. Yanely Nuñez QuantiFERON Mitogen Value >10.00 Normal [facility] Comment on above: Performed By: #### H EPBSRF #### [facility] [address] [place] [address] Dr. Yanely Nuñez QuantiFERON Nil Value 0.03 IU/mL [facility] Comment on above: Performed By: #### H EPBSRF #### [facility] [address] [place] [address] Dr. Yanely Nuñez QuantiFERON TB1 Ag Value 0.04 IU/mL Normal [facility] Comment on above: Performed By: #### H EPBSRF #### [facility] [address] [place] [address] Dr. Yanely Nuñez QuantiFERON TB2 Ag Value 0.03 IU/mL Normal [facility] Comment on above: Performed By: #### H EPBSRF #### [facility] [address] [place] [address] Dr. Yanely Nuñez QuantiFERON-TB Gold Plus Negative Normal Negative [facility] Comment on above: Result Comment: No r esponse to M tuberculosis antigens detected. Infection with M tuberculosis is unlikely, but high risk individuals should be considered for additional testing (ATS/IDSA/CDC Clinical Practice Guidelines, 2017). The reference range is an Antigen minus Nil result of <0.35 IU/mL. Chemiluminescence immunoassay methodology Performed By: #### H EPBSRF #### [facility] [address] [place] [address] Dr. Yanely Nuñez HEPATITIS B SURFACE ANTIBODY , QUANTon 02-05-2022 Hepatitis B Surf AB Quant >1000.0 Normal Immunity>9.9 [facility] Comment on above: Result Comment: Stat us of Immunity Anti-HBs Level Inconsistent with Immunity 0.0 - 9.9 Consistent with Immunity >9.9 Performed By: #### H EPBSRF #### [facility] [address] [place] [address] Dr. Yanely Nuñez MMR IMMUNITYon 02-05-2022 Mumps Abs, IgG 56.4 AU/mL Normal Immune >10.9 [facility] Comment on above: Result Comment: Nega tive <9.0 Equivocal 9.0 - 10.9 Positive >10.9 A positive result generally indicates past exposure to Mumps virus or previous vaccination. Performed By: #### H EPBSRF #### [facility] [address] [place] [address] Dr. Yanely Nuñez Rubella Antibodies, IgG 2.90 index Normal Immune >0.99 [facility] Comment on above: Result Comment: Non- immune <0.90 Equivocal 0.90 - 0.99 Immune >0.99 Performed By: #### H EPBSRF #### [facility] [address] [place] [address] Dr. Yanely Nuñez Rubeola Ab, IgG 183.0 AU/mL Normal Immune >16.4 [facility] Comment on above: Result Comment: Nega tive <13.5 Equivocal 13.5 - 16.4 Positive >16.4 Presence of antibodies to Rubeola is presumptive evidence of immunity except when acute infection is suspected. Performed By: #### H EPBSRF #### [facility] [address] [place] [address] Dr. Yanely Nuñez VARICELLA IGG ABon 2 Varicella Zoster IgG 483 index Normal Immune >165 [facility] Comment on above: Result Comment: Nega tive <135 Equivocal 135 - 165 Positive >165 A positive result generally indicates exposure to the pathogen or administration of specific immunoglobulins, but it is not indication of active infection or stage of disease. Performed By: #### H [id number] #### [facility] [address] [place] [address] Dr. Yanely Nuñez PAP ACOG PANEL 2: 30 to 65on 11-25-2021 . . Normal [facility] Comment on above: Result Comment: Perf ormed at: WB Performed By: #### [id number] #### [facility] [address] [place] [address] Dr. Yanely Nuñez Age Gdln ACOG Testing Normal [facility] Comment on above: Performed By: #### [id number] #### [facility] [address] [place] [address] Dr. Yanely Nuñez DIAGNOSIS: Comment Normal [facility] Comment on above: Result Comment: NEGA TIVE FOR INTRAEPITHELIAL LESION OR MALIGNANCY. Performed at: WB Performed By: #### [id number] #### [facility] [address] [place] [address] Dr. Yanely Nuñez HPV Aptima Negative Normal Negative [facility] Comment on above: Result Comment: This nucleic acid amplification test detects fourteen high-risk HPV types (16,18,31,33,35,39,45,51,52,56,58,59,66,68) without differentiation. Performed at: =G Performed By: #### [id number] #### [facility] [address] [place] [address] Dr. Yanely Nuñez Methodology: Comment Normal [facility] Comment on above: Result Comment: This liquid based ThinPrep(R) pap test was screened with the use of an image guided system. Performed at: WB Performed By: #### [id number] #### [facility] [address] [place] [address] Dr. Yanely Nuñez Note: Comment Normal [facility] Comment on above: Result Comment: The Pap smear is a screening test designed to aid in the detection of premalignant and malignant conditions of the uterine cervix. It is not a diagnostic procedure and should not be used as the sole means of detecting cervical cancer. Both false-positive and false-negative reports do occur. . Performed at: WB Performed By: #### [id number] #### [facility] [address] [place] [address] Dr. Yanely Nuñez Performed by: Comment Normal [facility] Comment on above: Result Comment: Darlin Cline, Step Down Specialist (ASCP) Performed at: WB Performed By: #### [id number] #### [facility] [address] [place] [address] Dr. Yanely Nuñez Specimen adequacy: Comment Normal [facility] Comment on above: Result Comment: Sati sfactory for evaluation. Endocervical and/or squamous metaplastic cells (endocervical component) are present. Performed at: WB Performed By: #### [id number] #### [facility] [address] [place] [address] Dr. Yanely Nuñez Vital Signs Date Time Vital Sign Value Performing Clinician Yajaira bradley 11-21-2023 19:00-0400 Body height 162.6 cm Danii Daly NP Work Phone: [facility] 11-21-2023 19:00-0400 Body mass index (BMI) [Ratio] 29.9 kg/m2 Danii Marshbridget PRENATAL TEACHER Work Phone: [facility] 11-21-2023 19:00-0400 Body temperature 99.7 [degF] Danii Urenagabby PRENATAL TEACHER Work Phone: [facility] 11-21-2023 19:00-0400 Body weight 79.02 kg Danii Addy PRENATAL TEACHER Work Phone: [facility] 11-21-2023 19:00-0400 Diastolic blood pressure 76 mm[Hg] Danii Addy PRENATAL TEACHER Work Phone: [facility] 11-21-2023 19:00-0400 Heart rate 110 /min Danii Addy PRENATAL TEACHER Work Phone: [facility] 11-21-2023 19:00-0400 Respiratory rate 19 /min Danii Addy PRENATAL TEACHER Work Phone: [facility] 11-21-2023 19:00-0400 SaO2% (BldA) [Mass fraction] 96 % Danii Urenagabby PRENATAL TEACHER Work Phone: [facility] 11-21-2023 19:00-0400 Systolic blood pressure 132 mm[Hg] Danii Urenagabby PRENATAL TEACHER Work Phone: [facility] Healthcare Encounters Encounter Date Encounter Type Care Provider Facility Start: 12-14-2023 End: 12-14-2023 Clinisync Result Encounter Amilcar Guy DO Work Phone: [facility] External Department Unsolicited Start: 12-14-2023 End: 12-14-2023 Clinisync Result Encounter Amilcar Guy DO Work Phone: [facility] External Department Unsolicited Start: 11-21-2023 End: 11-21-2023 Office outpatient visit 15 minutes Danii Addy PRENATAL TEACHER Work Phone: [facility] Comment on above: Acute bronchitis due to other specified organisms (Primary Dx) Start: 11-21-2023 End: 11-21-2023 ambulatory DANIINasrin DALY Not Available Start: 11-21-2023 End: 11-21-2023 Bamboo flowsheet Danii Addy PRENATAL TEACHER Work Phone: [facility] Start: 11-21-2023 End: 11-21-2023 Bamboo flowsheet Danii Addy PRENATAL TEACHER Work Phone: [facility] Start: 11-14-2023 End: 11-14-2023 Clinisync Result Encounter Generic External Data Provider [facility] External Department Unsolicited Start: 11-14-2023 End: 11-14-2023 Clinisync Result Encounter Generic External Data Provider [facility] External Department Unsolicited Start: 11-07-2023 End: 11-07-2023 ambulatory Danii Valdez Addy Work Phone: [facility] Work Phone: Start: 11-07-2023 End: 11-07-2023 Departed Referred Danii Addy Work Phone: [facility]-LAB Path [facility] [place] Start: 01-26-2023 End: 01-26-2023 ambulatory AMILCAR GUY Not Available Start: 12-17-2022 End: 12-17-2022 Patient encounter procedure Danii Addy Work Phone: [facility] [place] Work Phone: Start: 12-17-2022 End: 12-17-2022 ambulatory Danii Valdez Addy Work Phone: [facility] Work Phone: Start: 12-10-2022 End: 12-10-2022 Patient encounter procedure Danii Addy Work Phone: [facility] Work Phone: Start: 12-10-2022 End: 12-10-2022 ambulatory Danii Valdez Addy Work Phone: [facility] Work Phone: Start: 05-31-2022 Encounter for genera l adult medical examination without abnormal findings NAYELY DALY [facility] Start: 05-30-2022 End: 05-30-2022 ambulatory NAYELY DALY Facility:[facility] Start: 05-28-2022 End: 05-29-2022 ambulatory NAYELY DALY Facility:[facility] Start: 05-27-2022 End: 05-28-2022 ambulatory BEAN DUMPER DANII DALY Facility:[facility] Start: 05-27-2022 End: 05-28-2022 [...] Procedure Visit [facility] Amilcar Still, [address] [place] [address] [facility] Start: 11-24-2023 End: 11-24-2023 Patient encounter procedure 11/24/2023 1:00 PM EDT Procedure Visit [facility] Amilcar Still, DO [address] [place] [address] [place] [address] [facility] Start: 11-21-2023 End: 11-21-2023 Patient encounter procedure 11/21/2023 7:00 PM EDT Office Visit [facility] [address] [place] [address] Danii Daly, DAMASO [address] [place] [id number] Arrived [facility] Comment on above: Arrived Start: 10-09-2023 Influenza vaccination Influenza Vacc ine (#1) [facility] Start: 06-23-2015 Screening for malign ant neoplasm of cervix [facility] Healthcare Start: 2006 Screening for malign ant neoplasm of cervix Pap Smear [facility] Payers Date Payer Category Payer [facility] Care [facility] (unspecified) [id number] 1985 Unknown [id number] 2.16.84 [id number] 1985 Unknown [id number] 2.16.84 [id number] 1985 Unknown [id number] 2.16.84 [id number] 1985 Unknown [id number] 2.16.84 [id number] 1985 Unknown [id number] [id number] 1985 Unknown [id number] [id number] 1985 Unknown [id number] 2.16.840 .[id number] 1959 Private Health Insurance [id number] 1959 Private Health Insurance [id number] 1959 Self-pay Unknown [id number] 2.16.84 [id number] Unknown [id number] [id number] Unknown [id number] [id number] Unknown [id number] Social History Date Type Detail Facility Tobacco smoking stat [facility] Unknown if ever smoked [facility] Work Phone: Start: 1985 Sex Assigned At Female [facility] Tobacco smoking stat [facility] Tobacco smoking consumption unknown [facility] Start: 11-15-2022 Gender identity Identifies as female gender (finding) [facility] Start: 11-15-2022 Sexual orientation Heterosexual (finding) [facility] History of Present illness Narrative [...] when breathing. 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 Relationship Specialty Start Date End Date John Alicia MD [address] [place] [phone] PCP - General Family Medicine 11/21/23 Danii Daly NP [address] [place] [phone] Nurse Practitioner Family Medicine 11/21/23 Food Writer Relationship Specialty Start Date End Date John Alicia MD [address] [place] [phone] PCP - General Family Medicine 11/21/23 Danii Daly NP [address] [place] [phone] Nurse Practitioner Family Medicine 11/21/23 Food Writer Relationship Specialty Start Date End Date John Alicia MD [address] [place] [phone] PCP - General Family Medicine 11/21/23 Danii Daly NP [address] [place] [phone] Nurse Practitioner Family Medicine 11/21/23 Goals (unrecognized [...] BE BASED ON THE PRIMARY CLINICAL RECORDS. [employer] [facility]. provides no warranty or guarantee of the accuracy or completeness of information in this document.
--- NOTE | 2023-12-22 10:36 | DS_ITS ---
DISCHARGE DATE: ??12/22/2023 ? PRIMARY DIAGNOSES: 1.? Menorrhagia. 2.? Dysmenorrhea. 3.? Dyspareunia. ? PROCEDURE:? Robotic assisted laparoscopic hysterectomy with cystoscopy, bilateral salpingectomy converted to total abdominal hysterectomy based on significant amount of scar tissue of the uterus, the anterior abdominal wall, as well as a significant amount of scar tissue of the bladder to the uterus and anterior abdominal wall. ? HOSPITAL COURSE:? As expected.? Please see chart for full details.? ? LABORATORY DATA:? Please see chart. ? COMPLICATIONS:? None. ? DISCHARGE CONDITION:? Stable. ? CONSULTATION:? Anesthesia. ? DISCHARGE INSTRUCTIONS: 1.? Diet:? Regular. 2.? Medications: a.? Percocet 5/325 one to two p.o. every 4-6 hours p.r.n. pain. b.? Motrin 800 one p.o. every 8 hours p.r.n. pain. 3.? Followup in one week.Restrictions:? Pelvic rest for 6 weeks.? No heavy lifting.? May drive when pain free and no longer on narcotics. MTDD
--- OUTSIDE RECORDS SUMMARY | 2023-12-22 12:05 | XMS_ITS | CCD ---
Author Organization [facility] Care Team Providers Care Manager Lighting Name Role Phone PHONG OSEI Attending Unavailable PHONG OSEI Consulting Unavailable PHONG OSEI Admitting Unavailable REQUEST, NONE LISTED Primary Care Unavaila ble AICHHOLZ, TUBE ROOM SUPERVISOR DANII Admitting Unavailable AICHHOLZ, TUBE ROOM SUPERVISOR DANII Attending Unavailable AICHHOLZ, TUBE ROOM SUPERVISOR DANII Consulting Unavailable AICHHOLZ, TUBE ROOM SUPERVISOR DANII Primary Care Unavailable AICHHOLZ, TUBE ROOM SUPERVISOR DANII Admitting Unavailable AICHHOLZ, TUBE ROOM SUPERVISOR DANII Attending Unavailable AICHHOLZ, TUBE ROOM SUPERVISOR DANII Consulting Unavailable AICHHOLZ, TUBE ROOM SUPERVISOR DANII Primary Care Unavailable AICHHOLZ, TUBE ROOM SUPERVISOR DANII Attending Unavailable AICHHOLZ, TUBE ROOM SUPERVISOR DANII Consulting Unavailable AICHHOLZ, TUBE ROOM SUPERVISOR DANII Primary Care Unavailable AICHHOLZ, TUBE ROOM SUPERVISOR DANII Admitting Unavailable AMILCAR STILL Attending Unavailable AMILCAR STILL Consulting Unavailable AMILCAR STILL Admitting Unavailable REQUEST, NONE LISTED Primary Care Unavaila ble Amilcar Still Attending Provider Danii Daly Primary Care Provider [phone] Danii Daly Referring Provider Amilcar Sitll Attending Provider Danii Daly Primary Care Provider [phone] Danii Daly Referring Provider Danii Daly Primary Care Provider DO Amilcar Still Attending Provider Unavailable Primary Care Provider Unavailabl e AMILCAR STILL Attending Unavailable DANII DALY Attending Unavailable AMILCAR STILL Attending Unavailable John Alicia MD Primary Care Provider Addy PETIT, Danii Unavailable Danii Daly Primary Care Unavailable Amilcar Still Admitting Unavailable Amilcar Still Attending Unavailable Danii Daly Primary Care Unavailable Amilcar Still Admitting Unavailable Amilcar Still Attending Unavailable Medications Current Medications Medication Drug Class(es) Dates Sig (Normalized) Sig (Original) [id number] 200 actuat albuterol 0.09 mg/actuat metered dose [...] deficiency anemia, unspecified] Onset: 11-21-2023 11-21-2023 Episodic Past or Other Problems Problem Classification Problem [...] Nom (Bld) Blood group O Rh(D) negative [facility] , [facility] ALL CBC WITH AUTO DIFFon BASOPHILS ABSOLUTE AUTO 0.0 [facility] Basophils/100 WBC (Bld) 0.3 % 0.2 - 2.0 % [facility] Eosinophils/100 WBC (Bld) 4.5 % 0.9 - 7.0 % [facility] Erythrocyte distribution width (RBC) [Ratio] 12.6 % 11.0 - 15.0 % [facility] Hematocrit (Bld) [Volume fraction] 44.5 % 36.0 - 48.0 % [facility] Hemoglobin (Bld) [Mass/Vol] 14.7 g/dL 12.0 - 16.0 g/dL [facility] IMMATURE GRANULOCYTES ABS AUTO 0.02 [facility] Immature granulocytes/100 WBC (Bld) 0.3 % 0.0 - 0.5 % [facility] LYMPHOCYTES ABSOLUTE AUTO 1.9 [facility] Lymphocytes/100 WBC (Bld) 27.5 % 20.5 - 60.0 % [facility] MCH (RBC) [Entitic mass] 29.3 pg 26.7 - 34.0 pg [facility] MCHC (RBC) [Mass/Vol] 33.0 g/dL 29.9 - 35.2 g/dL [facility] MCV (RBC) [Entitic vol] 88.6 fL 81.0 - 99.0 fL [facility] MONOCYTES ABSOLUTE AUTO 0.5 [facility] Monocytes/100 WBC (Bld) 6.8 % 1.7 - 12.0 % [facility] NEUTROPHILS ABSOLUTE AUTO 4.3 [facility] Neutrophils/100 WBC (Bld) 60.6 % 43.0 - 75.0 % [facility] Platelet mean volume (Bld) [Entitic vol] 9.6 fL 9.5 - 13.5 fL [facility] EO # 0.3 [facility] PLT 327 [facility] RBC 5.02 [facility] WBC 7.1 [facility] 11-07-2023 L Specimen: [id number] Received: 11/08/23 Status: OZZYDestinee Alfredo Num: [id number] Spec Type: Surgical Subm Dr: Amilcar Still Tissues: A Endometrium - Biopsy (ENDOMETRIAL BX) Procedures: HE/2, Gross/Micro L4 Age/ Patient Sex Location Account Attending Physician Briana Mason 38/F [place] [id number] Amilcar Still SPEC NUM: [id number] RECD: 11/08/23 STATUS: PATIENCE ALFREDO NUM: [id number] SHARRI: 11/07/23- SUBM DR: Amilcar Still ENTERED: 11/08/23 [facility] DR: Estephania,Bhavya SPEC TYPE: Surgical DEPT: JUAN CARLOS MEEHAN ENTERED BY: [id number] RECV BY: [id number] ORDERED: HE/2, Gross/Micro L4 ORDERED: HE/2, Gross/Micro [...] performed supporting the above interpretation -------- Specimen: [id number] Received: 11/08/23 Status: PATIENCE Alfredo Num: [id number] Spec Type: Surgical Subm Dr: Amilcar Still Tissues: A Endometrium - Biopsy (ENDOMETRIAL BX) Procedures: Danya BURGOS -------- Patient: Briana Mason [id number] (Continued) -------- Specimen: [id number] Received: 11/08/23 (Continued) Signed (signature on file) Javon Nuñez MD 11/10/23 1053 -------- Specimen: [id number] Received: 11/08/23 Status: PATIENCE Alfredo Num: [id number] Spec Type: Surgical Subm : Amilcar Still Tissues: A Endometrium - Biopsy (ENDOMETRIAL BX) Procedures: Danya BURGOS -------- Patient: Briana Mason [id number] (Continued) -------- Specimen: [id number] Received: 11/08/23 (Continued) CPT Codes 42806 -------- -------- Specimen: [id number] Received: 11/08/23 Status: PATIENCE Alfredo Num: [id number] Spec Type: Surgical Subm Dr: Amilcar Still Tissues: A Endometrium - Biopsy (ENDOMETRIAL BX) Procedures: HE/2, Gross/Micro L4 -------- Patient: Briana Mason [id number] (Continued) -------- Signed (signature on file) Javon Nuñez MD 11/10/23 1053 Normal [facility] OCC BLD IMMUNO SCREENon 05-09 OCCULT BLOOD Negative Normal NEGATIVE [facility] Comment on above: Performed By: #### H EPBSRF #### [facility] [address] [place] [address] Dr. Yanely Nuñez FERRITINon 05-28-2022 Ferritin [Mass/Vol] 5.0 ng/mL Critically low 6.2-137.0 [facility] Comment on above: Performed By: #### I NICHOLE VITB12, FERR #### [facility] [address] [place] [address] Dr. Yanely Nuñez IRONon 05-28-2022 Iron [Mass/Vol] 14.0 ug/dL Critically low 50.0-170.0 [facility] Comment on above: Performed By: #### I NICHOLE VITB12, FERR #### [facility] [address] [place] [address] Dr. Yanely Nuñez VITAMIN B12on 05-28-2022 Cobalamin (Vitamin B12) [Mass/Vol] 929.0 pg/mL Normal 193.0-986.0 [facility] Comment on above: Performed By: #### I CASSANDRA VARELAB12, FERR #### [facility] [address] [place] [address] Dr. Yanely Nuñez CBC AUTO DIFFon 05-27-2022 BASO # 0.0 103/ul Normal 0.0-0.1 [facility] Comment on above: Performed By: #### C BC #### [facility] [address] [place] [address] Dr. Yanely Nuñez Basophils/100 WBC (Bld) 0.1 % Critically low 0.2-2.0 [facility] Comment on above: Performed By: #### C BC #### [facility] [address] [place] [address] Dr. Yanely Nuñez EO # 0.1 103/ul Normal 0.0-0.7 [facility] Comment on above: Performed By: #### C BC #### [facility] [address] [place] [address] Dr. Yanely Nuñez Eosinophils/100 WBC (Bld) 2.0 % Normal 0.9-7.0 [facility] Comment on above: Performed By: #### C BC #### [facility] [address] [place] [address] Dr. Yanely Nuñez Erythrocyte distribution width (RBC) [Ratio] 17.1 % Critically high 11.0-15.0 [facility] Comment on above: Performed By: #### C BC #### [facility] [address] [place] [address] Dr. Yanely Nuñez Hematocrit (Bld) [Volume fraction] 32.1 % Critically low 36.0-48.0 [facility] Comment on above: Performed By: #### C BC #### [facility] [address] [place] [address] Dr. Yanely Nuñez Hemoglobin (Bld) [Mass/Vol] 9.3 g/dL Critically low 12.0-16.0 [facility] Comment on above: Performed By: #### C BC #### [facility] [address] [place] [address] Dr. Yanely Nuñez IG # 0.02 10e3/ul Normal 0.00-0.03 [facility] Comment on above: Performed By: #### C BC #### [facility] [address] [place] [address] Dr. Yanely Nuñez IG % 0.3 % Normal 0.0-0.5 [facility] Comment on above: Performed By: #### C BC #### [facility] [address] [address] [address] Yanely Nuñez LYMPH # 1.5 103/ul Normal 1.2-3.8 [facility] Comment on above: Performed By: #### C BC #### [facility] [address] [address] [address] Yanely Nuñez Lymphocytes/100 WBC (Bld) 22.5 % Normal 20.5-60.0 [facility] Comment on above: Performed By: #### C BC #### [facility] [address] [address] [address] Yanely Nuñez MANUAL DIFF REQ NO Normal [facility] Comment on above: Performed By: #### C BC #### [facility] [address] [place] [address] Dr. Yanely Nuñez MCH (RBC) [Entitic mass] 20.3 pg Critically low 26.7-34.0 [facility] Comment on above: Performed By: #### C BC #### [facility] [address] [place] [address] Dr. Yanely Nuñez MCHC (RBC) [Mass/Vol] 29.0 g/dL Critically low 29.9-35.2 [facility] Comment on above: Performed By: #### C BC #### [facility] [address] [place] [address] Dr. Yanely Nuñez MCV (RBC) [Entitic vol] 70.1 fL Critically low 81.0-99.0 [facility] Comment on above: Performed By: #### C BC #### [facility] [address] [place] [address] Dr. Yanely Nuñez MONO # 0.5 103/ul Normal 0.3-0.8 [facility] Comment on above: Performed By: #### C BC #### [facility] [address] [place] [address] Dr. Yanely Nuñez Monocytes/100 WBC (Bld) 7.0 % Normal 1.7-12.0 [facility] Comment on above: Performed By: #### C BC #### [facility] [address] [address] [address] Yanely Nuñez NEUT # 4.7 103/ul Normal 1.4-6.5 [facility] Comment on above: Performed By: #### C BC #### [facility] [address] [address] [address] Yanely Nuñez Neutrophils/100 WBC (Bld) 68.1 % Normal 43.0-75.0 [facility] Comment on above: Performed By: #### C BC #### [facility] [address] [address] [address] Yanely Nuñez Platelet mean volume (Bld) [Entitic vol] 9.9 fL Normal 9.5-13.5 [facility] Comment on above: Performed By: #### C BC #### [facility] [address] [address] [address] Yanely Nuñez PLT 488 103/ul Critically high 150-[address] [facility] Comment on above: Performed By: #### C BC #### [facility] [address] [address] [address] Yanely Nuñez RBC 4.58 106/ul Normal 4.20-5.40 [facility] Comment on above: Performed By: #### C BC #### [facility] [address] [address] [address] Yanely Nuñez WBC 6.9 103/ul Normal 4.0-11.0 [facility] Comment on above: Performed By: #### C BC #### [facility] [address] [address] [address] Yanely Nuñez GLYCOHEMOGLOBIN A1Con 2022 ADA RECOMMENDATION SEE BELOW Normal [facility] Comment on above: Result Comment: ADA RECOMMENDED LIMIT 4.0 - 6.0 ADA THERAPEUTIC TARGET < 7.0 ACTION SUGGESTED > 7.0 Performed By: #### A 1C #### [facility] [address] [address] [address] Yanely Nuñez Glucose [Mass/Vol] 114 mg/dL Normal [facility] Comment on above: Performed By: #### A 1C #### [facility] [address] [address] [address] Yanely Nuñez HbA1c (Bld) [Mass fraction] 5.6 % Normal 4.5-6.2 [facility] Comment on above: Performed By: #### A 1C #### [facility] [address] [address] [address] Yanely Nuñez LIPID PROFILEon 05-27-2022 CHOL-HDL RATIO NORM SEE BELOW Normal [facility] Comment on above: Result Comment: 3.3 - 4.4 LOW RISK 4.4 - 7.1 AVERAGE RISK 7.1 - 11.0 MODERATE RISK >11.0 HIGH RISK Performed By: #### C MP, LIPID, TSH #### [facility] [address] [address] [address] Yanely Nuñez Cholesterol [Mass/Vol] 207 mg/dL Critically high <=200 [facility] Comment on above: Performed By: #### C MP, LIPID, TSH #### [facility] [address] [address] [address] Yanely Nuñez Cholesterol in HDL [Mass/Vol] 54 mg/dL Normal 40-60 [facility] Comment on above: Performed By: #### C MP, LIPID, TSH #### [facility] [address] [address] [address] Yanely Nuñez Cholesterol in LDL [Mass/Vol] 141.0 mg/dL Normal [facility] Comment on above: Performed By: #### C MP, LIPID, TSH #### [facility] [address] [address] [address] Yanely Nuñez Cholesterol.total/Ch olesterol in HDL [Mass ratio] 3.8 {ratio} Normal [facility] Comment on above: Performed By: #### C MP, LIPID, TSH #### [facility] [address] [address] [address] Yanely Nuñez HDL NORMAL > or = 60 mg/dl - LO W CARDIOVASCULAR RISK <40 mg/dl - HIGH CARDIOVASCULAR RISK Normal [facility] Comment on above: Performed By: #### C MP, LIPID, TSH #### [facility] [address] [address] [address] Yanely Nuñez LDL CALC NORMAL SEE BELOW Normal [facility] Comment on above: Result Comment: <100 mg/dl OPTIMAL 100 - 129 mg/dl NEAR OR ABOVE OPTIMAL 130 - 159 mg/dl BORDERLINE HIGH 160 - 189 mg/dl HIGH >190 mg/dl VERY HIGH Performed By: #### C MP, LIPID, TSH #### [facility] [address] [address] [address] Yanely Nuñez Triglyceride [Mass/Vol] 60 mg/dL Normal <=150 [facility] Comment on above: Performed By: #### C MP, LIPID, TSH #### [facility] [address] [address] [address] Yanely Nuñez VLDL CALC 12.0 mg/dL Normal [facility] Comment on above: Performed By: #### C MP, LIPID, TSH #### [facility] [address] [place] [address] Dr. Yanely Nuñez PROF 14(COMP METB)on 023 Albumin [Mass/Vol] 4.0 g/dL Normal 3.4-5.0 [facility] Comment on above: Performed By: #### C MP, LIPID, TSH #### [facility] [address] [address] [address] Yanely Nuñez Albumin/Globulin [Mass ratio] 1.0 {ratio} Normal [facility] Comment on above: Performed By: #### C MP, LIPID, TSH #### [facility] [address] [address] [address] Yanely Nuñez ALP [Catalytic activity/Vol] 57 U/L Normal 46-116 [facility] Comment on above: Performed By: #### C MP, LIPID, TSH #### [facility] [address] [address] [address] Yanely Nuñez ALT [Catalytic activity/Vol] 111 U/L Critically high 14-59 [facility] Comment on above: Performed By: #### C MP, LIPID, TSH #### [facility] [address] [address] [address] Yanely Nuñez Anion gap [Moles/Vol] 13.1 mmol/L Normal [facility] Comment on above: Performed By: #### C MP, LIPID, TSH #### [facility] [address] [place] [address] Dr. Yanely Nuñez AST [Catalytic activity/Vol] 34 U/L Normal 15-37 [facility] Comment on above: Performed By: #### C MP, LIPID, TSH #### [facility] [address] [place] [address] Dr. Yanely Nuñez Bilirubin [Mass/Vol] 0.4 mg/dL Normal 0.2-1.0 [facility] Comment on above: Performed By: #### C MP, LIPID, TSH #### [facility] [address] [place] [address] Dr. Yanely Nuñez Calcium [Mass/Vol] 9.5 mg/dL Normal 8.5-10.1 [facility] Comment on above: Performed By: #### C MP, LIPID, TSH #### [facility] [address] [place] [address] Dr. Yanely Nuñez Chloride [Moles/Vol] 104 mmol/L Normal 98-107 [facility] Comment on above: Performed By: #### C MP, LIPID, TSH #### [facility] [address] [place] [address] Dr. Yanely Nuñez CO2 [Moles/Vol] 27.2 mmol/L Normal 21.0-32.0 [facility] Comment on above: Performed By: #### C MP, LIPID, TSH #### [facility] [address] [place] [address] Dr. Yanely Nuñez Creatinine [Mass/Vol] 0.76 mg/dL Normal 0.55-1.02 [facility] Comment on above: Performed By: #### C MP, LIPID, TSH #### [facility] [address] [place] [address] Dr. Yanely Nuñez EGFR-AF DOMINICAN >60 Normal >=60 [facility] Comment on above: Performed By: #### C MP, LIPID, TSH #### [facility] [address] [place] [address] Dr. Yanely Nuñez EGFR-NON AF DOMINICAN >60 Normal >=60 [facility] Comment on above: Performed By: #### C MP, LIPID, TSH #### [facility] [address] [address] [address] Yanely Nuñez Globulin (S) [Mass/Vol] 4.0 g/dL Normal [facility] Comment on above: Performed By: #### C MP, LIPID, TSH #### [facility] [address] [address] [address] Yanely Nuñez Glucose [Mass/Vol] 86 mg/dL Normal 74-106 [facility] Comment on above: Performed By: #### C MP, LIPID, TSH #### [facility] [address] [address] [address] Yanely Nuñez Potassium [Moles/Vol] 4.3 mmol/L Normal 3.5-5.1 [facility] Comment on above: Performed By: #### C MP, LIPID, TSH #### [facility] [address] [place] [address] Dr. Yanely Nuñez Protein [Mass/Vol] 8.0 g/dL Normal 6.4-8.2 [facility] Comment on above: Performed By: #### C MP, LIPID, TSH #### [facility] [address] [place] [address] Dr. Yanely Nuñez Sodium [Moles/Vol] 140 mmol/L Normal 136-145 [facility] Comment on above: Performed By: #### C MP, LIPID, TSH #### [facility] [address] [place] [address] Dr. Yanely Nuñez Urea nitrogen [Mass/Vol] 13.0 mg/dL Normal 7.0-18.0 [facility] Comment on above: Performed By: #### C MP, LIPID, TSH #### [facility] [address] [place] [address] Dr. Yanely Nuñez Urea nitrogen/Creatinine [Mass ratio] 17.1 mg/mg Normal [facility] Comment on above: Performed By: #### C MP, LIPID, TSH #### [facility] [address] [place] [address] Dr. Yanely Nuñez TSHon 05-27-2022 TSH 0.862 uIU/mL Normal 0.358-3.740 [facility] Comment on above: Performed By: #### C MP, LIPID, TSH #### [facility] [address] [place] [address] Dr. Yanely Nuñez QUANTIFERON TB GOLD PLUSon 1 QuantiFERON Criteria Comment Normal [facility] Comment on above: Result Comment: Leoncio [...] test. Performed By: #### H EPBSRF #### [facility] [address] [place] [address] Dr. Yanely Nuñez QuantiFERON Incubation Incubation performed. Normal [facility] Comment on above: Performed By: #### H EPBSRF #### [facility] [address] [place] [address] Dr. Yanely Nuñez QuantiFERON Mitogen Value >10.00 Normal [facility] Comment on above: Performed By: #### H EPBSRF #### [facility] [address] [place] [address] Dr. Yanely Nuñez QuantiFERON Nil Value 0.03 IU/mL Normal [facility] Comment on above: Performed By: #### H EPBSRF #### [facility] [address] [place] [address] Dr. Yanely Nuñez QuantiFERON TB1 Ag Value 0.04 IU/mL [facility] Comment on above: Performed By: #### H EPBSRF #### [facility] [address] [place] [address] Dr. Yanely Nuñez QuantiFERON TB2 Ag Value 0.03 IU/mL Normal [facility] Comment on above: Performed By: #### H EPBSRF #### [facility] [address] [place] [address] Dr. Yanely Nuñez QuantiFERON-TB Gold Plus Negative Normal Negative [facility] Comment on above: Result Comment: No r esponse to M tuberculosis antigens detected. Infection with M tuberculosis is unlikely, but high risk individuals should be considered for additional testing (ATS/IDSA/CDC Clinical Practice Guidelines, 2017). The reference range is an Antigen minus Nil result of <0.35 IU/mL. Chemiluminescence immunoassay methodology Performed By: #### H EPBSRF #### [facility] [address] [place] [address] Dr. Yanely Nuñez HEPATITIS B SURFACE ANTIBODY , QUANTon 02-05-2022 Hepatitis B Surf AB Quant >1000.0 Normal Immunity>9.9 [facility] Comment on above: Result Comment: Stat us of Immunity Anti-HBs Level Inconsistent with Immunity 0.0 - 9.9 Consistent with Immunity >9.9 Performed By: #### H EPBSRF #### [facility] [address] [place] [address] Dr. Yanely Nuñez MMR IMMUNITYon 02-05-2022 Mumps Abs, IgG 56.4 AU/mL Normal Immune >10.9 [facility] Comment on above: Result Comment: Nega tive <9.0 Equivocal 9.0 - 10.9 Positive >10.9 A positive result generally indicates past exposure to Mumps virus or previous vaccination. Performed By: #### H EPBSRF #### [facility] [address] [place] [address] Dr. Yanely Nuñez Rubella Antibodies, IgG 2.90 index Normal Immune >0.99 [facility] Comment on above: Result Comment: Non- immune <0.90 Equivocal 0.90 - 0.99 Immune >0.99 Performed By: #### H EPBSRF #### [facility] [address] [place] [address] Dr. Yanely Nuñez Rubeola Ab, IgG 183.0 AU/mL Normal Immune >16.4 [facility] Comment on above: Result Comment: Nega tive <13.5 Equivocal 13.5 - 16.4 Positive >16.4 Presence of antibodies to Rubeola is presumptive evidence of immunity except when acute infection is suspected. Performed By: #### H EPBSRF #### [facility] [address] [place] [address] Dr. Yanely Nuñez VARICELLA IGG ABon 2 Varicella Zoster IgG 483 index Normal Immune >165 [facility] Comment on above: Result Comment: Nega tive <135 Equivocal 135 - 165 Positive >165 A positive result generally indicates exposure to the pathogen or administration of specific immunoglobulins, but it is not indication of active infection or stage of disease. Performed By: #### H EPBSRF #### [facility] [address] [place] [address] Dr. Yanely Nuñez PAP ACOG PANEL 2: 30 to 65on 11-25-2021 . . Normal [facility] Comment on above: Result Comment: Perf ormed at: WB Performed By: #### [id number] #### [facility] [address] [place] [address] Dr. Yanely Nuñez Age Gdln ACOG Testing 30-65 Normal [facility] Comment on above: Performed By: #### [id number] #### [facility] [address] [place] [address] Dr. Yanely Nuñez DIAGNOSIS: Comment Normal [facility] Comment on above: Result Comment: NEGA TIVE FOR INTRAEPITHELIAL LESION OR MALIGNANCY. Performed at: WB Performed By: #### [id number] #### [facility] [address] [place] [address] Dr. Yanely Nuñez HPV Aptima Negative Normal Negative [facility] Comment on above: Result Comment: This nucleic acid amplification test detects fourteen high-risk HPV types (16,18,31,33,35,39,45,51,52,56,58,59,66,68) without differentiation. Performed at: =G Performed By: #### [id number] #### [facility] [address] [place] [address] Dr. Yanely Nuñez Methodology: Comment Normal [facility] Comment on above: Result Comment: This liquid based ThinPrep(R) pap test was screened with the use of an image guided system. Performed at: WB Performed By: #### [id number] #### [facility] [address] [place] [address] Dr. Yanely Nuñez Note: Comment Normal [facility] Comment on above: Result Comment: The Pap smear is a screening test designed to aid in the detection of premalignant and malignant conditions of the uterine cervix. It is not a diagnostic procedure and should not be used as the sole means of detecting cervical cancer. Both false-positive and false-negative reports do occur. . Performed at: WB Performed By: #### [id number] #### [facility] [address] [address] [address] Yanely Nuñez Performed by: Comment Normal [facility] Comment on above: Result Comment: Darlin Cline, Portfolio Assistant (ASCP) Performed at: WB Performed By: #### [id number] #### [facility] [address] [place] [address] Dr. Yanely Nuñez Specimen adequacy: Comment Normal [facility] Comment on above: Result Comment: Sati sfactory for evaluation. Endocervical and/or squamous metaplastic cells (endocervical component) are present. Performed at: WB Performed By: #### [id number] #### [facility] [address] [place] [address] Dr. Yanely Nuñez Vital Signs Date Time Vital Sign Value Performing Clinician Faci lity 11-21-2023 19:00-0400 Body height 162.6 cm Danii Daly [employer] INSPECTOR Work Phone: [facility] 11-21-2023 19:00-0400 Body mass index (BMI) [Ratio] 29.9 kg/m2 Danii Daly [employer] INSPECTOR Work Phone: [facility] 11-21-2023 19:00-0400 Body temperature 99.7 [degF] Danii Daly [employer] INSPECTOR Work Phone: [facility] 11-21-2023 19:00-0400 Body weight 79.02 kg Danii Daly [employer] INSPECTOR Work Phone: [facility] 11-21-2023 19:00-0400 Diastolic blood pressure 76 mm[Hg] Danii Adyd [employer] INSPECTOR Work Phone: [facility] 11-21-2023 19:00-0400 Heart rate 110 /min Danii Addy [employer] INSPECTOR Work Phone: [facility] 11-21-2023 19:00-0400 Respiratory rate 19 /min Danii Addy [employer] LEAF INSPECTOR Work Phone: [facility] 11-21-2023 19:00-0400 SaO2% (BldA) [Mass fraction] 96 % Danii Addy [employer] INSPECTOR Work Phone: [facility] 11-21-2023 19:00-0400 Systolic blood pressure 132 mm[Hg] Danii Addy WR[employer]PER LEAF INSPECTOR Work Phone: [facility] Encounters Encounter Date Encounter Type Care Provider Facility Start: 12-20-2023 End: 12-20-2023 ambulatory Danii Daly Facility:[facility] Start: 12-14-2023 End: 12-14-2023 Clinisync Result Encounter Amilcar Cheko DO Work Phone: [facility] Unsolicited Start: 12-14-2023 End: 12-14-2023 Clinisync Result Encounter Amilcar Cheko DO Work Phone: [facility] Unsolicited Start: 11-21-2023 End: 11-21-2023 Office outpatient visit 15 minutes Danii Daly [employer] INSPECTOR Work Phone: [facility] Comment on above: Acute bronchitis due to other specified organisms (Primary Dx) Start: 11-21-2023 End: 11-21-2023 ambulatory DANII DALY Not Available Start: 11-21-2023 End: 11-21-2023 Bamboo flowsheet Danii Daly [employer] LEAF INSPECTOR Work Phone: [facility] Start: 11-21-2023 End: 11-21-2023 Bamboo flowsheet Danii Daly [employer]AF INSPECTOR Work Phone: [facility] Start: 11-14-2023 End: 11-14-2023 Clinisync Result Encounter Generic External Data Provider [facility] Unsolicited Start: 11-14-2023 End: 11-14-2023 Clinisync Result Encounter Generic External Data Provider [facility] Unsolicited Start: 11-07-2023 End: 11-07-2023 ambulatory Danii José Miguel Daly Work Phone: [facility] Work Phone: Start: 11-07-2023 End: 11-07-2023 Departed Referred Daini Daly Work Phone: [facility] Start: 01-26-2023 End: 01-26-2023 ambulatory AMILCAR CHEKO Not Available Start: 12-17-2022 End: 12-17-2022 ambulatory Danii Valdez Addy Work Phone: [facility] Work Phone: Start: 12-17-2022 End: 12-17-2022 Patient encounter procedure Danii Addy Work Phone: [facility] [place] Work Phone: Start: 12-10-2022 End: 12-10-2022 ambulatory Danii José Miguel Daly Work Phone: [facility] Work Phone: Start: 12-10-2022 End: 12-10-2022 Patient encounter procedure Danii Addy Work Phone: [facility] Work Phone: Start: 05-31-2022 Encounter for genera l adult medical examination without abnormal findings NAYELY DALY [facility] Start: 05-30-2022 End: 05-30-2022 ambulatory NAYELY [...] Work Phone: Start: 12-17-2022 Pelvic echography Danii Addy Work Phone: Start: 12-17-2022 Transvaginal echography Danii Urenagabby Work Phone: Start: 12-10-2022 Bilateral mammography L evelyn Urenaraisaderick Work Phone: Plan of Treatment Date Care Activity Detail Author Start: 12-20-2023 End: 12-20-2023 Patient encounter procedure 12/20/2023 6:00 AM EST Procedure Visit [facility] Amilcar Still, DO [address] [place] [address] [facility] Start: 11-24-2023 End: 11-24-2023 Patient encounter procedure 11/24/2023 1:00 PM EDT Procedure Visit [facility] Amilcar Still, DO [address] [place] [address] [facility] Start: 11-21-2023 End: 11-21-2023 Patient encounter procedure 11/21/2023 7:00 PM EDT Office Visit [facility] [place] [address] [place] [id number] Danii Daly, DAMASO [address] [place] [address] Arrived [facility] Comment on above: Arrived Start: 10-09-2023 Influenza vaccination Influenza Vacc ine (#1) [facility] Start: 06-23-2015 Screening for malign ant neoplasm of cervix [facility] Start: 2006 Screening for malign ant neoplasm of cervix Pap Smear [facility] Healthcare Payers Date Payer Category Payer [facility] Care [facility] (unspecified) [id number] 1985 Unknown [id number] 2.16.84 [id number] 1985 Unknown [id number] 2.16.84 [id number] 1985 Unknown [id number] 2.16.84 [id number] 1985 Unknown [id number] 2.16.84 [id number] 1985 Unknown [id number] 1985 Unknown [id number] 1985 Unknown [id number] [id number] .[id number] 1959 Private Health Insurance [facility] [id number] Private Health Insurance [id number] Self-pay Unknown [id number] 2.16.84 [id number] Unknown [id number] Unknown [id number] Social History Date Type Detail Facility Tobacco smoking stat [facility] Unknown if ever smoked [facility] Work Phone: Start: 1985 Sex Assigned At Female [facility] Tobacco smoking stat [facility] Tobacco smoking consumption unknown [facility] Start: 11-15-2022 Gender identity Identifies as female gender (finding) [facility] Start: 11-15-2022 Sexual orientation Heterosexual (finding) [facility] History of Present illness Narrative [...] when breathing. 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 [...] Note Facility Evaluation note No assessment information dorita [facility] Work Phone: Evaluation note Note Date [...] content) DATE CREATED AUTHOR 06/04/2022 [facility] pital DATE CREATED AUTHOR AUTHOR'S ORGANIZ ATION 11/23/2023 [facility] EPIC DATE CREATED AUTHOR AUTHOR'S ORGANIZ ATION 12/22/2023 [facility] y[facility] Care Teams (unrecognized sec tion [...] November 07, 2023 End: November 07, 2023 Manager Lighting Relationship Specialty Start Date End Date John Alicia MD [address] [place] [phone] PCP - General Family Medicine 11/21/23 Danii aDly NP [address] [place] [phone] Nurse Practitioner Family Medicine 11/21/23 Manager Lighting Relationship Specialty Start Date End Date John Alicia MD [address] [place] [phone] PCP - General Family Medicine 11/21/23 Danii Daly NP [address] [place] [phone] Nurse Practitioner [facility] 11/21/23 Manager Lighting Relationship Specialty Start Date End Date John Alicia MD [address] [place] [phone] PCP - General [facility] 11/21/23 Danii Daly NP [address] [place] [phone] Nurse Practitioner [facility] 11/21/23 Goals (unrecognized section and content) Goals [...] BE BASED ON THE PRIMARY CLINICAL RECORDS. [facility]. provides no warranty or guarantee of the accuracy or completeness of information in this document.
--- NOTE | 2023-12-26 11:48 | CM.DCFOLLOWU ---
Person spoke with:patient How are you feeling?well How is your pain? as to be expected, a little better than last few days, tolerable Did you understand your discharge instructions?yes Do you have any questions about your discharge instructions?no Were you given any prescriptions at discharge?no Were you able to get your prescriptions filled?na Do you understand how to take your medications as ordered? yes Do you have any questions about your follow up appointment and do you plan to keep your follow up appointment? no questions, reviewed follow up Is there anything else that you would like to discuss?no Questions/Comments/Concerns/Other:none
== END 2023-12-22 10:36 | disposition home or self-care (01) | DRG 743 ==
LOC: SURGOUT 12-22 12:00 → MS 12-22 12:00
PROVIDERS: Admitting Provider Obstetrics & Gynecology; PCP Nurse Practitioner; Visit Provider Obstetrics & Gynecology
PROC: 0UT90ZZ Resection of Uterus, Open Approach (ICD-10-PCS; principal; 2023-12-20 07:30)
DX: N92.0 Excessive and frequent menstruation with regular cycle (principal); N94.10 Unspecified dyspareunia; N94.6 Dysmenorrhea, unspecified; R10.2 Pelvic and perineal pain; Z53.31 Laparoscopic surgical procedure converted to open procedure
CPT/HCPCS: 36415; 84702; 85025; 88307; 94667; 94668; J0131; J0690; J1100; J1171; J1650; J1885; J2250; J2371; J2405; J2704; J3010

== ENCOUNTER 2024-02-09 12:03 | Outpatient (OUT) | payer OTHER, SELFPAY ==
[2024-02-07 09:41] LABS: Basophils Percent Auto 0.2 % (0.2-2.0); Eosinophils Absolute Auto 0.2 10^3/uL (0.0-0.7); Eosinophils Percent Auto 4.1 % (0.9-7.0); Hematocrit 40.6 % (36.0-48.0); Hemoglobin 13.3 g/dL (12.0-16.0); Immature Granulocytes Abs Auto 0.01 10^3/uL (0.00-0.03); Immature Granulocytes Pct Auto 0.2 % (0.0-0.5); Lymphocytes Absolute Auto 1.8 10^3/uL (1.2-3.8); Lymphocytes Percent Auto 33.3 % (20.5-60.0); Mean Corpuscular HGB Conc 32.8 g/dL (29.9-35.2); Mean Corpuscular Hemoglobin 27.9 pg (26.7-34.0); Mean Corpuscular Volume 85.1 fL (81.0-99.0); Mean Platelet Volume 9.5 fL (9.5-13.5); Monocytes Absolute Auto 0.5 10^3/uL (0.3-0.8); Monocytes Percent Auto 8.6 % (1.7-12.0); Neutrophils Absolute Auto 2.9 10^3/uL (1.4-6.5); Neutrophils Percent Auto 53.6 % (43.0-75.0); Platelet Count 328 10^3/uL (150-450); Red Blood Count 4.77 10^6/uL (4.20-5.40); Red Cell Distribution Width 12.3 % (11.0-15.0); White Blood Count 5.4 10^3/uL (4.0-11.0)
--- OUTSIDE RECORDS SUMMARY | 2024-02-09 12:07 | XMS_ITS | CCD ---
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 Name Role Phone PHONG OSEI Attending Unavailable PHONG OSEI Consulting Unavailable PHONG OSEI Admitting Unavailable REQUEST, NONE LISTED Primary Care Unavaila ble AICHHOLZ, OCCUPATIONAL HEALTH PHYSICIAN DANII Admitting Unavailable AICHHOLZ, OCCUPATIONAL HEALTH PHYSICIAN DANII Attending Unavailable AICHHOLZ, OCCUPATIONAL HEALTH PHYSICIAN DANII Consulting Unavailable AICHHOLZ, OCCUPATIONAL HEALTH PHYSICIAN DANII Primary Care Unavailable AICHHOLZ, OCCUPATIONAL HEALTH PHYSICIAN DANII Admitting Unavailable AICHHOLZ, OCCUPATIONAL HEALTH PHYSICIAN DANII Attending Unavailable AICHHOLZ, OCCUPATIONAL HEALTH PHYSICIAN DANII Consulting Unavailable AICHHOLZ, OCCUPATIONAL HEALTH PHYSICIAN DANII Primary Care Unavailable AICHHOLZ, OCCUPATIONAL HEALTH PHYSICIAN DANII Attending Unavailable AICHHOLZ, OCCUPATIONAL HEALTH PHYSICIAN DANII Consulting Unavailable AICHHOLZ, OCCUPATIONAL HEALTH PHYSICIAN DANII Primary Care Unavailable AICHHOLZ, OCCUPATIONAL HEALTH PHYSICIAN DANII Admitting Unavailable AMILCAR STILL Attending Unavailable AMILCAR STILL Consulting Unavailable AMILCAR STILL Admitting Unavailable REQUEST, NONE LISTED Primary Care Unavaila ble Amilcar Still Attending Provider [phone] Danii Daly Primary Care Provider [phone] Danii Daly Referring Provider Amilcar Still Attending Provider Danii Daly Primary Care Provider Danii Daly Referring Provider [phone] Danii Daly Primary Care Provider DO Amilcar Still Attending Provider Unavailable Primary Care Provider Unavailtim Alicia MD, John Primary Care Provider [phone] Addy SUPERVISOR CLOTH WINDING, Danii Unavailable Danii Daly Primary Care Provider Amlicar Still DO Attending Provider [phone] Amilcar Still Admitting Unavailable Amilcar Still Attending Unavailable Danii Daly Primary Care Unavailable Amilcar Still Admitting Unavailable Amilcar Still Attending Unavailable Danii Daly Primary Care Unavailable AMILCAR STILL Attending Unavailable DANII DALY Attending Unavailable ADAMARIS MERCADO Attending Unavailable ADAMARIS MERCADO Attending Unavailable Medications Current Medications Medication Drug Class(es) Dates Sig (Normalized) Sig (Original) [id number] 200 actuat albuterol 0.09 mg/actuat metered dose inhaler (11 sources) beta2-Adrenergic Agonist Start: 11-21-2023 End: 12-21-2023 take 2 puff(s) by inhalation every six hours for wheezing albuterol HFA 90 mcg/act inhaler Indications: Acute bronchitis due to other specified organisms Inhale 2 puffs every 6 (six) hours if needed for wheezing or shortness of breath 18 g 11/21/2023 Active amoxicillin 875 mg / clavulanate 125 [...] Active ascorbic acid 250 mg chewable tablet (14 sources) Vitamin C ascorbic acid (Vitamin C) [...] 11/28/2023 Active cholecalciferol 0.125 mg oral capsule (15 sources) Vitamin D cholecalciferol (Vitamin D-3) 125 MCG (5000 UT) capsule Active clobetasol propionate 0.5 mg/ml topical cream (11 sources) Corticosteroid Start: 11-19-2023 clobetasol (Temovate) 0.05 % cream 11/19/2023 Active ferrous sulfate 325 mg oral tablet (15 sources) Start: 02-08-2023 End: 02-08-2024 take 1 tablet by mouth in the morning ferrous sulfate (FerrouSul) 325 (65 Fe) MG tablet Indications: Iron deficiency anemia due to chronic blood loss Take 1 tablet (325 mg) by mouth in the morning and 1 tablet (325 mg) before bedtime. 60 tablet 11 02/08/2023 01/30/2024 Discontinued loratadine 10 mg oral tablet (14 sources) take 1 tablet by mouth once daily loratadine (Claritin) 10 MG tablet Take 10 mg by mouth Daily Active Multiple Vitamins-Minerals (MULTI ADULT GUMMIES PO) (15 sources) Multiple Vitamins-Minerals (MULTI ADULT GUMMIES PO) [...] Classification Problem Date Documented Da te Episodic/Chronic Abdominal pain (1 source) Pain in female pelvis; Translations: [Pelvic and perineal pain] 11-07-2023 Episodic Acute bronchitis (13 sources) Acute infective bronchitis; Translations: [Acute bronchitis due to other specified organisms] Onset: 11-21-2023 11-21-2023 Episodic Deficiency and other anemia (4 sources) Anemia, unspecified; Translations: [ANEMIA UNSPECIFIED] Onset: 05-30-2022 Episodic Deficiency and other anemia (13 sources) Iron deficiency anemia; Translations: [Iron deficiency anemia, unspecified] Onset: 11-21-2023 11-21-2023 Episodic Menstrual disorders (2 sources) Menorrhagia; Translations: [Excessive and frequent menstruation with regular cycle] 11-07-2023 Chronic Other aftercare (7 sources) Surgical follow-up; Translations: [Encounter for follow-up examination after completed treatment for conditions other than malignant neoplasm] Onset: 01-30-2024 12-27-2023 Episodic Other female genital disorders (1 source) Pain in female genitalia on intercourse; Translations: [Unspecified dyspareunia] 11-07-2023 Chronic Past or Other Problems Problem Classification Problem [...] Test Name Value Interpretation Reference Range Facility Pathology study report docum entOrdered By: Javon Nuñez on 12-22-2023 Pathology study [facility] Other ALL CBC WITH AUTO DIFFon BASOPHILS ABSOLUTE AUTO 0 [facility] Basophils/100 WBC (Bld) 0.1 % Low 0.2 - 2.0 % [facility] Eosinophils/100 WBC (Bld) 0.2 % Low 0.9 - 7.0 % [facility] Erythrocyte distribution width (RBC) [Ratio] 13.3 % 11.0 - 15.0 % [facility] Hematocrit (Bld) [Volume fraction] 33.5 % Low 36.0 - 48.0 % [facility] Hemoglobin (Bld) [Mass/Vol] 11.2 g/dL Low 12.0 - 16.0 g/dL [facility] IMMATURE GRANULOCYTES ABS AUTO 0.03 [facility] Immature granulocytes/100 WBC (Bld) 0.3 % 0.0 - 0.5 % [facility] Interpretation and review of laboratory results Abnormal [facility] LYMPHOCYTES ABSOLUTE AUTO 2 [facility] Lymphocytes/100 WBC (Bld) 17.7 % Low 20.5 - 60.0 % [facility] MCH (RBC) [Entitic mass] 29.2 pg 26.7 - 34.0 pg [facility] MCHC (RBC) [Mass/Vol] 33.4 g/dL 29.9 - 35.2 g/dL [facility] MCV (RBC) [Entitic vol] 87.2 fL 81.0 - 99.0 fL [facility] MONOCYTES ABSOLUTE AUTO 0.9 High [facility] Monocytes/100 WBC (Bld) 7.8 % 1.7 - 12.0 % [facility] NEUTROPHILS ABSOLUTE AUTO 8.4 High [facility] Neutrophils/100 WBC (Bld) 73.9 % 43.0 - 75.0 % [facility] Platelet mean volume (Bld) [Entitic vol] 9.8 fL 9.5 - 13.5 fL [facility] TBH EO # 0 [facility] PLT 320 [facility] TB RBC 3.84 Low [facility] WBC 11.3 High [facility] ALL CBC WITH AUTO DIFFon BASOPHILS ABSOLUTE AUTO 0 [facility] Basophils/100 WBC (Bld) 0.1 % Low 0.2 - 2.0 % [facility] Eosinophils/100 WBC (Bld) 3 % 0.9 - 7.0 % [facility] Erythrocyte distribution width (RBC) [Ratio] 12.8 % 11.0 - 15.0 % [facility] Hematocrit (Bld) [Volume fraction] 39.5 % 36.0 - 48.0 % [facility] Hemoglobin (Bld) [Mass/Vol] 13.3 g/dL 12.0 - 16.0 g/dL [facility] IMMATURE GRANULOCYTES ABS AUTO 0.02 [facility] Immature granulocytes/100 WBC (Bld) 0.3 % 0.0 - 0.5 % [facility] Interpretation and review of laboratory results Abnormal [facility] LYMPHOCYTES ABSOLUTE AUTO 1.9 [facility] Lymphocytes/100 WBC (Bld) 26.5 % 20.5 - 60.0 % [facility] MCH (RBC) [Entitic mass] 29 pg 26.7 - 34.0 pg [facility] MCHC (RBC) [Mass/Vol] 33.7 g/dL 29.9 - 35.2 g/dL [facility] MCV (RBC) [Entitic vol] 86.2 fL 81.0 - 99.0 fL [facility] MONOCYTES ABSOLUTE AUTO 0.5 [facility] Monocytes/100 WBC (Bld) 6.5 % 1.7 - 12.0 % [facility] NEUTROPHILS ABSOLUTE AUTO 4.5 [facility] Neutrophils/100 WBC (Bld) 63.6 % 43.0 - 75.0 % [facility] Platelet mean volume (Bld) [Entitic vol] 9.5 fL 9.5 - 13.5 fL [facility] TBH EO # 0.2 [facility] PLT 316 [facility] RBC 4.58 [facility] WBC 7 [facility] 12-20-2023 L -- ---- Specimen: [id number] Received: 12/20/23 Status: PATIENCE Alfredo Num: [id number] Spec Type: Surgical Subm Dr: Amilcar Still Tissues: A Uterus w/ or w/o tubes ovaries except neoplastic or prolap (UTERUS,CERVIX, Procedures: ARDEN/Mamie, Gross/Micro L5 ---- Age/ Patient Sex Location Account Attending Physician ---- MarlonBriana 38/F [facility] [id number] Amilcar Still ---- SPEC NUM: [id number] RECD: 12/20/23 STATUS: PATIENCE ALFREDO NUM: [id number] SHARRI: 12/20/[address]: Amilcar Still ENTERED: 12/20/[address]: Estephania,Lab SPEC TYPE: Surgical DEPT: [facility] ENTERED BY: [id number] RECV BY: [id number] ORDERED: HE/9, Gross/Micro L5 ORDERED: HE/9, Gross/Micro L5 Pathological Diagnosis Uterus with cervix, bilateral fallopian tubes, total hysterectomy and bilateral salpingectomy: -Cervix with mild nonspecific chronic cervicitis without dysplasia -Corpus with inactive to weakly type proliferative endometrium, including rare mitosis in at least 3 glands are noticed -Incidental patchy mild nonspecific hemorrhage and edema in superficial uterine mucosa -Incidental focal moderate adenomyosis -No evidence of endometrial hyperplasia or atypia -Focal mild suspected scarring at the lower uterine segment -Intact bilateral fimbriated fallopian tubes without significant histopathological changes except 1 tiny Walthard cyst on the longer tube Clinical Information Menorrhagia, pelvic pain, dyspareunia Gross Description Part A is received in formalin labeled with the patients name, , and uterus, cervix, bilateral tubes Is a 121 g hysterectomy specimen, which consists of a uterine corpus with attached cervix, resected with detached bilateral fallopian tubes and without bilateral ovaries. The uterine corpus is symmetrical, 4.5 cm cornu to cornu, 4.5 cm anterior to posterior and 13 cm fundus to ectocervical face. The serosa is zhao-pink, smooth and ---- Specimen: [id number] Received: 12/20/23 Status: PATIENCE Alfredo Num: [id number] Spec Type: Surgical Subm Dr: Amilcar Still Tissues: A Uterus w/ or w/o tubes ovaries except neoplastic or prolap (UTERUS,CERVIX, Procedures: , Gross/Micro L5 ---- Patient: Briana Mason [id number] (Continued) ---- Specimen: [id number] Received: 12/20/23 (Continued) Gross Description (Continued) Signed (signature on file) Javon Nuñez MD 12/22/23 1808 ---- Specimen: [id number] Received: 12/20/23 Status: PATEINCE Alfredo Num: [id number] Spec Type: Surgical Subm Dr: Amilcar Still Tissues: A Uterus w/ or w/o tubes ovaries except neoplastic or prolap (UTERUS,CERVIX, Procedures: , Gross/Micro L5 ---- Patient: MarlonBriana Wagner [id number] (Continued) ---- Specimen: [id number] Received: 12/20/23 (Continued) Gross Description (Continued) glistening with dense adhesions on the anterior aspect. The cervix is 1.5 cm in length by up to 2.7 cm in diameter. The ectocervical face exhibits t an-pink, smooth and glistening mucosa with a slitlike cervical os, up to 1 cm in diameter. The specimen is opened to reveal a zhao-pink, wrinkled and glistening endocervical canal with a depressed area at the anterior lower uterine segment, 1 x 0.5 x 0.6 cm.. The endometrial cavity is zhao-pink, focally erythematous, glistening and triangular, 4 x 2.8 cm with endometrium, up to 0.2 cm in thickness. The myometrium is zhao-pink and trabecular, up to 2.5 cm in thickness. The bilateral fallopian tubes are received detached, unoriented. The shorter fallopian tube is 5 x 0.8 cm, and the longer fallopian tube is 8 x 0.9 cm. The serosa is vieyra-purple, smooth and glistening with a filmy adhesion noted at the fimbriated end of the shorter tube. The shorter tube is inked black. Serial sections reveal pinpoint lumen within each segment. Cassettes: A1 Cervix A2 Serosa (to include posterior cul-de-sac and focal adhesions) A3-A4 Full-thickness cross-sections of anterior endomyometrium (to include depression at anterior lower u (more content not included)... Normal [facility] TBH PREG QUANT HCGon 024 HCG QUANTITATIVE <1 mIU/mL [facility] Comment on above: 5-50 0.2-1 WEEK 50-500 1-2 WEEKS 100-5,000 2-3 WEEKS 500-10,000 3-4 WEEKS 1,000-50,000 4-5 WEEKS 10,000-100,000 5-6 WEEKS 15,000-200,000 6-8 WEEKS 10,000-100,000 2-[facility] AND SCREENon 2023 ABO and Rh group Nom (Bld) Blood group O Rh(D) negative [facility] CBC WITH AUTO DIFFon BASOPHILS ABSOLUTE AUTO 0.0 [facility] Basophils/100 WBC (Bld) 0.3 % 0.2 - 2.0 % [facility] Eosinophils/100 WBC (Bld) 4.5 % 0.9 - 7.0 % [facility] Erythrocyte distribution width (RBC) [Ratio] 12.6 % 11.0 - 15.0 % [facility] Hematocrit (Bld) [Volume fraction] 44.5 % 36.0 - 48.0 % [facility] Hemoglobin (Bld) [Mass/Vol] 14.7 g/dL 12.0 - 16.0 g/dL [facility] IMMATURE GRANULOCYTES ABS AUTO 0.02 [facility] Immature granulocytes/100 WBC (Bld) 0.3 % 0.0 - 0.5 % [facility] LYMPHOCYTES ABSOLUTE AUTO 1.9 [facility] Lymphocytes/100 WBC (Bld) 27.5 % 20.5 - 60.0 % [facility] MCH (RBC) [Entitic mass] 29.3 pg 26.7 - 34.0 pg [facility] MCHC (RBC) [Mass/Vol] 33.0 g/dL 29.9 - 35.2 g/dL [facility] MCV (RBC) [Entitic vol] 88.6 fL 81.0 - 99.0 fL [facility] MONOCYTES ABSOLUTE AUTO 0.5 [facility] Monocytes/100 WBC (Bld) 6.8 % 1.7 - 12.0 % [facility] NEUTROPHILS ABSOLUTE AUTO 4.3 [facility] Neutrophils/100 WBC (Bld) 60.6 % 43.0 - 75.0 % [facility] Platelet mean volume (Bld) [Entitic vol] 9.6 fL 9.5 - 13.5 fL [facility] TBH EO # 0.3 [facility] TBH PLT 327 [facility] TB RBC 5.02 [facility] WBC 7.1 [facility] HCG ( test) Ql (U)O rdered By: Sue Joseph on 11-07-2023 Interpretation and review of laboratory results Normal [facility] Work Phone: Preg Test, Ur Negative [facility] Work Phone: [facility] Work Phone: [facility] 11-07-2023 L Specimen: [id number] Received: 11/08/23 Status: PATIENCE Alfredo Num: [id number] Spec Type: Surgical Subm Dr: Amilcar Still Tissues: A Endometrium - Biopsy (ENDOMETRIAL BX) Procedures: HE/2, Gross/Micro L4 Age/ Patient Sex Location Account Attending Physician Briana Mason 38/F [facility] [id number] Amilcar Still SPEC NUM: [id number] RECD: 11/08/23 STATUS: PATIENCE ALFREDO NUM: [id number] SHARRI: 11/07/23- SUBM DR: Amilcar Still ENTERED: 11/08/[address] [facility] DR: Estephania,Lab SPEC TYPE: Surgical DEPT: [facility] ENTERED BY: [id number] RECV BY: [id number] ORDERED: HE/2, Gross/Micro L4 ORDERED: HE/2, Gross/Micro [...] examinations are performed supporting the above interpretation ---- Specimen: [id number] Received: 11/08/23 Status: PATIENCE Wahldexter Num: [id number] Spec Type: Surgical Subm Dr: Amilcar Still Tissues: A Endometrium - Biopsy (ENDOMETRIAL BX) Procedures: HE/Burak, Gross/Micro L4 ---- Patient: Briana Mason [id number] (Continued) ---- Specimen: [id number] Received: 11/08/23 (Continued) Signed (signature on file) Javon Nuñez MD 11/10/23 1053 ---- Specimen: [id number] Received: 11/08/23 Status: PATIENCE Alfredo Num: [id number] Spec Type: Surgical Subm Dr: Amilcar Still Tissues: A Endometrium - Biopsy (ENDOMETRIAL BX) Procedures: HE/2, Gross/Micro L4 ---- Patient: Briana aMson [id number] (Continued) ---- Specimen: [id number] Received: 11/08/23 (Continued) CPT Codes 00663 ---- ---- Specimen: [id number] Received: 11/08/23 Status: PATIENCE Alfredo Num: [id number] Spec Type: Surgical Subm Dr: Amilcar Still Tissues: A Endometrium - Biopsy (ENDOMETRIAL BX) Procedures: ARDEN/Burak, Gross/Micro L4 ---- Patient: Briana Mason [id number] (Continued) ---- Signed (signature on file) Javon Nuñez MD 11/10/23 1053 Normal [facility] OCC BLD IMMUNO SCREENon 05-09 OCCULT BLOOD Negative Normal NEGATIVE [facility] Comment on above: Performed By: #### H EPBSRF #### [facility] [address] [place] [address] Dr. Yanely Nuñez FERRITINon 05-28-2022 Ferritin [Mass/Vol] 5.0 ng/mL Critically low 6.2-137.0 T [facility] Comment on above: Performed By: #### I TWIN VARELA, FERR #### [facility] [address] [place] [address] Dr. Yanely Nuñez IRONon 05-28-2022 Iron [Mass/Vol] 14.0 ug/dL Critically low 50.0-170.0 [facility] Comment on above: Performed By: #### I NICHOLE VITB12, FERR #### [facility] [address] [place] [address] Dr. Yanely Nuñez VITAMIN B12on 05-28-2022 Cobalamin (Vitamin B12) [Mass/Vol] 929.0 pg/mL Normal 193.0-986.0 [facility] Comment on above: Performed By: #### I NICHOLE VITB12, FERR #### [facility] [address] [place] [address] Dr. Yanely Nuñez CBC AUTO DIFFon 05-27-2022 BASO # 0.0 103/ul Normal 0.0-0.1 [facility] Comment on above: Performed By: #### C BC #### [facility] [address] [place] [address] Dr. Yanely Nuñez Basophils/100 WBC (Bld) 0.1 % Critically low 0.2-2.0 [facility] Comment on above: Performed By: #### C BC #### [facility] [address] [place] [address] Dr. Yanely Nuñez EO # 0.1 103/ul Normal 0.0-0.7 [facility] Comment on above: Performed By: #### C BC #### [facility] [address] [place] [address] Dr. Yanely Nuñez Eosinophils/100 WBC (Bld) 2.0 % Normal 0.9-7.0 [facility] Comment on above: Performed By: #### C BC #### [facility] [address] [place] [address] Dr. Yanely Nuñez Erythrocyte distribution width (RBC) [Ratio] 17.1 % Critically high 11.0-15.0 [facility] Comment on above: Performed By: #### C BC #### [facility] [address] [place] [address] Dr. Yanely Nuñez Hematocrit (Bld) [Volume fraction] 32.1 % Critically low 36.0-48.0 [facility] Comment on above: Performed By: #### C BC #### [facility] [address] [place] [address] Dr. Yanely Nuñez Hemoglobin (Bld) [Mass/Vol] 9.3 g/dL Critically low 12.0-16.0 [facility] Comment on above: Performed By: #### C BC #### [facility] [address] [place] [address] Dr. Yanely Nuñez IG # 0.02 10e3/ul Normal 0.00-0.03 [facility] Comment on above: Performed By: #### C BC #### [facility] [address] [place] [address] Dr. Yanely Nuñez IG % 0.3 % Normal 0.0-0.5 [facility] Comment on above: Performed By: #### C BC #### [facility] [address] [place] [address] Dr. Yanely Nuñez LYMPH # 1.5 103/ul Normal 1.2-3.8 [facility] Comment on above: Performed By: #### C BC #### [facility] [address] [place] [address] Dr. Yanely Nuñez Lymphocytes/100 WBC (Bld) 22.5 % Normal 20.5-60.0 [facility] Comment on above: Performed By: #### C BC #### [facility] [address] [place] [address] Dr. Yanely Nuñez MANUAL DIFF REQ NO Normal [facility] Comment on above: Performed By: #### C BC #### [facility] [address] [place] [address] Dr. Yanely Nuñez MCH (RBC) [Entitic mass] 20.3 pg Critically low 26.7-34.0 [facility] Comment on above: Performed By: #### C BC #### [facility] [address] [place] [address] Dr. Yanely Nuñez MCHC (RBC) [Mass/Vol] 29.0 g/dL Critically low 29.9-35.2 [facility] Comment on above: Performed By: #### C BC #### [facility] [address] [address] [address] Yanely Nuñez MCV (RBC) [Entitic vol] 70.1 fL Critically low 81.0-99.0 [facility] Comment on above: Performed By: #### C BC #### [facility] [address] [address] [address] Yanely Nuñez MONO # 0.5 103/ul Normal 0.3-0.8 [facility] Comment on above: Performed By: #### C BC #### [facility] [address] [address] [address] Yanely Nuñez Monocytes/100 WBC (Bld) 7.0 % Normal 1.7-12.0 [facility] Comment on above: Performed By: #### C BC #### [facility] [address] [address] [address] Yanely Nuñez NEUT # 4.7 103/ul Normal 1.4-6.5 [facility] Comment on above: Performed By: #### C BC #### [facility] [address] [address] [address] Yanely Nuñez Neutrophils/100 WBC (Bld) 68.1 % Normal 43.0-75.0 [facility] Comment on above: Performed By: #### C BC #### [facility] [address] [address] [address] Yanely Nuñez Platelet mean volume (Bld) [Entitic vol] 9.9 fL Normal 9.5-13.5 [facility] Comment on above: Performed By: #### C BC #### [facility] [address] [address] [address] Yanely Nuñez PLT 488 103/ul Critically high 150-450 [facility] Comment on above: Performed By: #### C BC #### [facility] [address] [address] [address] Yanely Nuñez RBC 4.58 106/ul Normal 4.20-5.40 [facility] Comment on above: Performed By: #### C BC #### [facility] [address] [address] [address] Yanely Nuñez WBC 6.9 103/ul Normal 4.0-11.0 [facility] Comment on above: Performed By: #### C BC #### [facility] [address] [address] [address] Yanely Nuñez GLYCOHEMOGLOBIN A1Con 2022 ADA RECOMMENDATION SEE BELOW Normal [facility] Comment on above: Result Comment: ADA RECOMMENDED LIMIT 4.0 - 6.0 ADA THERAPEUTIC TARGET < 7.0 ACTION SUGGESTED > 7.0 Performed By: #### A 1C #### [facility] [address] [place] [address] Dr. Yanely Nuñez Glucose [Mass/Vol] 114 mg/dL Normal [facility] Comment on above: Performed By: #### A 1C #### [facility] [address] [place] [address] Dr. Yanely Nuñez HbA1c (Bld) [Mass fraction] 5.6 % Normal 4.5-6.2 [facility] Comment on above: Performed By: #### A 1C #### [facility] [address] [place] [address] Dr. Yanely Nuñez LIPID PROFILEon 05-27-2022 CHOL-HDL RATIO NORM SEE BELOW Normal [facility] Comment on above: Result Comment: 3.3 - 4.4 LOW RISK 4.4 - 7.1 AVERAGE RISK 7.1 - 11.0 MODERATE RISK >11.0 HIGH RISK Performed By: #### C MP, LIPID, TSH #### [facility] [address] [place] [address] Dr. Yanely Nuñez Cholesterol [Mass/Vol] 207 mg/dL Critically high <=200 [facility] Comment on above: Performed By: #### C MP, LIPID, TSH #### [facility] [address] [place] [address] Dr. Yanely Nuñez Cholesterol in HDL [Mass/Vol] 54 mg/dL Normal 40-60 [facility] Comment on above: Performed By: #### C MP, LIPID, TSH #### [facility] [address] [address] [address] Yanely Nuñez Cholesterol in LDL [Mass/Vol] 141.0 mg/dL Normal [facility] Comment on above: Performed By: #### C MP, LIPID, TSH #### [facility] [address] [address] [address] Ynaely Nuñez Cholesterol.total/Ch olesterol in HDL [Mass ratio] 3.8 {ratio} Normal [facility] Comment on above: Performed By: #### C MP, LIPID, TSH #### [facility] [address] [address] [address] Yanely Nuñez HDL NORMAL > or = 60 mg/dl - LO W CARDIOVASCULAR RISK <40 mg/dl - HIGH CARDIOVASCULAR RISK Normal [facility] Comment on above: Performed By: #### C MP, LIPID, TSH #### [facility] [address] [place] [address] Dr. Yanely Nuñez LDL CALC NORMAL SEE BELOW Normal [facility] Comment on above: Result Comment: <100 mg/dl OPTIMAL 100 - 129 mg/dl NEAR OR ABOVE OPTIMAL 130 - 159 mg/dl BORDERLINE HIGH 160 - 189 mg/dl HIGH >190 mg/dl VERY HIGH Performed By: #### C MP, LIPID, TSH #### [facility] [address] [place] [address] Dr. Yanely Nuñez Triglyceride [Mass/Vol] 60 mg/dL Normal <=150 [facility] Comment on above: Performed By: #### C MP, LIPID, TSH #### [facility] [address] [address] [address] Yanely Nuñez VLDL CALC 12.0 mg/dL Normal [facility] Comment on above: Performed By: #### C MP, LIPID, TSH #### [facility] [address] [place] [address] Dr. Yanely Nuñez PROF 14(COMP METB)on 023 Albumin [Mass/Vol] 4.0 g/dL Normal 3.4-5.0 [facility] Comment on above: Performed By: #### C MP, LIPID, TSH #### [facility] [address] [address] [address] Yanely Nuñez Albumin/Globulin [Mass ratio] 1.0 {ratio} Normal [facility] Comment on above: Performed By: #### C MP, LIPID, TSH #### [facility] [address] [address] [address] Yanely Nuñez ALP [Catalytic activity/Vol] 57 U/L Normal 46-116 [facility] Comment on above: Performed By: #### C MP, LIPID, TSH #### [facility] [address] [address] [address] Yanely Nuñez ALT [Catalytic activity/Vol] 111 U/L Critically high 14-59 [facility] Comment on above: Performed By: #### C MP, LIPID, TSH #### [facility] [address] [address] [address] Yanely Nuñez Anion gap [Moles/Vol] 13.1 mmol/L Normal [facility] Comment on above: Performed By: #### C MP, LIPID, TSH #### [facility] [address] [address] [address] Yanely Nuñez AST [Catalytic activity/Vol] 34 U/L Normal 15-37 [facility] Comment on above: Performed By: #### C MP, LIPID, TSH #### [facility] [address] [address] [address] Yanely Nuñez Bilirubin [Mass/Vol] 0.4 mg/dL Normal 0.2-1.0 [facility] Comment on above: Performed By: #### C MP, LIPID, TSH #### [facility] [address] [address] [address] Yanely Nuñez Calcium [Mass/Vol] 9.5 mg/dL Normal 8.5-10.1 [facility] Comment on above: Performed By: #### C MP, LIPID, TSH #### [facility] [address] [address] [address] Yanely Nuñez Chloride [Moles/Vol] 104 mmol/L Normal 98-107 [facility] Comment on above: Performed By: #### C MP, LIPID, TSH #### [facility] [address] [address] [address] Yanely Nuñez CO2 [Moles/Vol] 27.2 mmol/L Normal 21.0-32.0 [facility] Comment on above: Performed By: #### C MP, LIPID, TSH #### [facility] [address] [address] [address] Yanely Nuñez Creatinine [Mass/Vol] 0.76 mg/dL Normal 0.55-1.02 [facility] Comment on above: Performed By: #### C MP, LIPID, TSH #### [facility] [address] [address] [address] Yanely Nuñez EGFR-AF EQUATORIAL GUINEAN >60 Normal >=60 [facility] Comment on above: Performed By: #### C MP, LIPID, TSH #### [facility] [address] [place] [address] Dr. Yanely Nuñez EGFR-NON AF EQUATORIAL GUINEAN >60 Normal >=60 [facility] Comment on above: Performed By: #### C MP, LIPID, TSH #### [facility] [address] [address] [address] Yanely Nuñez Globulin (S) [Mass/Vol] 4.0 g/dL Normal [facility] Comment on above: Performed By: #### C MP, LIPID, TSH #### [facility] [address] [address] [address] Yanely Nuñez Glucose [Mass/Vol] 86 mg/dL Normal 74-106 [facility] Comment on above: Performed By: #### C MP, LIPID, TSH #### [facility] [address] [address] [address] Yanely Nuñez Potassium [Moles/Vol] 4.3 mmol/L Normal 3.5-5.1 [facility] Comment on above: Performed By: #### C MP, LIPID, TSH #### [facility] [address] [address] [address] Yanely Nuñez Protein [Mass/Vol] 8.0 g/dL Normal 6.4-8.2 [facility] Comment on above: Performed By: #### C MP, LIPID, TSH #### [facility] [address] [address] [address] Yanely Nuñez Sodium [Moles/Vol] 140 mmol/L Normal 136-145 [facility] Comment on above: Performed By: #### C MP, LIPID, TSH #### [facility] [address] [place] [address] Dr. Yanely Nuñez Urea nitrogen [Mass/Vol] 13.0 mg/dL Normal 7.0-18.0 [facility] Comment on above: Performed By: #### C MP, LIPID, TSH #### [facility] [address] [place] [address] Dr. Yanely Nuñez Urea nitrogen/Creatinine [Mass ratio] 17.1 mg/mg Normal [facility] Comment on above: Performed By: #### C MP, LIPID, TSH #### [facility] [address] [place] [address] Dr. Yanely Nuñez TSHon 05-27-2022 TSH 0.862 uIU/mL Normal 0.358-3.740 [facility] Comment on above: Performed By: #### C MP, LIPID, TSH #### [facility] [address] [place] [address] Dr. Yanely Nuñez QUANTIFERON TB GOLD PLUSon 1 QuantiFERON Criteria Comment Normal [facility] Comment on above: Result Comment: Leoncio [...] test. Performed By: #### H EPBSRF #### [facility] [address] [place] [address] Dr. Yanely Nuñez QuantiFERON Incubation Incubation performed. Normal [facility] Comment on above: Performed By: #### H EPBSRF #### [facility] [address] [place] [address] Dr. Yanely Nuñez QuantiFERON Mitogen Value >10.00 Normal [facility] Comment on above: Performed By: #### H EPBSRF #### [facility] [address] [place] [address] Dr. Yanely Nuñez QuantiFERON Nil Value 0.03 IU/mL Normal [facility] Comment on above: Performed By: #### H EPBSRF #### [facility] [address] [place] [address] Dr. Yanely Nuñez QuantiFERON TB1 Ag Value 0.04 IU/mL Normal [facility] Comment on above: Performed By: #### H EPBSRF #### [facility] [address] [place] [address] Dr. Yanely Nuñez QuantiFERON TB2 Ag Value 0.03 IU/mL Normal [facility] Comment on above: Performed By: #### H EPBSRF #### [facility] [address] [place] [address] Dr. Yanely Nuñez QuantiFERON-TB Gold Plus Negative Normal Negative [facility] Comment on above: Result Comment: No r esponse to M tuberculosis antigens detected. Infection with M tuberculosis is unlikely, but high risk individuals should be considered for additional testing (ATS/IDSA/CDC Clinical Practice Guidelines, 2017). The reference range is an Antigen minus Nil result of <0.35 IU/mL. Chemiluminescence immunoassay methodology Performed By: #### H EPBSRF #### [facility] [address] [place] [address] Dr. Yanely Nuñez HEPATITIS B SURFACE ANTIBODY , QUANTon 02-05-2022 Hepatitis B Surf AB Quant >1000.0 Normal Immunity>9.9 [facility] Comment on above: Result Comment: Stat us of Immunity Anti-HBs Level Inconsistent with Immunity 0.0 - 9.9 Consistent with Immunity >9.9 Performed By: #### H EPBSRF #### [facility] [address] [place] [address] Dr. Yanely Nuñez MMR IMMUNITYon 02-05-2022 Mumps Abs, IgG 56.4 AU/mL Normal Immune >10.9 [facility] Comment on above: Result Comment: Nega tive <9.0 Equivocal 9.0 - 10.9 Positive >10.9 A positive result generally indicates past exposure to Mumps virus or previous vaccination. Performed By: #### H EPBSRF #### [facility] [address] [place] [address] Dr. Yanely Nuñez Rubella Antibodies, IgG 2.90 index Normal Immune >0.99 [facility] Comment on above: Result Comment: Non- immune <0.90 Equivocal 0.90 - 0.99 Immune >0.99 Performed By: #### H EPBSRF #### [facility] [address] [place] [address] Dr. Yanely Nuñez Rubeola Ab, IgG 183.0 AU/mL Normal Immune >16.4 [facility] Comment on above: Result Comment: Nega tive <13.5 Equivocal 13.5 - 16.4 Positive >16.4 Presence of antibodies to Rubeola is presumptive evidence of immunity except when acute infection is suspected. Performed By: #### H EPBSRF #### [facility] [address] [place] [address] Dr. Yanely Nuñez VARICELLA IGG ABon 2 Varicella Zoster IgG 483 index Normal Immune >165 [facility] Comment on above: Result Comment: Nega tive <135 Equivocal 135 - 165 Positive >165 A positive result generally indicates exposure to the pathogen or administration of specific immunoglobulins, but it is not indication of active infection or stage of disease. Performed By: #### H EPBSRF #### [facility] [address] [place] [address] Dr. Yanely Nuñez PAP ACOG PANEL 2: 30 to 65on 11-25-2021 . . Normal [facility] Comment on above: Result Comment: Perf ormed at: WB Performed By: #### [id number] #### [facility] [address] [place] [address] Dr. Yanely Nuñez Age Gdln ACOG Testing 30-65 Normal [facility] Comment on above: Performed By: #### [id number] #### [facility] [address] [address] [address] Yanely Nuñez DIAGNOSIS: Comment Normal [facility] Comment on above: Result Comment: NEGA TIVE FOR INTRAEPITHELIAL LESION OR MALIGNANCY. Performed at: WB Performed By: #### [id number] #### [facility] [address] [address] [address] Yanely Nuñez HPV Aptima Negative Normal Negative [facility] Comment on above: Result Comment: This nucleic acid amplification test detects fourteen high-risk HPV types (16,18,31,33,35,39,45,51,52,56,58,59,66,68) without differentiation. Performed at: =G Performed By: #### [id number] #### [facility] [address] [place] [address] Dr. Yanely Nuñez Methodology: Comment Normal [facility] Comment on above: Result Comment: This liquid based ThinPrep(R) pap test was screened with the use of an image guided system. Performed at: WB Performed By: #### [id number] #### [facility] [address] [place] [address] Dr. Yanely Nuñez Note: Comment Normal [facility] Comment on above: Result Comment: The Pap smear is a screening test designed to aid in the detection of premalignant and malignant conditions of the uterine cervix. It is not a diagnostic procedure and should not be used as the sole means of detecting cervical cancer. Both false-positive and false-negative reports do occur. . Performed at: WB Performed By: #### [id number] #### [facility] [address] [address] [address] Yanely Nuñez Performed by: Comment Normal [facility] Comment on above: Result Comment: Darlin Cline, Revenue Settlements Administrator (ASCP) Performed at: WB Performed By: #### [id number] #### [facility] [address] [address] [address] Yanely Nuñez Specimen adequacy: Comment Normal [facility] Comment on above: Result Comment: Sati sfactory for evaluation. Endocervical and/or squamous metaplastic cells (endocervical component) are present. Performed at: WB Performed By: #### [id number] #### [facility] [address] [place] [address] Dr. Yanely Nuñez Vital Signs Date Time Vital Sign Value Performing Clinician Yajaira bradley 01-30-2024 09:47-0500 Body mass index (BMI) [Ratio] 29.35 kg/m2 Adamaris Leonila PA Work Phone: [facility] 01-30-2024 09:47-0500 Body weight 77.56 kg Adamaris [place] PA Work Phone: [facility] 01-30-2024 09:47-0500 Diastolic blood pressure 78 mm[Hg] Adamaris Leonila PA Work Phone: [facility] 01-30-2024 09:47-0500 Systolic blood pressure 120 mm[Hg] Adamaris Leonila PA Work Phone: [facility] 12-27-2023 13:08-0500 Body mass index (BMI) [Ratio] 29.32 kg/m2 Adamaris [place] PA Work Phone: [facility] 12-27-2023 13:08-0500 Body weight 77.47 kg Adamaris [place] PA Work Phone: [facility] 12-27-2023 13:08-0500 Diastolic blood pressure 74 mm[Hg] Adamaris [place] PA Work Phone: [facility] 12-27-2023 13:08-0500 Systolic blood pressure 114 mm[Hg] Adamaris [place] PA Work Phone: [facility] 11-21-2023 19:00-0400 Body height 162.6 cm Danii Daly [employer] Work Phone: [facility] 11-21-2023 19:00-0400 Body mass index (BMI) [Ratio] 29.9 kg/m2 Danii Daly [employer] Work Phone: [facility] 11-21-2023 19:00-0400 Body temperature 99.7 [degF] Danii Daly [employer] Work Phone: [facility] 11-21-2023 19:00-0400 Body weight 79.02 kg Danii Daly [employer] Work Phone: [facility] 11-21-2023 19:00-0400 Diastolic blood pressure 76 mm[Hg] Daniiтатьяна Urenaholz [employer] Work Phone: [facility] 11-21-2023 19:00-0400 Heart rate 110 /min Daniiтатьяна Urenaholz [employer] Work Phone: [facility] 11-21-2023 19:00-0400 Respiratory rate 19 /min Daniiтатьяна Urenaholz [employer] Work Phone: [facility] 11-21-2023 19:00-0400 SaO2% (BldA) [Mass fraction] 96 % Danii Urenaholz [employer] Work Phone: [facility] 11-21-2023 19:00-0400 Systolic blood pressure 132 mm[Hg] Danii Urenaholz [employer] Work Phone: [facility] 11-07-2023 16:01-0400 Body mass index (BMI) [Ratio] 29.59 kg/m2 Amilcar Cheko DO Work Phone: [facility] 11-07-2023 16:01-0400 Body weight 78.2 kg Amilcar Cheko DO Work Phone: [facility] 11-07-2023 16:01-0400 Diastolic blood pressure 78 mm[Hg] Amilcar Cheko DO Work Phone: [facility] 11-07-2023 16:01-0400 Systolic blood pressure 116 mm[Hg] Amilcar Cheko DO Work Phone: [facility] Healthcare Encounters Encounter Date Encounter Type Care Provider Facility Start: 01-30-2024 End: 01-30-2024 Anusha GAYTAN Work Phone: [facility] Start: 01-30-2024 End: 01-30-2024 Anusha GAYTAN Work Phone: [facility] Start: 01-30-2024 End: 01-30-2024 Postop follow up visit related to original px Adamaris Mercado PA Work Phone: [facility] Comment on above: Postop check; Other iron deficiency anemia Start: 01-30-2024 End: 01-30-2024 ambulatory ADAMARIS MERCADO Not Available Start: 12-27-2023 End: 12-27-2023 Bamboo flowsheet Adamaris Mercado PA Work Phone: [facility] Start: 12-27-2023 End: 12-27-2023 Bamboo flowsheet Adamaris Mercado PA Work Phone: [facility] Start: 12-27-2023 End: 12-27-2023 Postop follow up visit related to original px Adamaris Mercado PA Work Phone: [facility] Comment on above: Postop check Start: 12-27-2023 End: 12-27-2023 ambulatory ADAMARIS MERCADO Not Available Start: 12-21-2023 End: 12-21-2023 Clinisync Result Encounter Generic External Data Provider [facility] Unsolicited Start: 12-21-2023 End: 12-21-2023 Clinisync Result Encounter Generic External Data Provider [facility] External [facility] Unsolicited Start: 12-20-2023 End: 12-20-2023 Clinisync Result Encounter Amilcar Cheko DO Work Phone: [facility] Unsolicited Start: 12-20-2023 End: 12-20-2023 Clinisync Result Encounter Amilcar Cheko DO Work Phone: [facility] Unsolicited Start: 12-20-2023 End: 12-20-2023 ambulatory Danii Daly Work Phone: [facility] Work Phone: Start: 12-20-2023 End: 12-20-2023 Departed Referred Danii Daly Work Phone: [facility] Start: 12-14-2023 End: 12-14-2023 Clinisync Result Encounter Amilcar Cheko DO Work Phone: [facility] Unsolicited Start: 12-14-2023 End: 12-14-2023 Clinisync Result Encounter Amilcar Cheko DO Work Phone: [facility] Unsolicited Start: 11-21-2023 End: 11-21-2023 Office outpatient visit 15 minutes Danii Daly [employer] Work Phone: [facility] Comment on above: Acute bronchitis due to other specified organisms (Primary Dx) Start: 11-21-2023 End: 11-21-2023 ambulatory DANII DALY Not Available Start: 11-21-2023 End: 11-21-2023 Bamboo flowsheet Danii Daly [employer] Work Phone: [facility] Start: 11-21-2023 End: 11-21-2023 Bamboo flowsheet Danii Daly [employer] Work Phone: [facility] Start: 11-14-2023 End: 11-14-2023 Clinisync Result Encounter Generic External Data Provider [facility] External [facility] Unsolicited Start: 11-14-2023 End: 11-14-2023 Clinisync Result Encounter Generic External Data Provider [facility] External [facility] Unsolicited Start: 11-07-2023 End: 11-07-2023 Patient encounter procedure Amilcar Cheko DO Work Phone: [facility] Comment on above: Pre-op examination; Menorrhagia with regular cycle; Pelvic pain in female; Dyspareunia in female; Dysmenorrhea Start: 11-07-2023 End: 11-07-2023 Preprocedural examination done Amilcar Cheko DO Work Phone: [facility] Start: 11-07-2023 End: 11-07-2023 ambulatory Danii Daly Work Phone: [facility] Work Phone: Start: 11-07-2023 End: 11-07-2023 Departed Referred Danii Marshhholz Work Phone: [facility] Start: 11-07-2023 End: 11-07-2023 Bamboo flowsheet Amilcar Cheko DO Work Phone: [facility] Start: 11-07-2023 End: 11-07-2023 Bamboo flowsheet Amilcar Cheko DO Work Phone: [facility] Start: 12-17-2022 End: 12-17-2022 ambulatory Danii Valdez [employer]ab[employer] Work Phone: [facility] Work Phone: Start: 12-17-2022 End: 12-17-2022 Patient encounter procedure Danii Addy Work Phone: [facility] [place] Work Phone: Start: 12-10-2022 End: 12-10-2022 ambulatory Danii Valdez Salmatirsogabby Work Phone: [facility] Work Phone: Start: 12-10-2022 End: 12-10-2022 Patient encounter procedure Danii Salmatirsoraisaderick Work Phone: [facility] Work Phone: Start: 05-31-2022 Encounter for genera l adult medical examination without abnormal findings NAYELY DALY [facility] Start: 05-30-2022 End: 05-30-2022 ambulatory NAYELY DALY Facility:[facility] Start: 05-28-2022 End: 05-29-2022 ambulatory NAYELY DALY Facility:[facility] Start: 05-27-2022 End: 05-28-2022 ambulatory NAYELY DALY Facility:[facility] Start: 05-27-2022 End: 05-28-2022 Encounter for general adult medical examination without abnormal findings NAYELY DALY Facility:[facility] Start: 02-03-2022 End: 02-04-2022 ambulatory PHONG OSEI Facility:[facility] Start: 11-18-2021 End: 11-18-2021 ambulatory AMILCAR CHEKO Facility:[facility] Procedures Date Procedure Procedure Detail Performing Clinician Start: 12-21-2023 ALL CBC WITH AUTO DIFF Amilcar Cheko DO Work Phone: Start: 12-20-2023 ALL CBC WITH AUTO DIFF Generic External Data Provider Start: 12-20-2023 [facility] PREG QUANT HCG Core y Cheko DO Work Phone: Start: 12-14-2023 Antibody screen Amilcar F azio DO Work Phone: Start: 12-14-2023 ALL TYPE AND SCREEN Gen isreal External Data Provider Start: 11-14-2023 ALL CBC WITH AUTO DIFF Amilcar Cheko DO Work Phone: Start: 11-07-2023 Urine test visual color cmprsn meths Amilcar Cheko DO Work Phone: Start: 12-17-2022 Pelvic echography Danii Addy Work Phone: Start: 12-17-2022 Transvaginal echography Danii [employer] Work Phone: Start: 12-10-2022 Bilateral mammography L evelyn Addy Work Phone: Plan of Treatment Date Care Activity Detail Author Start: 01-30-2024 End: 01-30-2024 Patient encounter procedure [facility] Comment on above: Postop check Start: 12-27-2023 End: 12-27-2023 Patient encounter procedure 12/27/2023 1:00 PM EST Office Visit [facility] [address] [place] [address] Adamaris Mercado PA [address] [place] [address] Arrived [facility] Comment on above: Arrived Start: 12-20-2023 End: 12-20-2023 Patient encounter procedure 12/20/2023 6:00 AM EST Procedure Visit [facility] Cheko, Amilcar, DO [address] [facility] [address] [place] [address] [facility] Start: 11-24-2023 End: 11-24-2023 Patient encounter procedure 11/24/2023 1:00 PM EDT Procedure Visit [facility] Amilcar Still, DO [address] [facility] [address] [place], [place] [id number] [facility] Start: 11-21-2023 End: 11-21-2023 Patient encounter procedure 11/21/2023 7:00 PM EDT Office Visit [facility] [address] [place] [address] Danii Daly, [employer] [address] [place] [address] Arrived [facility] Comment on above: Arrived Start: 11-07-2023 End: 11-07-2023 Patient encounter procedure 11/07/2023 3:30 PM EDT Consult [facility] [address] [place] [id number] Cheko Amilcar, DO [address] [facility] [place] [address] Arrived [facility] Comment on above: Arrived Start: 10-09-2023 Influenza vaccination Influenza Vacc ine (#1) [facility] Start: 06-23-2015 Screening for malign ant neoplasm of cervix [facility] Start: 2006 Screening for malign ant neoplasm of cervix Pap Smear [facility] Biopsy endometrium Biopsy endome trium Procedures Routine Menorrhagia with regular cycle Ordered: 11/07/2023 [facility] Work Phone: Comment on above: Ordered: 11/07/2023 CBC W Auto Different ial panel - Blood CBC and differential Lab Routine Other iron deficiency anemia Ordered: 01/30/2024 [facility] Work Phone: Comment on above: Ordered: 01/30/2024 Payers Date Payer Category Payer Managed Care HMO (unspecified) [id number] 1985 Unknown [id number] 2.16.84 [id number] 1985 Unknown [id number] 2.16.84 [id number] 1985 Unknown [id number] 2.16.84 0.1.421839.3.579.2.593 1985 Unknown [id number] 2.16.84 0.1.065309.3.579.2.593 1985 Unknown [id number] 2.16.840.1.994728.3.579.2.1259 1985 Unknown [id number] 2.16.840.1.177928.3.579.2.1259 1985 Unknown [id number] 2.16.840.1.681071.3.579.2.1259 1985 Unknown [id number] 2.16.840.1.881829.3.579.2.1259 1959 Private Health Insurance [id number] 1959 Private Health Insurance [id number] 1959 Self-pay Unknown [id number] 2.16.84 [id number] Unknown [id number] 2.16.840.1.324467.3.579.2.531 Unknown [id number] Social History Date Type Detail Facility Tobacco smoking stat [facility] Unknown if ever smoked [facility] Work Phone: Start: 1985 Sex Assigned At Female [facility] Tobacco smoking stat us NHIS Tobacco smoking consumption unknown [facility] Start: 11-15-2022 Gender identity Identifies as female gender (finding) [facility] Start: 11-15-2022 Sexual orientation Heterosexual (finding) [facility] Start: 12-21-2023 Sex Female (finding) [facility] History of Present illness Narrative 01-30-2024 LUKAS Hillman - 01/30/2024 9:30 AM EST Note Date & Type Note Facility 01-30-2024 History of Presen t illness Narrative Reason for Appointment: Patient ID: Briana Mason is a 38 y.o. female who presents for Post-op Visit (6 week Hyst) Patient presents today for 6 week Hyst Post Op Follow Up appointment. MEDICATIONS Current Outpatient Medications Medication Instructions albuterol HFA 90 mcg/act inhaler 2 puffs, Inhalation, Every 6 hours PRN ascorbic acid (Vitamin C) 250 MG chewable tablet Chew cholecalciferol (Vitamin D-3) 125 MCG (5000 UT) capsule clobetasol (Temovate) 0.05 % cream loratadine (CLARITIN) 10 mg, Daily Multiple Vitamins-Minerals (MULTI ADULT GUMMIES PO) ALLERGIES No Known Allergies PROBLEMS Active Ambulatory Problems Diagnosis Date Noted Iron deficiency anemia 11/21/2023 Acute bronchitis due to other specified organisms 11/21/2023 Postop check 01/30/2024 Resolved Ambulatory Problems Diagnosis Date Noted No Resolved Ambulatory Problems Past Medical History: Diagnosis Date Asthma ([facility]) HISTORY PAST MEDICAL HISTORY SOCIAL HISTORY Past Medical History: Diagnosis Date Asthma ([facility]) Social History Tobacco Use Smoking status: Not on file Smokeless tobacco: Not on file Substance Use Topics Alcohol use: Not on file Drug use: Not on file FAMILY HISTORY Family History Problem Relation Name Age of Onset Cancer Father Diabetes Maternal Grandmother Diabetes Maternal Grandfather Cancer Paternal Grandmother Cancer Paternal Grandfather SURGICAL HISTORY Past Surgical History: Procedure Laterality Date BREAST CYST EXCISION Right SECTION, LOW TRANSVERSE 11/26/2012 SECTION, LOW TRANSVERSE 09/22/2015 SECTION, LOW TRANSVERSE 01/20/2018 DENTAL SURGERY ROBOTIC ASSISTED HYSTERECTOMY 12/20/2023 REVIEW OF SYSTEMS Review of Systems: Review of Systems Constitutional: Negative. HENT: Negative. Eyes: Negative. Respiratory: Negative. Cardiovascular: Negative. Gastrointestinal: Negative. Genitourinary: Negative. Musculoskeletal: Negative. Skin: Negative. Neurological: Negative. All other systems reviewed and are negative. Hematological: Negative. Endocrine: Negative. Allergic/Immunologic: Negative. OBJECTIVE Objective: Physical Exam Constitutional: Appearance: Normal appearance. She is well-developed. Genitourinary: Vulva normal. Vaginal cuff intact. Cervix is absent. Uterus is absent. Cardiovascular: Rate and Rhythm: Normal rate and regular rhythm. Pulmonary: Effort: Pulmonary effort is normal. Breath sounds: Normal breath sounds. Abdominal: General: Bowel sounds are normal. There is no distension. Palpations: Abdomen is soft. Tenderness: There is no abdominal tenderness. There is no guarding or rebound. Musculoskeletal: General: No swelling. Normal range of motion. Right lower leg: No edema. Left lower leg: No edema. Neurological: Mental Status: She is alert and oriented to person, place, and time. Skin: General: Skin is warm and dry. Psychiatric: Mood and Affect: Mood normal. Behavior: Behavior normal. Vitals and nursing note reviewed. 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 Vitals: Estimated body mass index is 29.35 kg/m as calculated from the following: Height as of 24: 5' 4 . Weight as of this encounter: 171 lb. BP: 120/78 Patient's last menstrual period was 11/07/2022. ASSESSMENT & PLAN ICD-10-CM 1. Postop check Z09 Post Op Follow Up: Patient presents today for a 6 week postop check following a Da Augusto assisted Laparoscopic Hysterectomy. Surgery execution and pathology results were discussed in great detail with the patient. Pelvic exam was performed and vaginal cuff was noted as healing well. Sutures were present and removed with ring forceps. Patient has been instructed to sustain from sexual intercourse for one more week. All other restrictions have otherwise been lifted. Removed incision sutures from abdomen. Follow Up: Patient is to return in 1 year for annual exam unless needed otherwise. Documented by Taylor Gonzales LPN on behalf of: LUKAS Hillman documented in this encounter [facility] History of Present illness Narrative 12-27-2023 LUKAS Hillman - 12/27/2023 1:00 PM EST Note Date & Type Note Facility 12-27-2023 History of Presen t illness Narrative Reason for Appointment: Patient ID: Briana Mason is a 38 y.o. female who presents for Post-op Visit Patient presents today for 1 Week Post Op Follow Up appointment. MEDICATIONS Current Outpatient Medications Medication Instructions albuterol HFA 90 mcg/act inhaler 2 puffs, Inhalation, Every 6 hours PRN ascorbic acid (Vitamin C) 250 MG chewable tablet Oral cholecalciferol (Vitamin D-3) 125 MCG (5000 UT) capsule clobetasol (Temovate) 0.05 % cream ferrous sulfate (FERROUSUL) 325 mg, Oral, 2 times daily loratadine (CLARITIN) 10 mg, Oral, Daily Multiple Vitamins-Minerals (MULTI ADULT GUMMIES PO) ALLERGIES No Known Allergies PROBLEMS Active Ambulatory Problems Diagnosis Date Noted Iron deficiency anemia 11/21/2023 Acute bronchitis due to other specified organisms 11/21/2023 Resolved Ambulatory Problems Diagnosis Date Noted No Resolved Ambulatory Problems Past Medical History: Diagnosis Date Asthma ([facility]) HISTORY PAST MEDICAL HISTORY SOCIAL HISTORY Past Medical History: Diagnosis Date Asthma ([facility]) Social History Tobacco Use Smoking status: Not on file Smokeless tobacco: Not on file Substance Use Topics Alcohol use: Not on file Drug use: Not on file FAMILY HISTORY Family History Problem Relation Name Age of Onset Cancer Father Diabetes Maternal Grandmother Diabetes Maternal Grandfather Cancer Paternal Grandmother Cancer Paternal Grandfather SURGICAL HISTORY Past Surgical History: Procedure Laterality Date BREAST CYST EXCISION Right SECTION, LOW TRANSVERSE 11/26/2012 SECTION, LOW TRANSVERSE 09/22/2015 SECTION, LOW TRANSVERSE 01/20/2018 DENTAL SURGERY REVIEW OF SYSTEMS Review of Systems: Review of Systems Constitutional: Negative. HENT: Negative. Eyes: Negative. Respiratory: Negative. Cardiovascular: Negative. Gastrointestinal: Negative. Genitourinary: Negative. Musculoskeletal: Negative. Skin: Negative. Neurological: Negative. All other systems reviewed and are negative. Hematological: Negative. Endocrine: Negative. Allergic/Immunologic: Negative. OBJECTIVE Objective: Physical Exam Constitutional: Appearance: Normal appearance. She is normal weight. HENT: Head: Normocephalic. Cardiovascular: Rate and Rhythm: Normal rate. Pulses: Normal pulses. Pulmonary: Effort: Pulmonary effort is normal. Breath sounds: Normal breath sounds. Abdominal: Palpations: Abdomen is soft. Comments: Abdominal ecchymosis post total abdominal hysterectyomy Musculoskeletal: General: Normal range of motion. Neurological: General: No focal deficit present. Mental Status: She is alert and oriented to person, place, and time. Psychiatric: Mood and Affect: Mood normal. Behavior: Behavior normal. Thought Content: Thought content normal. Judgment: Judgment normal. Vitals and nursing note reviewed. Vitals: Estimated body mass index is 29.32 kg/m as calculated from the following: Height as of 24: 5' 4 . Weight as of this encounter: 170 lb 12.8 oz. BP: 114/74 No LMP recorded. ASSESSMENT & PLAN ICD-10-CM 1. Postop check Z09 Post Op Follow Up: Patient presents today for a one week postop check after having a Da Augusto assisted Laparoscopic Hysterectomy. Concerted to total abdominal open hysterectomy. Patient is doing well but has minor complaints of pain. Incisions has been noted as healing well with no signs and symptoms of infection. Follow Up: Patient is to return in 5 weeks for 6 week post operative evaluation Documented by LUKAS Hillman on behalf of: LUKAS Hillman documented in this encounter [facility] History of Present illness Narrative 11-21-2023 Danii Daly NP - 11/21/2023 8:01 PM EDTHUMBKELVIN POWER - 11/21/2023 7:00 PM EDEunice Daly NP [...] when breathing. 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 female who presents for EMBX and Pre-op Visit Patient presents today for Pre Op/Endometrial Biopsy appointment. Patient is scheduled to undergo Da Augusto assisted Laparoscopic Hysterectomy, possible exploratory laparotomy, possible BSO, possible cystoscopy on 11/24/[address] Still at [facility]. MEDICATIONS Current Outpatient Medications Medication Instructions cholecalciferol (Vitamin D-3) 125 MCG (5000 UT) capsule ferrous sulfate (FERROUSUL) 325 mg, Oral, 2 times daily Multiple Vitamins-Minerals (MULTI ADULT GUMMIES PO) ALLERGIES No Known Allergies PROBLEMS Active Ambulatory Problems Diagnosis Date Noted No Active Ambulatory Problems Resolved Ambulatory Problems Diagnosis Date Noted No Resolved Ambulatory Problems Past Medical History: Diagnosis Date Asthma (CMS/HCC) HISTORY PAST MEDICAL HISTORY SOCIAL HISTORY Past Medical History: Diagnosis Date Asthma (CMS/HCC) Social History Tobacco Use Smoking status: Not on file Smokeless tobacco: Not on file Substance Use Topics Alcohol use: Not on file Drug use: Not on file FAMILY HISTORY Family History Problem Relation Name Age of Onset Cancer Father Diabetes Maternal Grandmother Diabetes Maternal Grandfather Cancer Paternal Grandmother Cancer Paternal Grandfather SURGICAL HISTORY Past Surgical History: Procedure Laterality Date BREAST CYST EXCISION Right SECTION, LOW TRANSVERSE 11/26/2012 SECTION, LOW TRANSVERSE 09/22/2015 SECTION, LOW TRANSVERSE 01/20/2018 DENTAL SURGERY REVIEW OF SYSTEMS Review of Systems: Review of Systems Constitutional: Negative. HENT: Negative. Eyes: Negative. Respiratory: Negative. Cardiovascular: Negative. Gastrointestinal: Negative. Genitourinary: Positive for dyspareunia, menstrual problem and pelvic pain. Musculoskeletal: Negative. Skin: Negative. Neurological: Negative. All other systems reviewed and are negative. Hematological: Negative. Endocrine: Negative. Allergic/Immunologic: Negative. OBJECTIVE Objective: Physical Exam Constitutional: Appearance: Normal appearance. She is well-developed. Genitourinary: Vulva normal. Cardiovascular: Rate and Rhythm: Normal rate and regular rhythm. Pulmonary: Effort: Pulmonary effort is normal. Breath sounds: Normal breath sounds. Abdominal: General: Bowel sounds are normal. There is no distension. Palpations: Abdomen is soft. Tenderness: There is no abdominal tenderness. There is no guarding or rebound. Musculoskeletal: General: No swelling. Normal range of motion. Right lower leg: No edema. Left lower leg: No edema. Neurological: Mental Status: She is alert and oriented to person, place, and time. Skin: General: Skin is warm and dry. Psychiatric: Mood and Affect: Mood normal. Behavior: Behavior normal. Vitals and nursing note reviewed. 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 Vitals: Estimated body mass index is 29.59 kg/m as calculated from the following: Height as of 11/22/22: 5' 4 . Weight as of 01/26/23: 172 lb 6.4 oz. BP: No LMP recorded. ASSESSMENT & PLAN ICD-10-CM 1. Pre-op examination Z01.818 2. Menorrhagia with regular cycle N92.0 3. Pelvic pain in female R10.2 4. Dyspareunia in female N94.10 5. Dysmenorrhea N94.6 EMBX: Patient was placed in dorsal lithotomy position with feet in stirrups. A sterile speculum was placed into the vagina and the cervix was visualized. The cervix was grasped with a single tooth tenaculum. The endometrial pipette was placed through the cervix into the uterus, endometrial curettage was performed and sampling was obtained, endometrial curettings were placed in formalin, and single tooth tenaculum was removed. Excellent hemostasis was assured. All instruments were removed from vagina. Pre Op: Patient is doing well but has complaints of pelvic pain, menorrhagia, dyspareunia, and dysmenorrhea. I have discussed conservative management vs. surgical management with the patient in detail and patient desires surgical management at this time. Patient will undergo Da Augusto assisted Laparoscopic Hysterectomy, possible exploratory laparotomy, possible BSO, possible cystoscopy on 11/24/2023. Surgical consents were signed, mmc was reviewed, and patient is to proceed to [facility] OR. Follow Up: Patient is to follow up at 1 & 6 weeks post operative to assess proper healing and recovery from procedure. Documented by Marcy Bang LPN on behalf of: Amilcar Still DO documented in this encounter [facility] Evaluation note Note Date & Type Note Facility Evaluation note [facility] Evaluation note Note Date & Type Note Facility Evaluation note Diagnosis Acute bronchitis due to other specified organisms- Primary documented in this encounter [facility] Evaluation note Note Date & Type Note Facility Evaluation note Diagnosis Acute bronchitis due to other specified organisms- Primary Postop check Follow-up examination, following unspecified surgery documented in this encounter [facility] Evaluation note Note Date & Type Note Facility Evaluation note Diagnosis Pre-op examination Menorrhagia with regular cycle Pelvic pain in female Unspecified symptom associated with female genital organs Dyspareunia in female Dysmenorrhea documented in this encounter [facility] Evaluation note Note Date & Type Note Facility Evaluation note Diagnosis Acute bronchitis due to other specified organisms- Primary Postop check Follow-up examination, following unspecified surgery Other iron deficiency anemia documented in this encounter [facility] Summary Purpose Family History No Family [...] Chief Complaint Screening n93.9 Chief Complaint Unknown Chief Complaint Admit Date Unknown November 07, 2023 3:00pm Unknown December 20, 2023 10:53am Additional Source Comments INFORMATION SOURCE (unrecogn ized section and content) DATE CREATED AUTHOR 06/04/2022 [facility] DATE CREATED AUTHOR AUTHOR'S ORGANIZ ATION 12/25/2023 [facility] DATE CREATED AUTHOR AUTHOR'S ORGANIZ ATION 02/01/2024 [facility] EPIC Care Teams (unrecognized [...] November 07, 2023 End: November 07, 2023 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 Relationship Specialty Start Date End Date John Alicia MD [address] [place] [phone] PCP - General Family Medicine 11/21/23 Danii Daly NP [address] [place] [phone] Nurse Practitioner Family Medicine 11/21/23 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 Relationship Specialty Start Date End Date John Alicia MD [address] [place] [phone] PCP - General Family Medicine 11/21/23 Danii Daly NP [address] [place] [phone] Nurse Practitioner Family Medicine 11/21/23 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 Relationship Specialty Start Date End Date John Alicia MD [address] [place] [phone] PCP - General Family Medicine 11/21/23 Danii Daly NP [address] [place] [phone] Nurse Practitioner Family Medicine 11/21/23 Team Status: Inactive Member Role Status Dates Danii Daly Primary Care Provider Active Sta rt: December 20, 2023 End: December 20, 2023 Amilcar Still DO Attending Provider Active Start : December 20, 2023 End: December 20, 2023 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 Relationship Specialty Start Date End Date John Alicia MD [address] [place] [phone] PCP - General Family Medicine 11/21/23 Danii Daly NP [address] [place] [phone] Nurse Practitioner Family Medicine 11/21/23 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 Relationship Specialty Start Date End Date John Alicia MD [address] [place] [phone] PCP - General Family Medicine 11/21/23 Danii Daly NP [address] [place] [phone] Nurse Practitioner Family Medicine 11/21/23 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 Relationship Specialty Start Date End Date John Alicia MD [address] [place] [phone] PCP - General Family Medicine 11/21/23 Danii Daly NP [address] [place] [address] Nurse Practitioner Family Medicine 11/21/23 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 Relationship Specialty Start Date End Date John Alicia MD [address] [place] [phone] PCP - General Family Medicine 11/21/23 Danii Daly NP [address] [place] [phone] Nurse Practitioner Family Medicine 11/21/23 Goals (unrecognized section and content) Goals may be documented in a n alternate sectionGoals may be documented in an alternate sectionGoals may be documented in an alternate sectionGoals may be documented in an alternate section Reason for Visit (unrecogniz ed section and content) Reason Comments Post-op Visit Reason Comments EMBX Pre-op Visit Reason Comments Post-op Visit 6 week Hyst FOR RECORDS PERTAINING TO PATIENTS WHO ARE [...] BE BASED ON THE PRIMARY CLINICAL RECORDS. [employer] [facility]. provides no warranty or guarantee of the accuracy or completeness of information in this document.
== END 2024-02-09 12:04 | disposition home or self-care (01) ==
LOC: LAB 12:03
PROVIDERS: PCP Nurse Practitioner; Visit Provider Physician Assistant
DX: D50.8 Other iron deficiency anemias (principal)
CPT/HCPCS: 36415; 85025